=== PATIENT | female | born 1960 | race Asian ===

== ENCOUNTER 2021-06-27 11:31 | Outpatient (REF) | payer OTHER, SELFPAY ==
[2021-06-27 12:35] LABS: Influenza A PCR NEGATIVE (Negative); Influenza B PCR NEGATIVE (Negative); Resp Syncy Virus RNA Qual PCR NEGATIVE (Negative); SARS COV2 PCR INHOUSE NEGATIVE (Negative)
== END 2021-06-27 11:32 | disposition home or self-care (01) ==
LOC: HO.LAB 11:31
PROVIDERS: Visit Provider Internal Medicine
DX: Z20.822 Contact with and (suspected) exposure to COVID-19 (principal)
CPT/HCPCS: 0241U; 36415; C9803

== ENCOUNTER 2024-05-25 10:09 | Outpatient (AMB) | payer OTHER, SELFPAY ==
[2024-05-25 10:21] VITALS: BP 110/76; PULSE 80; RESP 15; O2SAT 96; BMI 34.0
--- NOTE | 2024-05-25 10:21 | A.OFFVIS_ITS ---
Vital Signs 05/25/24 10:21 Height 5 ft 3 in Weight 192 lb BMI 34.0 BP 110/76 Blood Pressure Location Rt brachial Position Sitting Respiration 15 Pulse 80 Pulse Oximetry (%) 96 Oxygen Delivery Method Room Air Intake Visit Reasons: back pain Allergies latex Allergy (Verified 05/26/24 14:32) hives, swelling Medication List - Last Reconciled 05/25/24 by Cara Mcgovern LPN acetaminophen 650 mg PO QID PRN amlodipine 10 mg PO DAILY aspirin 81 mg PO DAILY atorvastatin 80 mg PO DAILY clopidogrel 75 mg PO DAILY losartan 25 mg PO DAILY metoprolol succinate ER (Toprol XL) 25 mg PO DAILY HPI HPI back pain: Details: 63-year-old female who presents today to the office for an evaluation of back pain.? She reports pain in her back that radiates to the right thigh and the calf. The pain is worse with standing and walking. She reports muscle stiffness in her back and leg. She has gait imbalance issues but suspects it might be related to her knee pain. She has recently received intraarticular knee injection in her left knee. She has not received a back injection recently. She did receive a facet injection at [facility] which provided short-term relief. She had multiple injections with Dr. Martínez in the past. She is status post right TKR. She was supposed to undergo left TKR but her surgeon recommended treating back pain first. Her left TKR plan was complicated by a cardiac attack, and she had a stent placed. [facility] Medical History (Updated 06/09/24 @ 14:16 by Darius Eisenberg MD) Asthma Surgical History (Updated 05/26/24 @ 14:31 by Nova Becerra Archie) History of total right knee replacement History of heart artery stent Family History (Updated 05/27/24 @ 11:32 by Lashaun Wetzel) Brother Heart attack Sister Stented coronary artery Social History (Updated 05/27/24 @ 11:33 by Lashaun Wetzel) Alcohol intake: never Patient Tobacco Use Status: Never used Tobacco Current occupational status: unemployed Review of Systems Const All systems reviewed & are unremarkable except as noted in HPI and below Physical Exam Vital Signs: Last Vital Signs Pulse 80 05/25/24 10:21 Resp 15 05/25/24 10:21 BP 110/76 05/25/24 10:21 Pulse Ox 96 05/25/24 10:21 Oxygen Delivery Method Room Air 05/25/24 10:21 BMI result Body Mass Index 34.0 General: Appears afebrile. Alert and oriented. Mood and affect appropriate. Follows and participates in conversation appropriately. Respiratory effort is unlabored. Able to transition from sit to stand unassisted. Ambulates with bilaterally normal heel strike and toe off. Results Reviewed Results Reviewed: No imaging is available for review. Assessment & Plan Assessment & Plan (1) Lumbar radiculopathy: Code(s): M54.16 - Radiculopathy, lumbar region Category: Medical (2) Lumbar spondylosis: Code(s): M47.816 - Spondylosis without myelopathy or radiculopathy, lumbar region Category: Medical Plan I recommended continuing conservative management at this time, given her upcoming travel. Once she is back from her travels, we will consider transforaminal epidural steroid injection vs. facet blocks vs. temporary PNS b ased on her symptoms at the time. Scribed for Dr. Eisenberg by Rohan Ward, medical record librarian, on 05/25/2024. I, Dr. Eisenberg, have personally reviewed and agree with the information entered by the scribe. Coding Level of Care Code New Pt Level 4 (26806) Diagnoses Lumbar radiculopathy M54.16 Lumbar spondylosis M47.816
== END 2024-05-25 10:59 | disposition home or self-care (01) ==
LOC: HO.PMC 10:09
PROVIDERS: PCP Family Medicine; Visit Provider Internal Medicine
DX: M54.16 Radiculopathy, lumbar region (principal); M47.816 Spondylosis without myelopathy or radiculopathy, lumbar region
CPT/HCPCS: 99204

== ENCOUNTER → 2024-05-25 10:09 | Outpatient (BNVA) | payer OTHER, SELFPAY | PROVIDERS: PCP Family Medicine; Visit Provider Internal Medicine ==

== ENCOUNTER 2024-05-26 09:47 | Outpatient (REF) | payer OTHER, SELFPAY | END 2024-05-26 09:48 | disposition home or self-care (01) | LOC: HO.HOSX 09:47 | PROVIDERS: Visit Provider Orthopaedic Surgery | DX: M25.562 Pain in left knee (principal) | CPT/HCPCS: 73562 ==

== ENCOUNTER 2024-05-26 13:57 | Outpatient (AMB) | payer OTHER, SELFPAY ==
--- NOTE | 2024-05-26 14:08 | MHC.OFFVIS ---
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 The patient did undergo right total knee replacement surgery on 05/14/2023 performed by another surgeon. She reports minimal discomfort in her right knee. Her left knee pain has gotten worse over the last year in spite of continued non operative treatments. The patient states that she was due to undergo left total knee replacement surgery this past summer but suffered a myocardial infarction on 11/26/2023. She underwent cardiac stent placement at [facility] the following day. She is due to see her undercutter over the next few weeks. The patient did have a cortisone injection given into her left knee on 05/11/2024. She got only temporary relief from that injection. The patient has difficulty walking even short distances because of her knee pain. She has tried Tylenol and aspirin which gave her minimal relief. She has had viscosupplementation injections in the past which gave her fairly good relief. Allergies latex Allergy (Verified 05/26/24 14:32) hives, swelling Medication List - Last Reconciled 05/26/24 by Miguel Dickson MD acetaminophen 650 mg PO QID PRN amlodipine 10 mg PO DAILY aspirin 81 mg PO DAILY atorvastatin 80 mg PO DAILY clopidogrel 75 mg PO DAILY losartan 25 mg PO DAILY metoprolol succinate ER (Toprol XL) 25 mg PO DAILY [facility] Surgical History (Updated 05/26/24 @ 14:31 by FRANCISCO Hernandez) History of total right knee replacement History of heart artery stent Social History (Updated 05/26/24 @ 14:31 by FRANCISCO Hernandez) Patient Tobacco Use Status: Never used Tobacco Current occupational status: unemployed Physical Exam Vital Signs: BMI result Body Mass Index 34.0 Const Other: Well-nourished well-developed very friendly female awake alert and oriented x3 in no acute distress Extrem Other: Bilateral lower extremity examination shows good capillary refill, no skin lesions noted, normal sensation light touch Left knee examination shows a minimal effusion, palpable crepitus with range of motion, pain with range of motion, no instability Results Reviewed Results Reviewed: X-rays of the patient's left knee show end-stage degenerative joint disease with grade 4 [id number] arthritis in the medial compartment, subchondral sclerosis, no acute bony abnormalities Assessment & Plan Assessment & Plan (1) Osteoarthritis of left knee: Code(s): M17.12 - Unilateral primary osteoarthritis, left knee Category: Medical Plan Mrs. Mello presents with progressively worsening left knee pain due to osteoarthritis. I had a lengthy discussion with the patient regarding the treatment options. She wishes to hold off on left total knee replacement surgery for now. I agree with this plan. I will see whether or not the patient's insurance company will cover another viscosupplementation injection for her left knee. I will see her back once the injection is available. If she fails continued non operative treatments we will further discuss the risks and benefits of left total knee replacement surgery. The patient will follow-up as instructed. I spent 20 minutes in reviewing the patient's records and imaging studies, seeing the patient and documenting in the medical record. Orders: Orders XR knee LT 3V Today M25.562 - Pain in left knee Coding Level of Care Code New Pt Level 3 (80695) Complex EM visit Add On G2211 Diagnoses Osteoarthritis of left knee M17.12
[2024-05-26 14:33] VITALS: BMI 34.0
== END 2024-05-26 14:51 | disposition home or self-care (01) ==
LOC: HO.HOS 13:57
PROVIDERS: Visit Provider Orthopaedic Surgery
DX: M17.12 Unilateral primary osteoarthritis, left knee (principal)
CPT/HCPCS: 99203; G2211

== ENCOUNTER 2024-05-27 10:45 | Outpatient (AMB) | payer OTHER, SELFPAY ==
--- NOTE | 2024-05-27 11:18 | MHC.OFFVIS ---
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 She has history of coronary disease and had presentation for acute coronary syndrome and circumflex PCI done by Dr. Ramirez recently. She is on dual antiplatelet therapy at this point. She also had diffuse LAD stenosis at that time which was decided to be medically managed. She has done well since then. She is on Toprol-XL amlodipine and losartan. Blood pressure is well controlled. Taking medications regularly. Denying any significant symptoms. She had right knee surgery and subsequently developed some back issues which she is still struggling with. 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 She is asking whether she can have left knee surgery done. [facility] Medical History (Updated 05/27/24 @ 15:23 by Peterson Crocker MD) Asthma Surgical History (Updated 05/26/24 @ 14:31 by Nova Becerra Archie) History of total right knee replacement History of heart artery stent Family History (Updated 05/27/24 @ 11:32 by Lashaun Wetzel) Brother Heart attack Sister Stented coronary artery Social History (Updated 05/27/24 @ 11:33 by Lashaun Wetzel) Alcohol intake: never Patient Tobacco Use Status: Never used Tobacco Current occupational status: unemployed Review of Systems Const Denies weakness ENT Denies dizziness Card Denies chest pain, Denies chest pain with activity, Denies syncope, Denies rapid heart rate, Denies pedal edema, Denies edema, Denies leg edema, Denies lightheadedness, Denies palpitations, Denies dyspnea, Denies dyspnea on exertion and Denies orthopnea Resp Denies cough, Denies dyspnea and Denies dyspnea on exertion GI Denies hematochezia and Denies change in stool character Musc Denies abnormal gait, Denies muscle cramps, Denies muscle weakness, Denies numbness, Denies radiating pain into limb and Denies tingling Neuro Denies abnormal gait, Denies dizziness, Denies syncope, Denies numbness, Denies tingling and Denies weakness Endo Denies palpitations Physical Exam Vital Signs: Last Vital Signs Pulse 67 05/27/24 11:19 BP 118/70 05/27/24 11:19 BMI result Body Mass Index 33.2 GENERAL APPEARANCE: in no acute distress, pleasant. NECK: no carotid bruit, no jugular venous distention. SKIN: no suspicious lesions, warm and dry. HEART: no murmurs, regular rate and rhythm. LUNGS: clear to auscultation bilaterally. ABDOMEN: soft, nontender. EXTREMITIES: no edema. PERIPHERAL PULSES: equal. NEUROLOGIC: No gross deficits, AAO X 3 Office Procedures EKG Details: Sinus rhythm 67 beats per minute, normal axis, normal ECG with QT interval 418 milliseconds [id number], Complete Assessment & Plan Assessment & Plan (1) Coronary artery disease: Code(s): I25.10 - Atherosclerotic heart disease of [place] coronary artery without angina pectoris Category: Medical (2) Stable angina: Code(s): I20.89 - Other forms of angina pectoris Category: Medical Plan Pleasant 63 year female who is here for 1st office visit. She has background of coronary disease with acute coronary syndrome presentation and left circumflex PCI done by Dr. Ramirez. Lad had diffuse disease which was medically treated. Her blood pressure is well controlled. She wants to undergo left knee surgery but already has been getting some back issues. I have advised her that she should let the back problem settled before she goes for left knee surgery because it may limit her further and affect her rehabilitation and recovery. She has not high-risk for surgery though and is intermediate risk in case she wants to pursue that down the line. I have advised her to complete 1 year of dual antiplatelet therapy but if situation changes and she needs urgent surgery then Plavix can be held and she can go for surgery on aspirin. Toprol-XL should not be discontinued in the perioperative period. Coding Level of Care Code New Pt Level 4 (56334) Diagnoses Coronary artery disease I25.10 Stable angina I20.89 CPT Codes EKG - CPT: 22337-[id number], Complete ([id number])
[2024-05-27 11:19] VITALS: BP 118/70; PULSE 67; BMI 33.2
== END 2024-05-27 11:50 | disposition home or self-care (01) ==
LOC: HO.HCS 10:46
PROVIDERS: Visit Provider Internal Medicine Cardiovascular Disease
DX: I25.10 Atherosclerotic heart disease of native coronary artery without angina pectoris (principal); I20.89 Other forms of angina pectoris
CPT/HCPCS: 93010; 99204

== ENCOUNTER → 2024-05-27 10:45 | Outpatient (BNVA) | payer OTHER, SELFPAY | PROVIDERS: Visit Provider Internal Medicine Cardiovascular Disease | DX: I25.118 Atherosclerotic heart disease of native coronary artery with other forms of angina pectoris (principal) | CPT/HCPCS: 93005 ==

== ENCOUNTER 2024-08-18 14:47 | Outpatient (AMB) | payer OTHER, SELFPAY ==
--- NOTE | 2024-08-18 14:53 | A.OFFVIS_ITS ---
Vital Signs 08/18/24 14:56 Height 5 ft 3 in Weight 187 lb 6 oz BMI 33.2 Intake Visit Reasons: Inj-Left Knee Durolane Intake Note: Brittani is a 63 year old female who presents with complaints of progressively worsening left knee pain. She describes her pain as sharp and severe in nature. She has had cortisone injections in the past which gave her minimal relief. She has also had viscosupplementation injections which gave her temporary relief. If her pain continues in spite of non operative treatment she is considering undergoing left total knee replacement surgery later this year. Allergies latex Allergy (Verified 08/18/24 14:56) hives, swelling Medication List - Last Reconciled 08/18/24 by Miguel Dickson MD acetaminophen 650 mg (2 x 325 mg) PO QID PRN amlodipine 10 mg PO DAILY aspirin 81 mg PO DAILY atorvastatin 80 mg PO DAILY clopidogrel 75 mg PO DAILY losartan 25 mg PO DAILY metoprolol succinate ER (Toprol XL) 25 mg PO DAILY ON LICENSE OF [facility] Medical History (Updated 06/09/24 @ 14:16 by Darius Eisenberg MD) Asthma Surgical History (Updated 05/26/24 @ 14:31 by Nova Becerra [facility]) History of total right knee replacement History of heart artery stent Family History (Updated 05/27/24 @ 11:32 by Lashaun Wetzel) Brother Heart attack Sister Stented coronary artery Social History (Updated 05/27/24 @ 11:33 by Lashaun Wetzel) Alcohol intake: never Patient Tobacco Use Status: Never used Tobacco Current occupational status: unemployed Physical Exam Vital Signs: BMI result Body Mass Index 33.2 Const Other: Well-nourished well-developed very friendly female awake alert and oriented x3 in no acute distress Extrem Other: Left knee examination shows a minimal effusion, palpable crepitus with range motion, pain with range of motion, range of motion from -3 degrees to 115 degrees, no instability Office Procedures AMB Joint Injection/Aspiration Joint Injection/Aspiration Primary Site: left knee Prep: site was prepped using aseptic technique Injected: 60 mg of (Durolane viscosupplementation) and 1% plain lidocaine Procedure: The patient tolerated the procedure well Coding 31683 - Large joint Procedure code (CPT) selection complete Results Reviewed Results Reviewed: X-rays of the patient's left knee taken previously show severe joint space narrowing, subchondral sclerosis, no acute bony abnormalities Assessment & Plan Assessment & Plan (1) Osteoarthritis of left knee: Code(s): M17.12 - Unilateral primary osteoarthritis, left knee Category: Medical Plan Ms. Mello presents with left knee pain due to osteoarthritis. The risks and be nefits of a left knee Durolane viscosupplementation injection were discussed at length with the patient. The patient wished to proceed. She tolerated the injection well. If she does not get lasting relief from the injection she is considering undergoing left total knee replacement surgery later this year. She will contact my office to pick a surgery date should she choose to do so. I discussed with the patient the fact that she should have no lasting disability from knee arthritis after undergoing total knee replacement surgery. Feel free to call me at any time should questions regarding her orthopedic management arise. I spent 21 minutes in reviewing the patient's records and imaging studies, seeing the patient and documenting in the medical record. Orders: Orders AMB Joint Injection/Aspiration Today M17.12 - Unilateral primary osteoarthritis, left knee Coding Level of Care Code Est Pt Level 3 (21500) Complex EM visit Add On G2211 Diagnoses Osteoarthritis of left knee M17.12 CPT Codes Coding - 75067 Large joint: 12225 - Large joint ([id number])
[2024-08-18 14:56] VITALS: BMI 33.2
--- OUTSIDE RECORDS SUMMARY | 2024-08-18 15:47 | XMS_ITS | Patient Health Record ---
[facility] [place] Address [address] [place] [address] Care Team Providers Care Director Of Counterintelligence Name Role Phone Germania Ruffin Primary Care Provider Kelvin Sullivan Unavailable [phone] Allergies Allergen (clinical drug ingredient) Drug/Non Drug Allergy documented on EMR Reaction Allergy Type Onset Date Status Latex Latex Unknown Allergy Active Reason For Referral No Information Medications Medication SIG (Take, Route, Fr equency, Duration) Notes Start Date End Date Status Acetaminophen 500 MG 1 capsule as needed Orally every 6 hrs Active Celecoxib 100 MG 1 capsule with food Orally Once a day for 30 day(s) Active Social History Tobacco Use: Social History Observation Description Date Details (start date - stop date) Never Smoker NA - NA Tobacco Use/Smoking Question Answer Notes Are you a: nonsmoker Additional Findings: Tobacco Non-User Current no n-smoker Alcohol Screen Question Answer Notes Did you have a drink containing alcohol in the p ast year? No Points 0 Interpretation Negative Tobacco use other than smoking: Question Answer Notes Are you an other tobacco user? No Plan Of Treatment No Information Insurance Providers Payer Name Payer Address Payer Phone Subscriber Number Group Number Insured Name Patient Relationship to Insured Coverage Start Date Coverage End Date [facility] [address] [place] [address] [phone] [id number] Brittani Mello Self - patient is the insured Medical (General) History Medical History History ICD Code asthma Back,Hip,and Knee pain Measles Mumps Chicken pox osteoarthritis Varicose veins Bunion Plantar fasciitis Surgical History Surgery Date(Month/Year) section 1993, 1996 appendectomy 2007
== END 2024-08-18 15:16 | disposition home or self-care (01) ==
PROVIDERS: PCP Family Medicine; Visit Provider Orthopaedic Surgery
DX: M17.12 Unilateral primary osteoarthritis, left knee (principal)
CPT/HCPCS: 20610; 99213

== ENCOUNTER → 2024-08-18 14:47 | Outpatient (BNVA) | payer OTHER, SELFPAY | PROVIDERS: PCP Family Medicine; Visit Provider Orthopaedic Surgery | DX: M17.12 Unilateral primary osteoarthritis, left knee (principal) | CPT/HCPCS: 20610; J2003; J7318 ==

== ENCOUNTER 2024-09-30 14:05 | Outpatient (AMB) | payer OTHER, SELFPAY ==
--- NOTE | 2024-09-30 14:12 | A.OFFVIS_ITS ---
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 She has history of coronary disease and had presentation for acute coronary syndrome and circumflex PCI done by Dr. Ramirez recently. She is on dual antiplatelet therapy at this point. She also had diffuse LAD stenosis at that time which was decided to be medically managed. She has done well since then. She is on Toprol-XL amlodipine and losartan. Blood pressure is well controlled. Taking medications regularly. Denying any significant symptoms. She had right knee surgery and subsequently developed some back issues which she is still struggling with. 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 She is asking whether she can have left knee surgery done. 09/30/2024: She is here for follow-up. Denying chest discomfort or shortness of breath. Main issue is arthritis in left knee as well as low back pain. She got a knee injection. She is following with pain management and was advised that lower back injection may help her but she is on Plavix. She is at this stage 10 months out of her primary event and can interrupt Plavix if required. [facility] Medical History Asthma Surgical History History of total right knee replacement History of heart artery stent Family History Brother Heart attack Sister Stented coronary artery Social History Alcohol intake: never Patient Tobacco Use Status: Never used Tobacco Current occupational status: unemployed Review of Systems Const Denies chills, Denies fatigue, Denies fever(s), Denies frequent falls, Denies weakness, Denies weight gain and Denies weight loss ENT Denies dizziness Card Denies chest pain, Denies leg edema, Denies lightheadedness, Denies palpitations, Denies dyspnea and Denies dyspnea on exertion Resp Denies cough, Denies dyspnea and Denies dyspnea on exertion GI Denies hematochezia Musc Denies abnormal gait, Denies muscle weakness, Denies numbness, Denies radiating pain into limb and Denies tingling Neuro Denies abnormal gait, Denies dizziness, Denies frequent falls, Denies numbness, Denies tingling and Denies weakness Endo Denies fatigue and Denies palpitations Physical Exam Vital Signs: Last Vital Signs Pulse 79 09/30/24 14:17 BP 130/66 09/30/24 14:17 BMI result Body Mass Index 34.5 GENERAL APPEARANCE: in no acute distress, pleasant. NECK: no carotid bruit, no jugular venous distention. SKIN: no suspicious lesions, warm and dry. HEART: no murmurs, regular rate and rhythm. LUNGS: clear to auscultation bilaterally. ABDOMEN: soft, nontender. EXTREMITIES: no edema. PERIPHERAL PULSES: equal. NEUROLOGIC: No gross deficits, AAO X 3 Assessment & Plan Assessment & Plan (1) Coronary artery disease: Code(s): I25.10 - Atherosclerotic heart disease of [place] coronary artery without angina pectoris Category: Medical (2) Stable angina: Code(s): I20.89 - Other forms of angina pectoris Category: Medical Plan Pleasant 63 year female who is here for follow-up. She has background of coronary disease with acute coronary syndrome presentation and left circumflex PCI done by Dr. Ramirez. LAD had diffuse disease which was medically treated. Her blood pressure is well controlled. She has knee arthritis. She is intermediate risk for surgery whenever she plans to do that. Ideally should be operated on aspirin and Toprol should not be stopped in the perioperative period. In terms of back injection, she can hold Plavix for 5 days and get the injection. After november I think Plavix will be discontinued and she will be on aspirin monotherapy which I have explained to her. Thank you for allowing me to participate in the care of your patient. Please feel free to contact me if you have any questions. Orders: Orders TSH reflex Free T4 Today R63.5 - Abnormal weight gain Coding Level of Care Code Est Pt Level 4 (10015) Diagnoses Coronary artery disease I25.10 Stable angina I20.89
[2024-09-30 14:17] VITALS: BP 130/66; PULSE 79; BMI 34.5
--- OUTSIDE RECORDS SUMMARY | 2024-09-30 16:40 | XMS_ITS | Patient Health Record ---
Author [facility] [place] Address [address] [place] [address] Care Team Providers Care Educational Coordinator Name Role Phone Germania Ruffin Primary Care Provider Kelvin Sullivan Unavailable [phone] Allergies Allergen (clinical drug ingredient) Drug/Non Drug [...] Insured Coverage Start Date Coverage End Date [facility] [address] [place] [address] [id number] Brittani Mello Self - patient is the insured Medical (General) History Medical History History ICD Code asthma Back,Hip,and Knee pain Measles Mumps Chicken pox osteoarthritis Varicose veins Bunion Plantar fasciitis Surgical History Surgery Date(Month/Year) section 1993, 1996 appendectomy 2007
== END 2024-09-30 14:59 | disposition home or self-care (01) ==
LOC: HO.HCS 14:06
PROVIDERS: PCP Family Medicine; Visit Provider Internal Medicine Cardiovascular Disease
DX: I25.118 Atherosclerotic heart disease of native coronary artery with other forms of angina pectoris (principal)
CPT/HCPCS: 99214

== ENCOUNTER → 2024-09-30 14:05 | Outpatient (BNVA) | payer OTHER, SELFPAY | PROVIDERS: PCP Family Medicine; Visit Provider Internal Medicine Cardiovascular Disease ==

== ENCOUNTER 2024-10-14 13:41 | Outpatient (AMB) | payer OTHER, SELFPAY ==
--- NOTE | 2024-10-14 13:44 | MHC.PC.OV ---
Vital Signs 10/14/24 13:46 Height 5 ft 2.6 in Weight 197 lb 6 oz BMI 35.4 BP 130/70 Blood Pressure Location Lt brachial Position Sitting Pulse 74 Pulse Source Pulse Oximeter Temp 97.1 F Temp Source Temporal Artery Scan Pulse Oximetry (%) 95 Oxygen Delivery Method Room Air Intake Visit Reasons: establish care Intake Note: Patient is a new patient here to establish care for HTN, Heart Attack, Arthritis, lower back pain, Right leg pain. Transferring care from Aliya Cedeño. Medical records have been requested and have received. Jack Setter Required: No Landscape Horticulture Instructor: Present Accompanied by: Spouse Allergies latex Allergy (Verified 10/14/24 13:46) hives, swelling Medication List - Last Reconciled 10/14/24 by Tia Thomas PA-C acetaminophen 975 mg PO TID PRN amlodipine 10 mg PO DAILY aspirin 81 mg PO DAILY atorvastatin 80 mg PO DAILY clopidogrel 75 mg PO DAILY losartan 25 mg PO DAILY metoprolol succinate ER (Toprol XL) 25 mg PO DAILY therapeutic multivitamin 1 tab PO DAILY Tobacco use date assessed: 10/14/24 Dental Screening Dental Screen Date: 10/14/24 Did you have a dental visit in the last 12 months?: Yes Did you have a dental problem in the last 6 months where you did not have access to dental care?: No Was dental information given to patient?: Patient has dentist HPI establish care HPI Details 63 year old female with past medical history of stable angina with watery artery disease and lumbar radiculopathy coming to the office for the 1st time.? In review of the notes patient follows with [facility] Cardiology last seen 09/30/2024. colonoscopy: 4-5 years ago mammogram: 2023 Presenting with weight gain and back pain. Reported a myocardial infarction last year, leading to stent placement and regular cardiology follow-up. Consideration for discontinuation of Plavix by November. Reports absence of chest pain or dyspnea. Post heart attack, she notes a 20-pound weight increase. Despite dietary vigilance, including restricted caloric intake, weight gain persists. Engages in limited physical activity due to pain. Reports persistent back pain, exacerbated following knee surgery and myocardial infarction, with radiation down the legs upon standing. Intermittent use of Tylenol due to drowsiness from prescribed medication. Weight gain coincides with medication changes post-heart attack, impacting patient's anxiety levels, although screening today is negative for depression/anxiety. [facility] Medical History Asthma Surgical History History of appendectomy History of 2 sections History of total right knee replacement History of heart artery stent Family History Brother Heart attack Sister Stented coronary artery [facility] Alcohol intake: never Patient Tobacco Use Status: Never used Tobacco e-Cigarette/Vaping Use: Never Used Second Hand Smoke Exposure: No service: No Current occupational status: unemployed Cognitive needs: No Hearing needs: No Vision needs: No Female Reproductive History Menstrual control method: none Questionnaire PHQ-9 Over the last 2 weeks, how often have you been bothered by any of the following problems? 1. Little interest or pleasure in doing things: not at all 2. Feeling down, depressed, or hopeless: not at all 3. Trouble falling or staying asleep, or sleeping too much: not at all 4. Feeling tired or having little energy: several days 5. Poor appetite or overeating: not at all 6. Feeling bad about yourself - or that you are a failure or have let yourself or your family down: not at all 7. Trouble concentrating on things, such as reading the newspaper or watching television: not at all 8. Moving or speaking so slowly that other people could have noticed. Or the opposite - being so fidgety or restless that you have been moving around a lot more than usual: not at all 9. Thoughts that you would be better off or of hurting yourself in some way: not at all Total score: 1 Depression Screening Interpretation: Negative Depression Screening Done: Yes Source: Developed by Drs. Pantera Zuniga, Keysha Brown, Aurelio Hernández and colleagues, with an educational moshe from [employer]. Thrive Questionnaire Date Thrive assessed: 10/14/24 I am a: Patient What is your living situation today?: I have a steady place to live Within the past 12 months, did the food you bought not last and you didn't have the money to get more?: Often true Within the past 12 months, did you worry whether your food would run out before you got money to buy more?: Sometimes True Do you have trouble paying for medicines?: Yes Do you have trouble getting transportation to medical appointments?: Yes Do you have trouble paying your heating and electricity bill?: No Do you have trouble taking care of your child, family member or friend?: I choose not to answer this question Do you have trouble with day-to-day activities such as bathing, preparing meals, shopping, managing finances, etc.?: I choose not to answer this question Are you currently unemployed and looking for a job?: No Are you interested in more education?: No Please select the resources that you would like help with: None Currently or been in a relationship where the following occur: No concerns reported THRIVE Score: 3 AUDIT C Alcohol Use Questionnaire (AUDIT-C) 1. How often do you have a drink containing alcohol?: Never Total Score: 0 BARBARA-7 AMB Questionnaire BARBARA-7 Date BARBARA - 7 assessed: 10/14/24 Feeling nervous, anxious, or on edge: 0 = Not at all Not being able to stop or control worryin = Not at all Worrying too much about different things: 0 = Not at all Trouble relaxin = Not at all Being so restless that it is hard to sit still: 1 = Several days Becoming easily annoyed or irritable: 0 = Not at all Feeling afraid as if something awful might happen: 0 = Not at all Total BARBARA-7 score (0-4 normal; 5-9 mild; 10-14 moderate; 15-21 severe): 1 Source: Developed by Drs. Pantera Zuniga, Keysha Brown, Aurelio Hernández and colleagues, with an educational moshe from [employer]. BARBARA-7 Assessment Billing BARBARA-7 Assessment Tool: BARBARA-7 Assessment 22595 Review of Systems Const Denies body aches, Denies chills, Denies fever(s), Denies headache(s) and Denies poor appetite Eyes Reports no additional complaints ENT Denies dysphagia, Denies dizziness, Denies headache(s) and Denies odynophagia Card Denies chest pain, Denies syncope, Denies edema, Denies irregular heart rhythm, Denies lightheadedness and Denies dyspnea Resp Denies cough and Denies dyspnea GI Denies abdominal pain, Denies constipation, Denies dysphagia, Denies diarrhea, Denies nausea, Denies odynophagia and Denies vomiting Reports no additional complaints Musc Reports no additional complaints and Denies abnormal gait Skin/Breast Reports system reviewed and no additional complaints, except as documented Neuro Denies abnormal gait, Denies dizziness, Denies syncope and Denies headache(s) Psych Reports no additional complaints Physical exam (Primary Care) Vital Signs: Last Vital Signs Temp 97.1 F 10/14/24 13:46 Pulse 74 10/14/24 13:46 BP 130/70 10/14/24 13:46 Pulse Ox 95 10/14/24 13:46 Oxygen Delivery Method Room Air 10/14/24 13:46 BMI result Body Mass Index 35.4 Tobacco/Smoking Status: Tobacco use Status Tobacco use date assessed 10/14/24 10/14/24 13:47 Patient Tobacco Use Status Never used Tobacco 10/14/24 13:46 e-Cigarette/Vaping Use Never Used 10/14/24 13:47 PHQ-9: PHQ-9 Score PHQ-9: Total score 1 10/14/24 14:02 Depression Screening Interpretation: Negative Thrive Assessment: Date of Thrive Assessment Date Thrive assessed 10/14/24 10/14/24 13:46 Currently or been in a relationship where the following occur: No concerns reported Const General: cooperative, healthy appearing, comfortable and no acute distress Orientation/consciousness: patient oriented x3 [facility] Head: Yes normocephalic Ears: hearing grossly normal bilaterally General nose exam: Normal external nose present Eyes General: appearance normal, both eyes and all related structures Conjunctivae: conjunctivae normal Neck Neck: Yes full ROM and Yes no lymphadenopathy Resp Effort & Inspection: normal respiratory effort Auscultation: clear to auscultation bilaterally, no crackles, no rales, no rhonchi and no wheezes Cardio Rate: regular rate Rhythm: regular rhythm Skin General skin exam: no rashes or lesions noted Neuro General: patient oriented x3 Gait exam (Neuro): Normal gait present Extrem General: Yes normal to inspection, Yes full ROM and No edema Psych Affect: normal affect Attitude: cooperative Insight: Good insight present (Psych) Judgement: Good judgement present (Psych) Coding Level of Care Code New Pt Level 4 (99647) Diagnoses Lumbar spondylosis M47.816 Lumbar radiculopathy M54.16 Coronary artery disease I25.10 Osteoarthritis of left knee M17.12 Stable angina I20.89 Screening for diabetes mellitus Z13.1 Severe obesity (BMI 35.0-35.9 with comorbidity) E66.01; Z68.35 Additional Codes BARBARA-7 Assessment Billing - BARBARA-7 Assessment Tool: BARBARA-7 Assessment 39586 ([id number]) Assessment & Plan Assessment & Plan (1) Lumbar spondylosis: Code(s): M47.816 - Spondylosis without myelopathy or radiculopathy, lumbar region Category: Medical Plan: Following with pain management for back pain planned to have injection. Continue to follow with pain management (2) Lumbar radiculopathy: Code(s): M54.16 - Radiculopathy, lumbar region Category: Medical Plan: See above plan for lumbar spondylosis (3) Coronary artery disease: Code(s): I25.10 - Atherosclerotic heart disease of [place] coronary artery without angina pectoris Category: Medical Plan: Advised good control of cholesterol, blood pressure and blood sugars. Currently on aspirin and clopidogrel and following with Cardiology. (4) Osteoarthritis of left knee: Code(s): M17.12 - Unilateral primary osteoarthritis, left knee Category: Medical Plan: Patient is being evaluated by Orthopedics has been receiving left knee injections considering left knee replacement. (5) Stable angina: Code(s): I20.89 - Other forms of angina pectoris Category: Medical Plan: Continue to follow up with Cardiology (6) Screening for diabetes mellitus: Code(s): Z13.1 - Encounter for screening for diabetes mellitus Category: Medical Plan: Ordered for updated blood work (7) Severe obesity (BMI 35.0-35.9 with comorbidity): Code(s): E66.01 - Morbid (severe) obesity due to excess calories; Z68.35 - Body mass index [BMI] 35.0-35.9, adult Category: Medical Plan: Healthy diet and regular exercise is encouraged. Patient was counseled today on the risks and benefits of GLP-1 injections as well as the dosing schedule. She has no family history or personal history of thyroid disease and no gallbladder disease. Discussed with the patient the potential GI side effects of this medication. Plan to have repeat blood work after one month of therapy to monitor kidney and liver function before increasing the dose of this medication. Follow up in 2 months for a weight check. Valentine ordered at the request of her spout liner helper. Plan Ordered for updated blood work including cholesterol panel for further evaluation. This note was constructed using voice recognition software. While every effort has been made to ensure accuracy and hands and dial inspector, still areas may have been included sometimes these areas may affect the content or meeting of the given symptoms. Total time spent caring for the patient today was 30 minutes. This includes time spent before the visit reviewing the chart, time spent during the visit, and time spent after the visit and documentation. Patient was informed and verbally consented to the use of an ambient scribe for clinic note documentation during this visit. Orders: Orders Complete Blood Count Auto Diff Today Tia Thomas PA-C Z00.00 - Encounter for general adult medical examination without abnormal findings Comprehensive Met. Panel Today Tia Thomas PA-C Z00.00 - Encounter for general adult medical examination without abnormal findings Vitamin B12 and Folate Today Tia Thomas PA-C Z00.00 - Encounter for general adult medical examination without abnormal findings Vitamin D 25-OH Total Today Tia Thomas PA-C Z00.00 - Encounter for general adult medical examination without abnormal findings Free T4 (Free Thyroxine) Today Tia Tohmas PA-C Z00.00 - Encounter for general adult medical examination without abnormal findings Hemoglobin A1c Today Tia Thomas PA-C Z13.1 - Encounter for screening for diabetes mellitus TSH reflex Free T4 Today Tia Thomas PA-C Z00.00 - Encounter for general adult medical examination without abnormal findings Lipid Panel Today Tia Thomas PA-C E78.00 - Pure hypercholesterolemia, unspecified Medications: New semaglutide (weight loss) (Suzanvy) administer weeks 1 through 4 of therapy 0.25 mg (0.5 mL) subcut QWEEK 2 mL 0RF Tia Thomas PA-C Changed From acetaminophen 650 mg (2 x 325 mg) PO QID PRN 90 tabs 3RF pain To acetaminophen 975 mg PO TID PRN pain Peterson Crocker MD
[2024-10-14 13:46] VITALS: BP 130/70; PULSE 74; TEMP 36.2; O2SAT 95; BMI 35.4
== END 2024-10-14 14:21 | disposition home or self-care (01) ==
LOC: HO.HMCH 13:41
DX: M47.816 Spondylosis without myelopathy or radiculopathy, lumbar region (principal); I20.89 Other forms of angina pectoris; E66.01 Morbid (severe) obesity due to excess calories; Z68.35 Body mass index [BMI] 35.0-35.9, adult; M54.16 Radiculopathy, lumbar region; I25.10 Atherosclerotic heart disease of native coronary artery without angina pectoris; M17.12 Unilateral primary osteoarthritis, left knee; Z13.1 Encounter for screening for diabetes mellitus

== ENCOUNTER 2024-10-14 13:41 | Outpatient (REF) | payer OTHER, SELFPAY ==
[2024-10-14 14:54] LABS: MANUAL DIFF FLAG NO
[2024-10-14 15:26] LABS: Basophils Absolute Auto 0.1 X10*3/uL (0.0-0.2); Basophils Percent Auto 0.7 % (0-2); Eosinophils Absolute Auto 0.6 X10*3/uL (0.0-0.4); Eosinophils Percent Auto 8.5 % (0-4); Hematocrit 39.6 % (37.0-47.0); Hemoglobin 12.8 g/dl (12.0-16.0); Imm Gran Abs Auto 0.03 X10*3/uL (0.00-0.03); Imm Gran Pct Auto 0.4 % (0.0-0.4); Lymphocytes Percent Auto 26.2 % (20-40); Mean Corpuscular HGB Conc 32.3 g/dl (31.0-35.0); Mean Corpuscular Hemoglobin 29.6 pg (27.0-33.0); Mean Corpuscular Volume 91.5 fL (80.0-98.0); Mean Platelet Volume 10.3 fL (9.4-12.3); Monocytes Absolute Auto 0.8 X10*3/uL (0.1-1.2); Monocytes Percent Auto 10.8 % (2-11); NRBC Pct Auto 0.5 /100WBC (0.0-0.2); Neutrophils Percent Auto 53.4 % (45-73); Platelet Count 313 X10*3/uL (160-400); Red Blood Count 4.33 X10*6/uL (4.20-5.50); White Blood Count 7.5 X10*3/uL (4.8-10.8)
[2024-10-14 15:44] LABS: Estimated Average Glucose 120 mg/dL; Hemoglobin A1C 134.0094 umol/L; Hemoglobin A1c % 5.8 % (<6.0)
[2024-10-14 16:24] LABS: Folate 15.2 ng/mL (> or = 4.0); Vitamin B12 483 pg/mL (200-900)
[2024-10-14 16:26] LABS: Alanine Aminotransferase 27 U/L (0-31); Albumin Level 4.1 g/dL (3.5-5.0); Alkaline Phosphatase 95 U/L (39-117); Anion Gap 13 (12-20); Aspartate Amino Transferase 25 U/L (5-31); Bilirubin Total 0.9 mg/dL (0.0-1.0); Blood Urea Nitrogen 14 mg/dL (9-16); Calcium 9.2 mg/dL (8.4-10.2); Carbon Dioxide 24 mmol/L (22-29); Chloride 109 mmol/L (96-108); Cholesterol 165 mg/dL (<200); Estimated Glomerular Filt Rate > 60; Glucose Random 123 mg/dL (60-115); HDL Cholesterol 56 mg/dL (>40); LDL Cholesterol Calculated 94 mg/dL (<100); Potassium 4.2 mmol/L (3.3-5.1); Sodium 142 mmol/L (135-145); Total Protein 6.8 g/dL (6.5-8.0); Triglycerides 78 mg/dL (<150)
[2024-10-14 16:44] LABS: Free T4 (Free Thyroxine) 0.98 ng/dL (0.71-1.85); TSH reflex Free T4 1.36 uIU/mL (0.32-4.0); Vitamin D 25-OH Total 31.8 ng/mL (>30)
== END 2024-10-14 13:42 | disposition home or self-care (01) ==
LOC: HO.LAB 13:41
PROVIDERS: PCP Family Medicine
DX: Z76.89 Persons encountering health services in other specified circumstances (principal); M47.26 Other spondylosis with radiculopathy, lumbar region; M17.12 Unilateral primary osteoarthritis, left knee; I25.118 Atherosclerotic heart disease of native coronary artery with other forms of angina pectoris; E66.01 Morbid (severe) obesity due to excess calories; Z68.35 Body mass index [BMI] 35.0-35.9, adult; Z79.82 Long term (current) use of aspirin; Z00.00 Encounter for general adult medical examination without abnormal findings; E78.00 Pure hypercholesterolemia, unspecified; Z13.1 Encounter for screening for diabetes mellitus
CPT/HCPCS: 36415; 80053; 80061; 82306; 82607; 82746; 83036; 84439; 84443; 85025; 96127

== ENCOUNTER 2024-11-04 10:57 | Outpatient (AMB) | payer OTHER, SELFPAY ==
--- NOTE | 2024-11-04 10:58 | A.OFFVIS_ITS ---
Vital Signs 11/04/24 11:00 Height 5 ft 0.5 in Weight 196 lb BMI 37.6 BP 110/57 L Blood Pressure Location Lt brachial Position Sitting Respiration 16 Pulse 84 Pulse Source Pulse Oximeter Pulse Oximetry (%) 98 Oxygen Delivery Method Room Air Intake Visit Reasons: Back Pain Senior Administrative Associate Required: No Allergies latex Allergy (Verified 11/16/24 05:37) hives, swelling Medication List - Last Reconciled 11/04/24 by Cara Mgcovern LPN acetaminophen 975 mg PO TID PRN amlodipine 10 mg PO DAILY aspirin 81 mg PO DAILY atorvastatin 80 mg PO DAILY clopidogrel 75 mg PO DAILY losartan 25 mg PO DAILY metoprolol succinate ER (Toprol XL) 25 mg PO DAILY therapeutic multivitamin 1 tab PO DAILY HPI HPI Back Pain: Details: History of Present Illness The patient is a 63-year-old female presenting with leg pain. She reports the pain as descending down the leg and mentions that it is part of a multifaceted problem, indicating that one injection might not resolve all issues. Past measures have not completely alleviated the pain. Alongside this, she manages a diagnosis of diabetes mellitus. The patient is on anticoagulant therapy, currently using Clopidogrel, with plans to discontinue its use and wean down to a low-dose Aspirin (81 mg) alone in November. The discussion further touched on the economic implications of her medication regimens. Pain Description - Onset: Noted, but specific duration details absent. - Quality: Radiating pain descending down the leg. - Location: Primary symptom is leg pain, indicating significant radiating discomfort. - Exacerbating Factors: No specific factors mentioned. - Alleviating Factors: Indicates prior methods have been insufficient, injections are being considered for pain relief. - Functional Interference: Pain has multifaceted components suggesting interference with activities. Physical Exam - Appears afebrile. - Alert and oriented. - Mood and affect appropriate. - Follows and participates in conversation appropriately. - Respiratory effort is unlabored. - Able to transition from sit to stand unassisted. - Ambulates with bilaterally normal heel strike and toe off. - Able to stand and walk on toes and heels. - SLR positive on the right Results - Labs: Blood tests are mentioned to have been done, though specific results are not provided. - Tests: Plans to conduct appropriate diagnostics for pain evaluation mentioned without specific results. Pain Management - Affect: Discussion suggests leg pain has a significant impact, though details on mood impact are not specified. - Analgesia: Mention of using Clopidogrel with planned transition to Aspirin 81 mg; discussion suggests additional pain control measures are needed. - Adverse Effects: No specific adverse effects noted from current pain medications. - Activities of Daily Living: Pain is persistent and likely affecting daily life; injection noted as a planned intervention. - Aberrant Drug-Related Behaviors: None mentioned. [facility] Medical History Asthma Surgical History History of appendectomy History of 2 sections History of total right knee replacement History of heart artery stent Family History Brother Heart attack Sister Stented coronary artery Social History [facility]: [facility] Alcohol intake: never Patient Tobacco Use Status: Never used Tobacco e-Cigarette/Vaping Use: Never Used Second Hand Smoke Exposure: No service: No Current occupational status: unemployed Cognitive needs: No Hearing needs: No Vision needs: No Physical Exam Vital Signs: Last Vital Signs Pulse 84 11/04/24 11:00 Resp 16 11/04/24 11:00 BP 110/57 L 11/04/24 11:00 Pulse Ox 98 11/04/24 11:00 Oxygen Delivery Method Room Air 11/04/24 11:00 BMI result Body Mass Index 37.6 Assessment & Plan Assessment & Plan (1) Lumbar spondylosis: Code(s): M47.816 - Spondylosis without myelopathy or radiculopathy, lumbar region Category: Medical (2) Lumbar radiculopathy: Code(s): M54.16 - Radiculopathy, lumbar region Category: Medical Plan Plan The strategy to address the patient's leg pain includes potential pain-relieving injections due to its multifaceted nature, which indicates that a single treatment modality may not be enough. Discontinuation of Clopidogrel in November and transition to low-dose Aspirin 81 mg is planned, considering her anticoagulation therapy is reviewed in the context of leg pain management, diabetes, and economic considerations. Will plan for interlaminer lumbar ROBERT after plavix stops in November. Patient was informed and verbally consented to the use of an ambient scribe for clinic note documentation during this visit. Discussion Notes We discussed the leg pain in detail, identifying it as a complex issue requiring more than one type of intervention. I explained the rationale behind considering an injection, emphasizing its potential benefits despite not promising a complete resolution. The patient is informed about discontinuing Clopidogrel and transitioning to Aspirin, highlighting the need to ensure continued anticoagulation management. We discussed the costs associated with her medications and how these influence treatment decisions. Consent for possible interventions will be based on a continued dialogue regarding symptom improvement and integration with her broader health needs. Patient Instructions - Continue current medication regimen until advised otherwise. - Monitor for any changes in your leg pain and report worsening symptoms. - Prepare for potential adjustments to anticoagulation as discussed. - Stay attentive to overall blood glucose management given the context of diabetes. - Consider cost implications of treatments in plan adherence. - Follow up as scheduled for further treatment planning. Coding Level of Care Code Est Pt Level 4 (53586) Diagnoses Lumbar spondylosis M47.816 Lumbar radiculopathy M54.16
[2024-11-04 11:00] VITALS: BP 110/57; PULSE 84; RESP 16; O2SAT 98; BMI 37.6
--- OUTSIDE RECORDS SUMMARY | 2024-11-04 13:04 | XMS_ITS | Patient Health Record ---
[facility] [address] Address [address] [place] [address] Care Team Providers Care Automatic Beading Lathe Operator Name Role Phone Germania Ruffin Primary Care Provider Kelvin Sullivan Unavailable [phone] Allergies Allergen (clinical drug ingredient) Drug/Non Drug [...] Insured Coverage Start Date Coverage End Date [facility] [address] [place] [id number] Brittani Mello Self - patient is the insured Medical (General) History Medical History History ICD Code asthma Back,Hip,and Knee pain Measles Mumps Chicken pox osteoarthritis Varicose veins Bunion Plantar fasciitis Surgical History Surgery Date(Month/Year) section 1993, 1996 appendectomy 2007
== END 2024-11-04 11:27 | disposition home or self-care (01) ==
PROVIDERS: Visit Provider Internal Medicine
DX: M47.816 Spondylosis without myelopathy or radiculopathy, lumbar region (principal); M54.16 Radiculopathy, lumbar region
CPT/HCPCS: 99214

== ENCOUNTER 2024-11-12 06:24 | Outpatient (REF) | payer OTHER, SELFPAY | END 2024-11-12 06:25 | disposition home or self-care (01) | LOC: CF 06:24 | PROVIDERS: Visit Provider Internal Medicine | DX: Z13.89 Encounter for screening for other disorder (principal) ==

== ENCOUNTER 2024-11-16 05:30 | Emergency (ER) | payer OTHER, SELFPAY ==
[2024-11-16] VITALS (13 sets, daily range): BP systolic 105–148; BP diastolic 50–89; PULSE 76–115; RESP 14–18; TEMP 36.5–36.7; O2SAT 98–99; BMI 34.5
--- NOTE | 2024-11-16 | ECG_ITS ---
Test Reason : CP Blood Pressure : */* mmHG Vent. Rate : 78 BPM Atrial Rate : 78 BPM P-R Int : 160 ms QRS Dur : 74 ms QT Int : 382 ms P-R-T Axes : 54 -25 45 degrees QTcB Int : 435 ms Normal sinus rhythm Normal ECG No previous ECGs available Referred By: Generic ED Physician Electronically Signed By: Peterson Crocker
--- NOTE | ~2024-11-16 | XR_ITS ---
CLINICAL HISTORY: chest pain Chest one view Comparison: None Findings: No consolidation, venous distention, pulmonary edema, pleural effusion or pneumothorax. Normal heart size and mediastinal contour. Coronary artery stent and/or calcification. Calcific peritendinitis left shoulder. Otherwise bones intact. Soft tissues and upper abdomen are unremarkable. IMPRESSION: No acute cardiopulmonary process. This document has been electronically signed by: Celso Gonsales MD on 11/16/2024 06:33:30
--- NOTE | 2024-11-16 05:50 | ED_ITS ---
HPI - Chest Pain General Chief Complaint: Chest Pain Stated Complaint: Chest pain Time Seen by Provider: 11/16/24 05:50 Source: patient Mode of arrival: ambulatory Limitations: no limitations History of Present Illness ED Provider: HPI narrative: Patient's history of coronary artery disease status post stent placement 12/12 on aspirin and Plavix with history of hypertension and high cholesterol comes here when she woke up at 04:00 noticed midsternal chest pain heaviness no radiation no diaphoresis no nausea no vomiting felt slightly dizzy with chest pain no neck pain no arm pain no shortness of breath Related Data Home Medications ?Medication ?Instructions ?Recorded ?Confirmed acetaminophen 325 mg tablet 975 mg PO TID PRN pain 10/14/24 11/04/24 therapeutic multivitamin 1 tab PO DAILY 10/14/24 11/04/24 Previous Rx's ?Medication ?Instructions ?Recorded amlodipine 10 mg tablet 10 mg PO DAILY #90 tabs 07/10/24 aspirin 81 mg tablet,delayed 81 mg PO DAILY #90 tabs 07/10/24 release atorvastatin 80 mg tablet 80 mg PO DAILY #90 tabs 07/10/24 clopidogrel 75 mg tablet 75 mg PO DAILY #90 tabs 07/10/24 losartan 25 mg tablet 25 mg PO DAILY #90 tabs 07/10/24 metoprolol succinate 25 mg 25 mg PO DAILY #90 tabs 07/10/24 tablet,extended release 24 hr (Toprol XL) Allergies Allergy/AdvReac Type Severity Reaction Status Date / Time latex Allergy hives, Verified 11/16/24 05:37 swelling Review of Systems 2 Review of Systems: Yes all other systems are reviewed and are negative COUNTS INCLUDE 234 BEDS AT THE [facility] Past Medical History Medical History Asthma Surgical History History of appendectomy History of 2 sections History of total right knee replacement History of heart artery stent Family History Family History Brother Heart attack Sister Stented coronary artery Social History [facility] Alcohol intake: never Patient Tobacco Use Status: Never used Tobacco Smoked in Last 30 Days: No e-Cigarette/Vaping Use: Never Used Second Hand Smoke Exposure: No Use of substances other than those prescribed or required for medical reasons: No Advance Directives: No Advance Directives Information Provided: Yes Patient : No service: No Current occupational status: unemployed Cognitive needs: No Hearing needs: No Vision needs: No Physical Exam 2 Vital Signs: Vital Signs: Last Vital Signs Temp 98.0 F 11/16/24 06:24 Pulse 79 11/16/24 06:24 Resp 15 11/16/24 06:24 BP 144/85 H 11/16/24 06:24 Pulse Ox 99 11/16/24 06:24 O2 Del Method Room Air 11/16/24 06:24 BMI result Body Mass Index 34.5 Appearance: Alert. Oriented X3. No acute distress. Eyes: PERRLA, No Nystagmus ENT: Pharynx normal. Oral Mucosa moist Neck: Normal inspection. Neck supple. CVS: Normal heart rate and rhythm. Pulses normal. Respiratory: No respiratory distress. Equal air entry bilateral, no wheezing/rales/rhonchi Abdomen: Soft and nontender. Bowel sounds are present, no mass palpable, no CVA tenderness Skin: Skin warm and dry. Normal skin color. Normal skin turgor. Extremities: No lower extremity edema. No calf tenderness Neuro: Oriented X 3. No motor deficit. No sensory deficit.No cerebellar signs , cranial nerves II-XII intact Medications Administered Discontinued Medications Generic Name Dose Route Start Last Admin Trade Name Freq PRN Reason Stop Dose Admin Aspirin 162 mg 11/16/24 05:59 11/16/24 06:18 Aspirin Enteric Coated 81 Mg Tablet.Dr HINDS 11/16/24 06:00 162 mg ONCE ONE Administration Nitroglycerin 0.5 inch 11/16/24 05:59 11/16/24 06:17 Nitroglycerin 2 % Oint 1 Gm Packet TRANSDERMA 11/16/24 06:00 0.5 inch ONCE ONE Administration Medical Decision Making Medical Decision Making MDM Narrative: Patient has significant history of coronary artery disease status post stent placement comes here for sudden onset of chest pain mid chest less severe than last time and she had a [place] EKG without any ischemic changes 1st set of troponin negative patient's aspirin and Plavix nitro paste was placed will repeat troponin in [address] Avila to follow for disposition likely admission Differential Diagnosis Differential Diagnoses: The differential diagnosis associated with the presentation includes ACS/unstable angina/non STEMI Admission/Observation Consideration of admission/observation: Escalation of care including admission/observation considered Lab Data MDM Lab Attestation statement: I reviewed the patient's lab results. 11/16/24 06:13 11/16/24 06:13 Labs: Lab Results 11/16/24 Range/Units 06:13 WBC 8.7 (4.8-10.8) X10*3/uL RBC 4.21 (4.20-5.50) X10*6/uL Hgb 12.7 (12.0-16.0) g/dl Hct 38.8 (37.0-47.0) % MCV 92.2 (80.0-98.0) fL MCH 30.2 (27.0-33.0) pg MCHC 32.7 (31.0-35.0) g/dl RDW 12.0 (11.0-16.0) % Plt Count 287 (160-400) X10*3/uL MPV 10.6 (9.4-12.3) fL Immature Gran % (Auto) 0.3 (0.0-0.4) % Neut % (Auto) 54.2 (45-73) % Lymph % (Auto) 24.4 (20-40) % Rhea % (Auto) 11.0 (2-11) % Eos % (Auto) 9.5 H (0-4) % Baso % (Auto) 0.6 (0-2) % Lymph # (Auto) 2.1 (1.2-4.9) X10*3/uL Rhea # (Auto) 1.0 (0.1-1.2) X10*3/uL Eos # (Auto) 0.8 H (0.0-0.4) X10*3/uL Baso # (Auto) 0.1 (0.0-0.2) X10*3/uL Abs Immat Gran (auto) 0.03 (0.00-0.03) X10*3/uL Absolute Neuts (auto) 4.7 (2.0-8.3) x10*3/uL Absolute Nucleated RBC 0.000 (0.0-0.012) X10*3/uL Nucleated RBC % (auto) 0.0 (0.0-0.2) /100WBC PT 11.3 (10.9-12.4) SEC INR 1.0 (0.9-1.1) APTT 27.8 (26.0-36.8) SEC Sodium 142 (135-145) mmol/L Potassium 4.5 (3.3-5.1) mmol/L Chloride 105 (96-108) mmol/L Carbon Dioxide 25 (22-29) mmol/L Anion Gap 17 (12-20) BUN 12 (9-16) mg/dL Creatinine 0.70 (0.5-1.4) mg/dL Estim Creat Clear Calc 89.0 Estimated GFR > 60 Random Glucose 105 (60-115) mg/dL Calcium 8.9 (8.4-10.2) mg/dL Total Bilirubin 0.5 (0.0-1.0) mg/dL AST 36 H (5-31) U/L ALT 22 (0-31) U/L Alkaline Phosphatase 90 (39-117) U/L Troponin I High Sens < 2.7 (<3.5-17.0) ng/L Total Protein 7.1 (6.5-8.0) g/dL Albumin 4.1 (3.5-5.0) g/dL Lipase 31 (8-78) U/L Independent Interpretation I performed an independent interpretation of an: EKG Interpretation: Normal sinus rhythm heart rate 78 beats per minute normal interval normal axis no acute STT wave changes no acute ischemia Radiology Impression Discussion of test interpretation with radiology: I have reviewed the radiologist's reading. Radiologist Impression: NAD Discharge Plan Discharge Clinical Impression: ACS (acute coronary syndrome) Patient Disposition: Still a Patient Prescriptions: No Action amlodipine 10 mg tablet 10 mg PO DAILY Qty: 90 3RF aspirin 81 mg tablet,delayed release (DR/EC) 81 mg PO DAILY Qty: 90 3RF atorvastatin 80 mg tablet 80 mg PO DAILY Qty: 90 3RF clopidogrel 75 mg tablet 75 mg PO DAILY Qty: 90 3RF metoprolol succinate [Toprol XL] 25 mg tablet extended release 24 hr 25 mg PO DAILY Qty: 90 3RF losartan 25 mg tablet 25 mg PO DAILY Qty: 90 3RF acetaminophen 325 mg tablet 975 mg PO TID PRN (Reason: pain) therapeutic multivitamin Tablet 1 tab PO DAILY Print Language: Ariel
[2024-11-16] MEDS: Nitroglycerin 2 % Oint 1 GM Packet 0.5 INCH TRANSDERMA (06:17)
[2024-11-16 06:18] LABS: MANUAL DIFF FLAG NO
[2024-11-16] MEDS: Aspirin Enteric Coated 81 MG TABLET.DR 162 MG PO (06:18)
[2024-11-16 06:19] LABS: Basophils Absolute Auto 0.1 X10*3/uL (0.0-0.2); Basophils Percent Auto 0.6 % (0-2); Eosinophils Absolute Auto 0.8 X10*3/uL (0.0-0.4); Eosinophils Percent Auto 9.5 % (0-4); Hematocrit 38.8 % (37.0-47.0); Hemoglobin 12.7 g/dl (12.0-16.0); Imm Gran Abs Auto 0.03 X10*3/uL (0.00-0.03); Imm Gran Pct Auto 0.3 % (0.0-0.4); Lymphocytes Absolute Auto 2.1 X10*3/uL (1.2-4.9); Lymphocytes Percent Auto 24.4 % (20-40); Mean Corpuscular HGB Conc 32.7 g/dl (31.0-35.0); Mean Corpuscular Hemoglobin 30.2 pg (27.0-33.0); Mean Corpuscular Volume 92.2 fL (80.0-98.0); Mean Platelet Volume 10.6 fL (9.4-12.3); Neutrophils Absolute Auto 4.7 x10*3/uL (2.0-8.3); Neutrophils Percent Auto 54.2 % (45-73); Platelet Count 287 X10*3/uL (160-400); Red Blood Count 4.21 X10*6/uL (4.20-5.50); White Blood Count 8.7 X10*3/uL (4.8-10.8)
[2024-11-16 06:24] LABS: Prothrombin Time 11.3 SEC (10.9-12.4)
[2024-11-16 06:27] LABS: Partial Thromboplastin Time 27.8 SEC (26.0-36.8)
--- OUTSIDE RECORDS SUMMARY | 2024-11-16 06:31 | XMS_ITS | Patient Health Record ---
[facility] [place] Address [address] [place] [address] Care Team Providers Care Film Critic Name Role Phone Germania Ruffin Primary Care Provider Kelvin Sullivan Unavailable [phone] Allergies Allergen (clinical drug ingredient) Drug/Non Drug [...] Insured Coverage Start Date Coverage End Date [facility] [address] [place] [address] [id number] Brittani Mello Self - patient is the insured Medical (General) History Medical History History ICD Code asthma Back,Hip,and Knee pain Measles Mumps Chicken pox osteoarthritis Varicose veins Bunion Plantar fasciitis Surgical History Surgery Date(Month/Year) section 1993, 1996 appendectomy 2007
[2024-11-16 06:40] LABS: Alanine Aminotransferase 22 U/L (0-31); Albumin Level 4.1 g/dL (3.5-5.0); Alkaline Phosphatase 90 U/L (39-117); Anion Gap 17 (12-20); Aspartate Amino Transferase 36 U/L (5-31); Bilirubin Total 0.5 mg/dL (0.0-1.0); Blood Urea Nitrogen 12 mg/dL (9-16); Calcium 8.9 mg/dL (8.4-10.2); Carbon Dioxide 25 mmol/L (22-29); Chloride 105 mmol/L (96-108); Estimated Glomerular Filt Rate > 60; Glucose Random 105 mg/dL (60-115); Lipase 31 U/L (8-78); Potassium 4.5 mmol/L (3.3-5.1); Sodium 142 mmol/L (135-145); Total Protein 7.1 g/dL (6.5-8.0); Troponin-I High Sensitivity < 2.7 ng/L (<3.5-17.0)
[2024-11-16 08:41] LABS: Troponin-I High Sensitivity < 2.7 ng/L (<3.5-17.0)
--- NOTE | 2024-11-16 10:24 | P.CONCA_ITS ---
History of Present Illness History of Present Illness Date of Service: 11/16/24 Chief complaint: Dizziness Narrative: [age] year female presenting for dizziness and lightheadedness. She recently started using Ozempic for weight loss. She is saying that she was doing morning prayer when she stood up and started feeling very dizzy and lightheaded. She felt she has been a blackout and sat down. She said subsequently she laid down and felt better but when she stood up again she was feeling lightheaded and came to the emergency department. She did not complain of any chest discomfort or pain in the chest to me. She has known history of coronary disease with previous circumflex PCI. She had diffuse LAD stenosis at that time which was medically managed. Denying any fevers chills or any other symptoms. [facility] Past Medical History Medical History Asthma Family History Family History Brother Heart attack Sister Stented coronary artery Surgical History Surgical History History of appendectomy History of 2 sections History of total right knee replacement History of heart artery stent Social History Social History Housing: Condominium Alcohol intake: never Patient Tobacco Use Status: Never used Tobacco Smoked in Last 30 Days: No e-Cigarette/Vaping Use: Never Used Second Hand Smoke Exposure: No Use of substances other than those prescribed or required for medical reasons: No Advance Directives: No Advance Directives Information Provided: Yes Patient : No service: No Current occupational status: unemployed Cognitive needs: No Hearing needs: No Vision needs: No Meds Allergies Allergy/AdvReac Type Severity Reaction Status Date / Time latex Allergy hives, Verified 11/16/24 05:37 swelling Home Medications ?Medication ?Instructions ?Recorded ?Confirmed ?Last Taken ?Type acetaminophen 325 mg tablet 975 mg PO TID PRN pain 10/14/24 11/04/24 Unknown History therapeutic multivitamin 1 tab PO DAILY 10/14/24 11/04/24 Unknown History Physical Exam 2 Vital Signs: Vital Signs: Last Vital Signs Temp 98.0 F 11/16/24 08:00 Pulse 115 H 11/16/24 09:01 Resp 14 11/16/24 08:00 BP 105/73 11/16/24 09:01 Pulse Ox 98 11/16/24 08:00 O2 Del Method Room Air 11/16/24 08:00 BMI result Body Mass Index 34.5 GENERAL APPEARANCE: in no acute distress, pleasant. NECK: no carotid bruit, no jugular venous distention. SKIN: no suspicious lesions, warm and dry. HEART: no murmurs, regular rate and rhythm. Tachycardic. LUNGS: clear to auscultation bilaterally. ABDOMEN: soft, nontender. EXTREMITIES: no edema. PERIPHERAL PULSES: equal. NEUROLOGIC: No gross deficits, AAO X 3 Objective Labs and Meds 11/16/24 06:13 11/16/24 06:13 Lab results: Laboratory Results - last 24 hr 11/16/24 11/16/24 06:13 08:14 WBC 8.7 RBC 4.21 Hgb 12.7 Hct 38.8 MCV 92.2 MCH 30.2 MCHC 32.7 RDW 12.0 Plt Count 287 MPV 10.6 Immature Gran % (Auto) 0.3 Neut % (Auto) 54.2 Lymph % (Auto) 24.4 [place] % (Auto) 11.0 Eos % (Auto) 9.5 H Baso % (Auto) 0.6 Lymph # (Auto) 2.1 [place] # (Auto) 1.0 Eos # (Auto) 0.8 H Baso # (Auto) 0.1 Abs Immat Gran (auto) 0.03 Absolute Neuts (auto) 4.7 Absolute Nucleated RBC 0.000 Nucleated RBC % (auto) 0.0 PT 11.3 INR 1.0 APTT 27.8 Sodium 142 Potassium 4.5 Chloride 105 Carbon Dioxide 25 Anion Gap 17 BUN 12 Creatinine 0.70 Estim Creat Clear Calc 89.0 Estimated GFR > 60 Random Glucose 105 Calcium 8.9 Total Bilirubin 0.5 AST 36 H ALT 22 Alkaline Phosphatase 90 Troponin I High Sens < 2.7 < 2.7 Total Protein 7.1 Albumin 4.1 Lipase 31 Assessment and Plan (1) Dizziness: Status: Acute Plan Pleasant 63 year female presenting for dizziness and lightheadedness after starting Ozempic recently. She is denying any chest discomfort. Her main complaint is lightheadedness when she stands up. Check orthostatic vital signs. If orthostatics and she will need IV fluids. We may have to adjust hypertensive medications in that case and I will start by stopping amlodipine. EKG has no dynamic changes. Biomarkers are negative. She has no chest discomfort. Highly unlikely to be ACS currently. Thank you for allowing me to participate in the care of your patient. Please feel free to contact me if you have any questions. Procedures Date of Service Date of Service: 11/16/24
[2024-11-16] MEDS: 0.9 % Sodium Chloride 1,000 ML 999 ML IV (12:18)
== END 2024-11-16 15:37 | disposition home or self-care (01) ==
PROVIDERS: Internal Medicine; Emergency Provider Emergency Medicine Emergency Medical Services
DX: I24.9 Acute ischemic heart disease, unspecified (principal); R42 Dizziness and giddiness; R07.89 Other chest pain; R11.0 Nausea; Z79.899 Other long term (current) drug therapy
CPT/HCPCS: 36415; 71045; 80053; 83690; 84484; 85025; 85610; 85730; 93005; 96360; 99284; 99285

== ENCOUNTER → 2024-11-16 05:50 | Outpatient (BNV) | payer OTHER, SELFPAY | PROVIDERS: Emergency Provider Internal Medicine; Visit Provider Radiology Diagnostic Radiology | DX: R07.9 Chest pain, unspecified (principal) | CPT/HCPCS: 71045 ==

== ENCOUNTER → 2024-11-16 06:20 | Outpatient (BNV) | payer OTHER, SELFPAY | PROVIDERS: Emergency Provider Internal Medicine; Visit Provider Internal Medicine Cardiovascular Disease | DX: R42 Dizziness and giddiness (principal) | CPT/HCPCS: 93010; 99283 ==

== ENCOUNTER 2024-11-18 14:47 | Outpatient (AMB) | payer OTHER, SELFPAY ==
--- NOTE | 2024-11-18 14:58 | A.OFFVIS_ITS ---
Intake Visit Reasons: left knee pain Intake Note: Brittani is a 63 year old female who presents with complaints of progressively worsening left knee pain. The patient did undergo right total knee replacement surgery in 2022 at [facility]. She reports minimal discomfort in her right knee. She describes her left knee pain as sharp and severe in nature. Her left knee pain has gotten worse over the last few years in spite of continued non operative treatments. She has tried physical therapy which aggravated her pain. She has also tried Tylenol and anti-inflammatory medicines which gave her minimal relief. She has difficulty walking even short distances because of her pain. At this point her left knee pain is interfering with her activities of daily living and her ability to sleep well through the night. Allergies latex Allergy (Verified 11/18/24 15:00) hives, swelling Medication List - Last Reconciled 11/18/24 by Miguel Dickson MD acetaminophen 975 mg PO TID PRN amlodipine 10 mg PO DAILY aspirin 81 mg PO DAILY atorvastatin 80 mg PO DAILY clopidogrel 75 mg PO DAILY losartan 25 mg PO DAILY metoprolol succinate ER (Toprol XL) 25 mg PO DAILY therapeutic multivitamin 1 tab PO DAILY [facility] Medical History Asthma Surgical History History of appendectomy History of 2 sections History of total right knee replacement History of heart artery stent Family History Brother Heart attack Sister Stented coronary artery Social History Housing: Condominium Alcohol intake: never Patient Tobacco Use Status: Never used Tobacco e-Cigarette/Vaping Use: Never Used Second Hand Smoke Exposure: No service: No Current occupational status: unemployed Cognitive needs: No Hearing needs: No Vision needs: No Physical Exam Const Other: Well-nourished well-developed very friendly female awake alert and oriented x3 in no acute distress Extrem Other: Bilateral lower extremity examination shows good capillary refill, no skin lesions noted, normal sensation light touch Left knee examination shows a minimal effusion, palpable crepitus with range of motion, pain with range of motion, range motion from -3 degrees to 115 degrees, no instability Results Reviewed Results Reviewed: X-rays of the patient's left knee show severe joint space narrowing with grade 4 end-stage degenerative joint disease, osteophyte formation, subchondral sclerosis, no acute bony abnormalities Assessment & Plan Assessment & Plan (1) Osteoarthritis of left knee: Code(s): M17.12 - Unilateral primary osteoarthritis, left knee Category: Medical Plan Mrs. Mello presents with progressively worsening left knee pain due to end-stage degenerative joint disease. I had a lengthy discussion with the patient regarding the treatment options. At this point she has failed continued non operative treatments. The risks and benefits of left total knee replacement surgery were discussed at length with the patient. The patient wishes to proceed with surgery. She will be scheduled for next available date. I will s ee her back 1 week prior to her surgery to answer any final questions that she might have. Feel free to call me at any time should questions regarding her orthopedic management arise. I spent 21 minutes in reviewing the patient's records and imaging studies, seeing the patient and documenting in the medical record. Coding Level of Care Code Est Pt Level 3 (64380) Complex EM visit Add On G2211 Diagnoses Osteoarthritis of left knee M17.12
--- OUTSIDE RECORDS SUMMARY | 2024-11-18 15:57 | XMS_ITS | Patient Health Record ---
Author Organization [facility] [place] Address [address] [place] [address] Care Team Providers Care Hospice Volunteer Coordinator Name Role Phone Germania Ruffin Primary Care Provider Kelvin Sullivan Unavailable [phone] Allergies Allergen (clinical drug ingredient) Drug/Non Drug [...] Insured Coverage Start Date Coverage End Date [facility] [address] [place] [address] [id number] Brittani Mello Self - patient is the insured Medical (General) History Medical History History ICD Code asthma Back,Hip,and Knee pain Measles Mumps Chicken pox osteoarthritis Varicose veins Bunion Plantar fasciitis Surgical History Surgery Date(Month/Year) section 1993, 1996 appendectomy 2007
== END 2024-11-18 15:09 | disposition home or self-care (01) ==
LOC: HO.HOS 14:48
PROVIDERS: PCP Family Medicine; Visit Provider Orthopaedic Surgery
DX: M17.12 Unilateral primary osteoarthritis, left knee (principal)
CPT/HCPCS: 99213

== ENCOUNTER → 2024-11-18 14:47 | Outpatient (BNVA) | payer OTHER, SELFPAY | PROVIDERS: PCP Family Medicine; Visit Provider Orthopaedic Surgery ==

== ENCOUNTER 2024-12-03 06:30 | Outpatient (REF) | payer OTHER, SELFPAY ==
--- NOTE | ~2024-12-03 | FL_ITS ---
EXAMINATION: FL GUIDANCE ONLY HISTORY: M54.16 - Radiculopathy, lumbar region COMPARISON: None available. TECHNIQUE: Fluoroscopy time: 0.2 minutes. Cumulative Dose: 6.07 mGy. DAP: 0.0331 mGym2 Images: 3. FINDINGS: Fluoroscopic spot films of the lumbar spine demonstrate a needle in place. FL/FL guidance in treatment room IMPRESSION: Fluoroscopy during procedure. Please see procedure report for additional information. Electronically signed by: Pantera Rodriguez MD 12/03/2024 02:12 PM EDT
[2024-12-03 15:18] LABS: MANUAL DIFF FLAG NO
[2024-12-03 15:30] LABS: Basophils Absolute Auto 0.1 X10*3/uL (0.0-0.2); Basophils Percent Auto 0.7 % (0-2); Eosinophils Absolute Auto 0.9 X10*3/uL (0.0-0.4); Eosinophils Percent Auto 10.4 % (0-4); Hematocrit 39.1 % (37.0-47.0); Hemoglobin 12.7 g/dl (12.0-16.0); Imm Gran Abs Auto 0.03 X10*3/uL (0.00-0.03); Imm Gran Pct Auto 0.4 % (0.0-0.4); Mean Corpuscular HGB Conc 32.5 g/dl (31.0-35.0); Mean Corpuscular Hemoglobin 29.4 pg (27.0-33.0); Mean Corpuscular Volume 90.5 fL (80.0-98.0); Mean Platelet Volume 10.5 fL (9.4-12.3); Monocytes Absolute Auto 0.8 X10*3/uL (0.1-1.2); Monocytes Percent Auto 9.7 % (2-11); Neutrophils Absolute Auto 4.8 x10*3/uL (2.0-8.3); Neutrophils Percent Auto 55.8 % (45-73); Platelet Count 311 X10*3/uL (160-400); Red Blood Count 4.32 X10*6/uL (4.20-5.50); White Blood Count 8.6 X10*3/uL (4.8-10.8)
[2024-12-03 15:34] LABS: Estimated Average Glucose 114 mg/dL; Hemoglobin A1C 125.1956 umol/L; Hemoglobin A1c % 5.6 % (<6.0); Total Hemoglobin (HGBA1C) 3351.6455 umol/L
[2024-12-03 16:09] LABS: Anion Gap 13 (12-20)
[2024-12-03 16:13] LABS: Alanine Aminotransferase 19 U/L (0-31); Albumin Level 4.1 g/dL (3.5-5.0); Aspartate Amino Transferase 24 U/L (5-31); Bilirubin Total 0.6 mg/dL (0.0-1.0); Blood Urea Nitrogen 17 mg/dL (9-16); Calcium 9.2 mg/dL (8.4-10.2); Carbon Dioxide 26 mmol/L (22-29); Chloride 106 mmol/L (96-108); Estimated Glomerular Filt Rate > 60; Glucose Random 95 mg/dL (60-115); Potassium 4.4 mmol/L (3.3-5.1); Sodium 141 mmol/L (135-145); Total Protein 6.9 g/dL (6.5-8.0)
[2024-12-03 16:14] LABS: Alkaline Phosphatase 81 U/L (39-117)
[2024-12-03 16:21] LABS: TSH reflex Free T4 0.93 uIU/mL (0.32-4.0)
== END 2024-12-03 06:31 | disposition home or self-care (01) ==
LOC: CF 06:30
PROVIDERS: Internal Medicine Cardiovascular Disease; Visit Provider Internal Medicine
DX: M54.16 Radiculopathy, lumbar region (principal); Z01.818 Encounter for other preprocedural examination; R63.5 Abnormal weight gain; Z13.1 Encounter for screening for diabetes mellitus
CPT/HCPCS: 36415; 62323; 80053; 83036; 84443; 85025; J2003; J3301; Q9967

== ENCOUNTER 2024-12-03 13:35 | Outpatient (AMB) | payer OTHER, SELFPAY ==
--- NOTE | 2024-12-03 13:37 | MHC.OFFVIS ---
Vital Signs 12/03/24 13:40 12/03/24 14:03 BP 120/78 132/86 Blood Pressure Location Lt brachial Lt brachial Position Sitting Sitting Respiration 16 16 Pulse 73 86 Pulse Source Pulse Oximeter Pulse Oximeter Pulse Oximetry (%) 98 97 Oxygen Delivery Method Room Air Room Air Intake Visit Reasons: Right L4-L5 interlaminar ROBERT Maintenance Mill[place] Required: No Maintenance Millwright Name: Dr. Eisenberg speaks Macedonian Allergies latex Allergy (Verified 12/03/24 13:40) hives, swelling Medication List - Last Reconciled 12/03/24 by Cara Mcgovern LPN acetaminophen 975 mg PO TID PRN amlodipine 10 mg PO DAILY aspirin 81 mg PO DAILY atorvastatin 80 mg PO DAILY clopidogrel 75 mg PO DAILY losartan 25 mg PO DAILY metoprolol succinate ER (Toprol XL) 25 mg PO DAILY therapeutic multivitamin 1 tab PO DAILY HPI HPI Right L4-L5 interlaminar ROBERT: Details: Patient presents for scheduled procedure. Denies any recent cough, cold, infection, fever or other significant changes in medical history since last office visit. [facility] Medical History Asthma Surgical History History of appendectomy History of 2 sections History of total right knee replacement History of heart artery stent Family History Brother Heart attack Sister Stented coronary artery Social History Housing: Condominium Alcohol intake: never Patient Tobacco Use Status: Never used Tobacco e-Cigarette/Vaping Use: Never Used Second Hand Smoke Exposure: No service: No Current occupational status: unemployed Cognitive needs: No Hearing needs: No Vision needs: No Physical Exam Vital Signs: Last Vital Signs Pulse 86 12/03/24 14:03 Resp 16 12/03/24 14:03 BP 132/86 12/03/24 14:03 Pulse Ox 97 12/03/24 14:03 Oxygen Delivery Method Room Air 12/03/24 14:03 Office Procedures AMB Joint Injection/Aspiration Joint Injection/Aspiration Details: Interlaminar epidural steroid injection, L4-5 right parasaggital After obtaining written consent, pre-procedure blood pressure and heart rate were stable and recorded in the nursing record. The patient was placed in the prone position. The lumbar area was widely prepped with chloraprep and draped in sterile fashion. Fluoroscopic guidance was used to identify the desired interlaminar space and for needle placement. Subcutaneous 0.5% lidocaine was used to anesthetize the skin overlying the target. A 20-gauge Cisneros needle was advanced to the epidural space using loss of resistance to contrast technique under fluoroscopic AP and contralateral oblique views. There was no evidence of heme or CSF and no paresthesias were elicited with needle placement. Confirmation of epidural needle placement was performed with 1cc of omnipaque 180. Next 3 ml 0.5% lidocaine mixed with 80 mg triamcinilone was administered epidurally with no pain elicited on injection. The needle tract tubing was then cleared with 1 ml of 0.5% lidocaine. The needle was removed, skin cleansed and a sterile bandage was applied. The patient tolerated the procedure well and no complications were encountered. Following the procedure the patient's vital signs were stable. The patient was discharged home in good condition with post-procedural instructions. Time Out: Immediately prior to the procedure, the following was verbally confirmed that there is a signed consent form and that the correct patient, planned procedure, site and side are consistent with documentation and that necessary equipment and/or blood products are available prior to the start of the case. Complications: none EBL: <2 cc Coding 39802 - Caudal/Lumbar Epidural/Interlaminar with fluoroscopy Procedure code (CPT) selection complete Assessment & Plan Assessment & Plan (1) Lumbar radiculopathy: Code(s): M54.16 - Radiculopathy, lumbar region Category: Medical Plan Patient is status post right parasagittal L4-5 interlaminar ROBERT. Patient tolerated procedure well and was discharged home in stable condition with discharge instructions. All questions were answered. We will follow-up via telephone or in clinic to assess response to therapy. A follow-up appointment was made during today's visit. Orders: Orders FL guidance in treatment room 12/03/24 Aleena Kilpatrick APRN, JEMAL M54.16 - Radiculopathy, lumbar region AMB Joint Injection/Aspiration 12/03/24 Darius Eisenberg MD M54.16 - Radiculopathy, lumbar region Coding Level of Care Code Procedure Only Diagnoses Lumbar radiculopathy M54.16 CPT Codes Coding - Joint 11: 16069 - Caudal/Lumbar Epidural/Interlaminar with fluoroscopy ([id number])
[2024-12-03 13:40] VITALS: BP 120/78; PULSE 73; RESP 16; O2SAT 98
[2024-12-03 14:03] VITALS: BP 132/86; PULSE 86; RESP 16; O2SAT 97
--- OUTSIDE RECORDS SUMMARY | 2024-12-03 14:13 | XMS_ITS | Patient Health Record ---
[facility] [place] Address [address] [place] [address] Care Team Providers Care Tong Carrier Name Role Phone Germania Ruffin Primary Care Provider Kelvin Sullivan Unavailable [phone] Allergies Allergen (clinical drug ingredient) Drug/Non Drug [...] Insured Coverage Start Date Coverage End Date [facility] [address] [place] [address] [id number] Brittani Mello Self - patient is the insured Medical (General) History Medical History History ICD Code asthma Back,Hip,and Knee pain Measles Mumps Chicken pox osteoarthritis Varicose veins Bunion Plantar fasciitis Surgical History Surgery Date(Month/Year) section 1993, 1996 appendectomy 2007
== END 2024-12-03 14:04 | disposition home or self-care (01) ==
LOC: HO.PMCPRC 13:35
PROVIDERS: Visit Provider Internal Medicine
DX: M54.16 Radiculopathy, lumbar region (principal)
CPT/HCPCS: 62323

== ENCOUNTER 2024-12-16 14:26 | Outpatient (AMB) | payer OTHER, SELFPAY ==
--- NOTE | 2024-12-16 14:44 | A.OFFPC_ITS ---
Vital Signs 12/16/24 14:45 Height 5 ft 3 in Weight 188 lb 2 oz BMI 33.3 BP 130/60 Blood Pressure Location Lt brachial Position Sitting Pulse 70 Pulse Source Pulse Oximeter Temp 97.1 F Temp Source Temporal Artery Scan Pulse Oximetry (%) 96 Oxygen Delivery Method Room Air Intake Visit Reasons: annual exam/ f/u weight loss Intake Note: Patient is here today for a physical. Traffic Personnel Supervisor Required: No Guard Immigration: Not Required per policy Accompanied by: Self / Same As Patient Allergies latex Allergy (Verified 12/16/24 14:54) hives, swelling Medication List - Last Reconciled 12/16/24 by Tia Thomas PA-C acetaminophen 975 mg PO TID PRN amlodipine 10 mg PO DAILY aspirin 81 mg PO DAILY atorvastatin 80 mg PO DAILY clopidogrel 75 mg PO DAILY losartan 25 mg PO DAILY metoprolol succinate ER (Toprol XL) 25 mg PO DAILY polyethylene glycol 3350 (Miralax) 17 grams PO DAILY semaglutide (weight loss) (Wegovy) 0.5 mg subcut QWEEK therapeutic multivitamin 1 tab PO DAILY Tobacco use date assessed: 12/16/24 Dental Screening Dental Screen Date: 10/14/24 HPI annual exam/ f/u weight loss HPI Details 64-year-old female with past medical his tory of coronary artery disease, obesity, lumbar spondylosis with radiculopathy and osteoarthritis of left knee last seen 09/2024 coming in for annual exam. In review of the notes, patient has been following with pain management last seen 11/2024 patient tolerated back injection well and discharged home to follow up as needed. Following with orthopedics for left knee osteoarthritis advised to undergo knee replacement. Patient was seen in [facility] [place]24 workup was negative amlodipine was discontinued and advised to increase fluid intake patient was discharged home. Presenting for her annual wellness examination, with a history of dizziness leading to an emergency room visit where acid-base imbalance was suspected. She reports controlled type 2 diabetes, hyperlipidemia treated with atorvastatin, and coronary artery disease. The patient has experienced back pain with slight improvement following injection, and persistent knee pain post-total knee replacement surgery, with exacerbation during prolonged standing or walking. She has initiated Ozempic injections for weight management with resulting nausea.The patient reports a 7-pound weight loss over the past six weeks and has scheduled preoperative evaluations in anticipation of knee surgery in March. mammogram: is due - referral placed colonoscopy: not due at this time 2019 repeat in 10 years vaccines: UTD [facility] Medical History Asthma Surgical History History of appendectomy History of 2 sections History of total right knee replacement History of heart artery stent Family History Brother Heart attack Sister Stented coronary artery Social History Housing: Condominium Alcohol intake: never Patient Tobacco Use Status: Never used Tobacco e-Cigarette/Vaping Use: Never Used Second Hand Smoke Exposure: No service: No Current occupational status: unemployed Cognitive needs: No Hearing needs: No Vision needs: No Questionnaire Thrive Questionnaire Date Thrive assessed: 10/14/24 I am a: Patient What is your living situation today?: I have a steady place to live Within the past 12 months, did the food you bought not last and you didn't have the money to get more?: Often true Within the past 12 months, did you worry whether your food would run out before you got money to buy more?: Sometimes True Do you have trouble paying for medicines?: Yes Do you have trouble getting transportation to medical appointments?: Yes Do you have trouble paying your heating and electricity bill?: No Do you have trouble taking care of your child, family member or friend?: I choose not to answer this question Do you have trouble with day-to-day activities such as bathing, preparing meals, shopping, managing finances, etc.?: I choose not to answer this question Are you currently unemployed and looking for a job?: No Are you interested in more education?: No Please select the resources that you would like help with: None Currently or been in a relationship where the following occur: No concerns reported THRIVE Score: 3 BARBARA-7 AMB Questionnaire BARBARA-7 Date BARBARA - 7 assessed: 10/14/24 Source: Developed by Drs. Pantera Zuniga, Keysha Brown, Aurelio Hernández and colleagues, with an educational moshe from [employer]. Review of Systems Const Denies body aches, Denies fatigue, Denies fever(s) and Denies weakness Eyes Reports no additional complaints and Denies change in vision ENT Denies dysphagia, Denies dizziness, Denies facial pain, Denies nasal congestion and Denies odynophagia Card Denies chest pain, Denies syncope, Denies leg edema, Denies lightheadedness and Denies dyspnea Resp Denies cough and Denies dyspnea GI Denies abdominal pain, Denies constipation, Denies dysphagia, Denies dyspepsia, Denies diarrhea, Denies nausea, Denies odynophagia and Denies vomiting Denies urinary frequency, Denies dysuria, Denies urinary hesitancy and Denies urinary urgency Musc Denies back pain and Denies myalgias Skin/Breast Reports system reviewed and no additional complaints, except as documented Neuro Denies dizziness, Denies syncope and Denies weakness Psych Reports no additional complaints Endo Denies fatigue Physical exam (Primary Care) Vital Signs: Last Vital Signs Temp 97.1 F 12/16/24 14:45 Pulse 70 12/16/24 14:45 BP 130/60 12/16/24 14:45 Pulse Ox 96 12/16/24 14:45 Oxygen Delivery Method Room Air 12/16/24 14:45 BMI result Body Mass Index 33.3 Tobacco/Smoking Status: Tobacco use Status Tobacco use date assessed 12/16/24 12/16/24 14:49 Patient Tobacco Use Status Never used Tobacco 12/16/24 14:49 e-Cigarette/Vaping Use Never Used 12/16/24 14:49 Thrive Assessment: Date of Thrive Assessment Date Thrive assessed 10/14/24 12/16/24 14:49 Currently or been in a relationship where the following occur: No concerns reported Const General: cooperative, healthy appearing, comfortable and no acute distress Orientation/consciousness: patient oriented x3 HENMT Head: Yes normocephalic Ears: hearing grossly normal bilaterally, external ears normal, TM's normal bilaterally and EAC's normal General nose exam: Normal external nose present Face and sinus: Yes normal facial exam and Yes sinuses nontender Mouth: Normal oral and palatal mucosa present and tongue normal Throat: Yes posterior oropharynx normal Eyes General: appearance normal, both eyes and all related structures Conjunctivae: conjunctivae normal Pupils: Equal, round and reactive pupils present EOM: EOMs intact bilaterally and No Nystagmus present Neck Neck: Yes normal visual inspection, Yes full ROM and Yes no lymphadenopathy Chest Chest palpation & inspection: normal inspection of the chest Resp Effort & Inspection: normal respiratory effort Auscultation: clear to auscultation bilaterally, no crackles, no rales, no rhonchi, no wheezes and breath sounds present Cardio Rate: regular rate Rhythm: regular rhythm Peripheral pulses: radial pulses present and dorsalis pedis present GI Inspection: Yes normal to inspection and No Abdominal wall edema Palpation (GI): Soft to palpation, not firm and nontender Auscultation: normal bowel sounds Rectal Exam - Female: deferred General: Yes no CVA tenderness Back/Spine/Pelvis Back: no CVA tenderness Skin General skin exam: no rashes or lesions noted Neuro General: patient oriented x3 Cranial nerves: Yes Equal, round and reactive pupils present, Yes Midline tongue present, Yes Ability to bilaterally elevate shoulders present and No Nystagmus present Gait exam (Neuro): Normal gait present Extrem General: Yes normal to inspection, Yes full ROM, No no pedal edema and No edema Psych Speech and movement: Normal speech and movement present Affect: normal affect Insight: Good insight present (Psych) Judgement: Good judgement present (Psych) Coding Level of Care Code Est Pt Prev Care 40-64y(09572) Diagnoses Annual physical exam Z00.00 Severe obesity (BMI 35.0-35.9 with comorbidity) E66.01; Z68.35 Coronary artery disease I25.10 Osteoarthritis of left knee M17.12 Lumbar spondylosis M47.816 Right knee pain M25.561 Assessment & Plan Assessment & Plan (1) Annual physical exam: Code(s): Z00.00 - Encounter for general adult medical examination without abnormal findings Category: Medical Plan: Patient is up-to-date on all recommended routine screenings and vaccinations for her age. She will be due for mammogram and referral was placed today. Blood work is up-to-date and has been reviewed with the patient today (2) Severe obesity (BMI 35.0-35.9 with comorbidity): Code(s): E66.01 - Morbid (severe) obesity due to excess calories; Z68.35 - Body mass index [BMI] 35.0-35.9, adult Category: Medical Plan: Healthy diet and regular exercise is encouraged. Continue on Ozempic (3) Coronary artery disease: Code(s): I25.10 - Atherosclerotic heart disease of elem coronary artery without angina pectoris Category: Medical Plan: Advised good control of blood sugars, cholesterol and blood pressure. All of which are well managed at this time. Continue on atorvastatin 80 mg and aspirin 81. Continue to follow with Cardiology (4) Osteoarthritis of left knee: Code(s): M17.12 - Unilateral primary osteoarthritis, left knee Category: Medical Plan: Patient has been seeing Dr. Garcia through [facility] [place] his scheduled to have a total left knee replacement scheduled for March. She does have a preoperative visit scheduled with our office already (5) Lumbar spondylosis: Code(s): M47.816 - Spondylosis without myelopathy or radiculopathy, lumbar region Category: Medical Plan: Patient is currently following with pain management for GI patient is in the back does find she has mild relief after her most recent injection. (6) Right knee pain: Code(s): M25.561 - Pain in right knee Category: Medical Plan: Patient having right knee pain does have a history total knee replacement and states his pain is chronic. Advised to continue with Tylenol as needed for pain. Plan The patient will maintain hydration to manage dizziness and continue atorvastatin for hyperlipidemia, with cardiology consultation planned. Back and knee pain will be managed with potential imaging and injections, and the patient will remain on Ozempic, with dosage adjustments as tolerated. Preoperative evaluations for knee surgery are scheduled, and a mammogram is due this year. Diabetes management remains stable. This note was constructed using voice recognition software. While every effort has been made to ensure accuracy and education department registrar, still areas may have been included sometimes these areas may affect the content or meeting of the given symptoms. Total time spent caring for the patient today was 30 minutes. This includes time spent before the visit reviewing the chart, time spent during the visit, and time spent after the visit and documentation. Patient was informed and verbally consented to the use of an ambient scribe for clinic note documentation during this visit. Orders: Orders MM tomosynthesis screening BI 12/16/24 Z12.31 - Encounter for screening mammogram for malignant neoplasm of breast Complete Blood Count Auto Diff 12/16/24 I25.10 - Atherosclerotic heart disease of elem coronary artery without angina pectoris, Z00.00 - Encounter for general adult medical examination without abnormal findings Comprehensive Met. Panel 12/16/24 I25.10 - Atherosclerotic heart disease of elem coronary artery without angina pectoris, Z00.00 - Encounter for general adult medical examination without abnormal findings
[2024-12-16 14:45] VITALS: BP 130/60; PULSE 70; TEMP 36.2; O2SAT 96; BMI 33.3
--- OUTSIDE RECORDS SUMMARY | 2024-12-16 15:19 | XMS_ITS | Patient Health Record ---
[facility] [place] Address [address] [place] [address] Care Team Providers Care Maintenance Representative Name Role Phone Germania Ruffin Primary Care Provider Kelvin Sullivan Unavailable [phone] Allergies Allergen (clinical drug ingredient) Drug/Non Drug [...] Insured Coverage Start Date Coverage End Date [facility] [address] [place] [address] [phone] [id number] Brittani Mello Self - patient is the insured Medical (General) History Medical History History ICD Code asthma Back,Hip,and Knee pain Measles Mumps Chicken pox osteoarthritis Varicose veins Bunion Plantar fasciitis Surgical History Surgery Date(Month/Year) section 1993, 1996 appendectomy 2007
== END 2024-12-16 15:44 | disposition home or self-care (01) ==
LOC: HO.HMCH 14:27
PROVIDERS: PCP Family Medicine
DX: Z00.00 Encounter for general adult medical examination without abnormal findings (principal); E66.01 Morbid (severe) obesity due to excess calories; Z68.35 Body mass index [BMI] 35.0-35.9, adult; I25.10 Atherosclerotic heart disease of native coronary artery without angina pectoris; M17.12 Unilateral primary osteoarthritis, left knee; M47.816 Spondylosis without myelopathy or radiculopathy, lumbar region; M25.561 Pain in right knee

== ENCOUNTER → 2024-12-16 14:26 | Outpatient (BNVA) | payer OTHER, SELFPAY | PROVIDERS: PCP Family Medicine ==

== ENCOUNTER 2024-12-30 10:44 | Outpatient (AMB) | payer OTHER, SELFPAY ==
--- NOTE | 2024-12-30 10:51 | MHC.OFFVIS ---
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 Required: No Allergies latex Allergy (Verified 12/30/24 10:54) hives, swelling Medication List - Last Reconciled 12/30/24 by Cara Mcgovern LPN acetaminophen 975 mg PO TID PRN amlodipine 10 mg PO DAILY aspirin 81 mg PO DAILY atorvastatin 80 mg PO DAILY clopidogrel 75 mg PO DAILY losartan 25 mg PO DAILY metoprolol succinate ER (Toprol XL) 25 mg PO DAILY polyethylene glycol 3350 (Miralax) 17 grams PO DAILY semaglutide (weight loss) (Wegovy) 0.5 mg subcut QWEEK therapeutic multivitamin 1 tab PO DAILY HPI HPI s/p Right L4-L5 interlaminar ROBERT: Details: History of Present Illness The patient is a 64-year-old female presenting for a follow-up on chronic pain, particularly focusing on her right leg pain. The patient has been enduring severe pain for some time, described initially as excruciating. However, following an interlaminal arterial skirt injection, the patient experienced moderate relief ranging from 20% to 30%. She mentions an improvement in her pain symptoms following the intervention. Additional notes during the visit include the current management of itchiness, which has been less intense in recent times, and plans to address missing MRI images that are needed for further evaluation. Pain Description - Onset: Reported as initially excruciating - Quality and Character: Excruciating but improved post-treatment - Primary Location: Right leg - Exacerbating Factors: Not specified - Relieving Factors: Interlaminal arterial skirt injection produced 20-30% relief - Interference with Functions: No specific activities or functions mentioned Physical Exam Results - MRI images unavailable for examination; plans made to retrieve and review Pain Management - Affect: Not specifically discussed - Analgesia: Interlaminar ROBERT injection provided 20-30% relief - Adverse Effects: Not specifically discussed - Activities of Daily Living: Not specifically discussed - Aberrant Drug Related Behaviors: Not specifically discussed [facility] Medical History Asthma Surgical History History of appendectomy History of 2 sections History of total right knee replacement History of heart artery stent Family History Brother Heart attack Sister Stented coronary artery Social History Housing: Condominium Alcohol intake: never Patient Tobacco Use Status: Never used Tobacco e-Cigarette/Vaping Use: Never Used Second Hand Smoke Exposure: No service: No Current occupational status: unemployed Cognitive needs: No Hearing needs: No Vision needs: No Physical Exam Vital Signs: Last Vital Signs Pulse 85 12/30/24 10:53 Resp 16 12/30/24 10:53 BP 124/76 12/30/24 10:53 Pulse Ox 97 12/30/24 10:53 Oxygen Delivery Method Room Air 12/30/24 10:53 BMI result Body Mass Index 32.6 Assessment & Plan Assessment & Plan (1) Lumbar radiculopathy: Code(s): M54.16 - Radiculopathy, lumbar region Category: Medical (2) Lumbar spondylosis: Code(s): M47.816 - Spondylosis without myelopathy or radiculopathy, lumbar region Category: Medical Plan Plan - Retrieve and review MRI images for further evaluation. - Monitor itchiness symptoms and assess further management if needed. - Evaluate the efficacy of the current pain management and consider adjustment if necessary. Patient was informed and verbally consented to the use of an ambient scribe for clinic note documentation during this visit. Discussion Notes I discussed with the patient the current status of her pain management, particularly emphasizing the improvement noted following the interlaminar ROBERT injection. We reviewed the limitations in the present medical files as MRI images were believed to be misplaced and agreed on the need to retrieve these for a more comprehensive evaluation. The patient acknowledged the improvement in her pain level, as well as the decrease in itchiness, and understood the necessity for close monitoring. We examined the role of continuing the current management plan and the prospects of further interventions should the current relief not be sustained. Patient Instructions - Contact the office if the MRI images become available or for any significant changes in symptoms. - Monitor and report on any changes in itchiness. - Continue to follow the pain management plan as discussed. - Follow up as scheduled to reassess and plan further management. Coding Level of Care Code Est Pt Level 3 (78755) Diagnoses Lumbar radiculopathy M54.16 Lumbar spondylosis M47.816
[2024-12-30 10:53] VITALS: BP 124/76; PULSE 85; RESP 16; O2SAT 97; BMI 32.6
--- OUTSIDE RECORDS SUMMARY | 2024-12-30 12:13 | XMS_ITS | Patient Health Record ---
Author [facility] [place] Address [address] [place] [address] Care Team Providers Care Soil Engineer Name Role Phone Germania Ruffin Primary Care Provider Kelvin Sullivan Unavailable [phone] Allergies Allergen (clinical drug ingredient) Drug/Non Drug [...] Insured Coverage Start Date Coverage End Date [facility] [address] [place] [address] [id number] Brittani Mello Self - patient is the insured Medical (General) History Medical History History ICD Code asthma Back,Hip,and Knee pain Measles Mumps Chicken pox osteoarthritis Varicose veins Bunion Plantar fasciitis Surgical History Surgery Date(Month/Year) section 1993, 1996 appendectomy 2007
== END 2024-12-30 11:11 | disposition home or self-care (01) ==
LOC: HO.PMC 10:45
PROVIDERS: Visit Provider Internal Medicine
DX: M54.16 Radiculopathy, lumbar region (principal); M47.816 Spondylosis without myelopathy or radiculopathy, lumbar region
CPT/HCPCS: 99213

== ENCOUNTER 2025-02-17 11:41 | Outpatient (REF) | payer OTHER, SELFPAY | END 2025-02-17 11:42 | disposition home or self-care (01) | LOC: HO.LAB 11:41 | PROVIDERS: Absent Provider Physician Assistant; Visit Provider Internal Medicine Cardiovascular Disease | DX: Z01.810 Encounter for preprocedural cardiovascular examination (principal); I25.10 Atherosclerotic heart disease of native coronary artery without angina pectoris; M17.12 Unilateral primary osteoarthritis, left knee; Z95.5 Presence of coronary angioplasty implant and graft; Z96.651 Presence of right artificial knee joint; Z79.82 Long term (current) use of aspirin; Z79.899 Other long term (current) drug therapy | CPT/HCPCS: 93005 ==

== ENCOUNTER 2025-02-17 11:41 | Outpatient (AMB) | payer OTHER, SELFPAY ==
[2025-02-17 11:46] VITALS: BP 122/82; PULSE 77; BMI 32.8
--- NOTE | 2025-02-17 11:46 | MHC.OFFVIS ---
Vital Signs 02/17/25 11:46 Height 5 ft 3 in Weight 185 lb 3.013 oz BMI 32.8 BP 122/82 Blood Pressure Location Lt brachial Position Sitting Pulse 77 Intake Visit Reasons: 4mth f/up/ L TKA w/Dr. Dickson. pre-op Intake Note: pre-op clearance LTKA 04/19 with ekg feeling good Venetian Blind Installer Required: No Hand Embroiderer: Hand Embroiderer Present Accompanied by: Spouse Allergies latex Allergy (Verified 12/30/24 10:54) hives, swelling Medication List - Last Reconciled 02/17/25 by Peterson Crocker MD acetaminophen 975 mg PO TID PRN amlodipine 10 mg PO DAILY aspirin 81 mg PO DAILY atorvastatin 80 mg PO DAILY clopidogrel 75 mg PO DAILY losartan 25 mg PO DAILY metoprolol succinate ER (Toprol XL) 25 mg PO DAILY polyethylene glycol 3350 (Miralax) 17 grams PO DAILY semaglutide (Ozempic) 1 mg subcut QWEEK therapeutic multivitamin 1 tab PO DAILY walker Folding front wheeled walker HPI Comments Details: Pleasant 64-year-old lady from [place] who is here for follow-up. She has history of coronary disease and had presentation for acute coronary syndrome and circumflex PCI done by Dr. Ramirez recently. She is on dual antiplatelet therapy at this point. She also had diffuse LAD stenosis at that time which was decided to be medically managed. She has done well since then. She is on Toprol-XL amlodipine and losartan. Blood pressure is well controlled. Taking medications regularly. Denying any significant symptoms. She had right knee surgery and subsequently developed some back issues which she is still struggling with. 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 but since the knee surgery she was unable to stand for long hours and she has stopped working. She is asking whether she can have left knee surgery done. 09/30/2024: She is here for follow-up. Denying chest discomfort or shortness of breath. Main issue is arthritis in left knee as well as low back pain. She got a knee injection. She is following with pain management and was advised that lower back injection may help her but she is on Plavix. She is at this stage 10 months out of her primary event and can interrupt Plavix if required. 02/17/2025: Here for follow-up. She is planning to undergo left knee replacement in March 2025. She has been using semaglutide with some weight loss. Blood pressure well controlled. She has no exertional complaints currently. She is taking aspirin and Plavix. [facility] Medical History Asthma Surgical History History of appendectomy History of 2 sections History of total right knee replacement History of heart artery stent Family History Brother Heart attack Sister Stented coronary artery Social History Housing: Condominium Alcohol intake: never Patient Tobacco Use Status: Never used Tobacco e-Cigarette/Vaping Use: Never Used Second Hand Smoke Exposure: No service: No Current occupational status: unemployed Cognitive needs: No Hearing needs: No Vision needs: No Review of Systems Const Denies chills, Denies fatigue, Denies fever(s), Denies frequent falls, Denies weakness, Denies weight gain and Denies weight loss ENT Denies dizziness Card Denies chest pain, Denies leg edema, Denies lightheadedness, Denies palpitations, Denies dyspnea, Denies dyspnea on exertion, Denies orthopnea and Denies other (loss of consciousness) Resp Denies cough, Denies dyspnea and Denies dyspnea on exertion GI Denies hematochezia and Denies change in stool character Musc Denies abnormal gait, Denies muscle weakness, Denies numbness, Denies radiating pain into limb and Denies tingling Neuro Denies abnormal gait, Denies dizziness, Denies frequent falls, Denies numbness, Denies tingling and Denies weakness Endo Denies fatigue and Denies palpitations Physical Exam Vital Signs: Last Vital Signs Pulse 77 02/17/25 11:46 BP 122/82 02/17/25 11:46 BMI result Body Mass Index 32.8 GENERAL APPEARANCE: in no acute distress, pleasant. NECK: no carotid bruit, no jugular venous distention. SKIN: no suspicious lesions, warm and dry. HEART: no murmurs, regular rate and rhythm. LUNGS: clear to auscultation bilaterally. ABDOMEN: soft, nontender. EXTREMITIES: no edema. PERIPHERAL PULSES: equal. NEUROLOGIC: No gross deficits, AAO X 3 Office Procedures EKG Details: Sinus rhythm 77 beats per minute, leftward axis, inferior Q-waves, poor R-wave progression and can not rule out anterior infarct, low voltage QRS, QTC 430 milliseconds. 46010-Tgzmuiyyzjzukjlan, Complete Assessment & Plan Assessment & Plan (1) Coronary artery disease: Code(s): I25.10 - Atherosclerotic heart disease of [place] coronary artery without angina pectoris Category: Medical (2) Osteoarthritis of left knee: Code(s): M17.12 - Unilateral primary osteoarthritis, left knee Category: Medical (3) Preop cardiovascular exam: Code(s): Z01.810 - Encounter for preprocedural cardiovascular examination Category: Medical Plan Very pleasant 64-year-old lady from [place] who has known history of coronary disease with previous circumflex PCI. She has completed 1 year of dual antiplatelet therapy in November 2024. She needs knee surgery in March. She is intermediate risk for perioperative complications. I have advised her to stop the Plavix and take aspirin monotherapy. Aspirin should not be interrupted in the perioperative period. Blood pressure well controlled. Her beta-alex should not be held on the day of surgery. Losartan should be held on the day of surgery. Thank you for allowing me to participate in the care of your patient. Please feel free to contact me if you have any questions. Coding Level of Care Code Est Pt Level 3 (28227) Diagnoses Coronary artery disease I25.10 Osteoarthritis of left knee M17.12 Preop cardiovascular exam Z01.810 CPT Codes EKG - CPT: 07801-[id number], Complete ([id number])
--- OUTSIDE RECORDS SUMMARY | 2025-02-17 12:40 | XMS_ITS | Encounter Summary ---
Author Organization [facility] Address [address] [place] [address] [place] [address] Phone Care Team Providers Care Operational Assistant Name Role Phone Marianela Farris MD, MPH Primary Care Provid er Encounter Details Date Type Department Care Team (Late st Contact Info) Description 05/14/2023 Procedure Pass [facility] PERIOPERATIVE DEPT [address] [place] [address] Social History Tobacco Use Types Packs/Day Years Used Date Smoking Tobacco: Never Smokeless Tobacco: Never Alcohol Use Standard Drinks/Week Comments No 0 (1 standard drink = 0.6 oz pur e alcohol) Education Answer Date Recorded Are you interested in more education? Not on roberto e 11/16/2022 Are you concerned about learning? Not on file 11/16/2022 No 11/16/2022 No 11/16/2022 Digital Access Answer Date Recorded No 12/11/2022 No 12/11/2022 Reliable internet access at home? Not on file 12/11/2022 Device with a working camera? Not on file Comments No Sex and Gender Information Value Date Recorded Sex Assigned at Female 03/13/2024 12:29 PM EDT Legal Sex Female 4:27 PM EST Gender Identity Female 04/18/2022 2:21 PM EDT Sexual Orientation Straight 11/04/2019 9: 13 AM EDT documented as of this encounter Functional Status * Calculated C-SSRS Risk Score (Lifetime/Recent) Answer Date of Assessment Author No Risk Indicated 05/14/2023 9:23 PM EDT Ramonita Aj RN * [place] Suicide Severity Rating Scale (Screener/Recent Self-Report) Question Answer Date of Assessment Author 1. Wish to be (Past 1 Month) No 023 9:23 PM EDT Ramonita Asif RN 2. Non-Specific Active Suici amisha Thoughts (Past 1 Month) No 05/14/2023 9:23 PM EDT Toribio Asif RN 6. Suicidal Behavior (Lifetime) No 9:23 PM EDT Ramonita Asif RN documented as of this encounter Plan of Treatment Not on file documented as of this encounter Visit Diagnoses Not on filedocumented in this encounter Additional Health Concerns Assessment Noted Time PHQ-2 Depression Total Score: 0 06/02/20 19 3:27 PM EST documented as of this encounter Care Teams Operational Assistant Relationship Specialty Start Date End Date Marianela Farris MD, MPH [address] [place] [address] [email or web address] PCP - General Family Medicine 12/05/20 documented as of this encounter Additional Source Comments The information contained in this document represents components of the legal health record. It is not the complete legal health record.[facility]
--- OUTSIDE RECORDS SUMMARY | 2025-02-17 12:41 | XMS_ITS | Patient Health Record ---
[facility] [place] Address [address] [place] [address] Care Team Providers Care Head Bellhop Captain Name Role Phone Germania Ruffin Primary Care Provider Kelvin Sullivan Unavailable [phone] Allergies Allergen (clinical drug ingredient) Drug/Non Drug [...] Insured Coverage Start Date Coverage End Date [facility] [address] [place] [address] [id number] Brittani Mello Self - patient is the insured Medical (General) History Medical History History ICD Code asthma Back,Hip,and Knee pain Measles Mumps Chicken pox osteoarthritis Varicose veins Bunion Plantar fasciitis Surgical History Surgery Date(Month/Year) section 1993, 1996 appendectomy 2006
== END 2025-02-17 12:21 | disposition home or self-care (01) ==
LOC: HO.HCS 11:41
PROVIDERS: PCP Family Medicine; Visit Provider Internal Medicine Cardiovascular Disease
DX: I25.10 Atherosclerotic heart disease of native coronary artery without angina pectoris (principal); M17.12 Unilateral primary osteoarthritis, left knee; Z01.810 Encounter for preprocedural cardiovascular examination
CPT/HCPCS: 93010; 99213

== ENCOUNTER 2025-02-24 13:56 | Outpatient (REF) | payer OTHER, SELFPAY ==
--- OUTSIDE RECORDS SUMMARY | 2025-02-24 14:28 | XMS_ITS | Patient Health Record ---
[facility] [place] Address [address] [place] [address] Care Team Providers Care Teen Counselor Name Role Phone Germania Ruffin Primary Care Provider Kelvin Sullivan Unavailable [phone] Allergies Allergen (clinical drug ingredient) Drug/Non Drug [...] Insured Coverage Start Date Coverage End Date [facility] [address] [place] [id number] Brittani Mello Self - patient is the insured Medical (General) History Medical History History ICD Code asthma Back,Hip,and Knee pain Measles Mumps Chicken pox osteoarthritis Varicose veins Bunion Plantar fasciitis Surgical History Surgery Date(Month/Year) section 1993, 1996 appendectomy 2006
--- OUTSIDE RECORDS SUMMARY | 2025-02-24 14:28 | XMS_ITS | Encounter Summary ---
Author Organization [facility] Address [address] [place] [address] [place] [address] Phone Care Team Providers Care Interior Decorator Name Role Phone Marianela Farris MD, MPH Primary Care Provid er Encounter Details Date Type Department Care Team (Late st Contact Info) Description 05/14/2023 Procedure Pass [facility] PERIOPERATIVE DEPT [address] [place] [address] Social History Tobacco Use Types [...] Risk Indicated 05/14/2023 9:23 PM EDT Ramonita jA RN * [place] Suicide Severity Rating Scale (Screener/Recent Self-Report) Question [...] documented as of this encounter Care Teams Interior Decorator Relationship Specialty Start Date End Date Marianela Farris MD, MPH [address] [place] [address] [email or web address] PCP - General Family Medicine 12/05/20 documented as of this encounter Additional Source Comments The information contained in this document represents components of the legal health record. It is not the complete legal health record.[facility]
== END 2025-02-24 13:57 | disposition home or self-care (01) ==
LOC: HO.MAMMO 13:56
DX: Z12.31 Encounter for screening mammogram for malignant neoplasm of breast (principal)
CPT/HCPCS: 77063; 77067

== ENCOUNTER → 2025-02-24 14:00 | Outpatient (BNV) | payer OTHER, SELFPAY | PROVIDERS: Visit Provider Radiology Body Imaging | DX: Z12.31 Encounter for screening mammogram for malignant neoplasm of breast (principal) | CPT/HCPCS: 77063; 77067 ==

== ENCOUNTER 2025-02-24 14:24 | Outpatient (AMB) | payer OTHER, SELFPAY ==
--- NOTE | 2025-02-24 14:31 | A.OFFPC_ITS ---
Vital Signs 02/24/25 14:33 Height 5 ft 3 in Weight 183 lb 4 oz BMI 32.5 BP 112/74 Position Right Lateral Pulse 84 Pulse Source Pulse Oximeter Pulse Oximetry (%) 96 Oxygen Delivery Method Room Air Intake Visit Reasons: Kris frank/Dr Dickson 04/19/25 Tinter Photograph Required: No Accompanied by: Self / Same As Patient Allergies latex Allergy (Verified 02/24/25 14:41) hives, swelling Medication List - Last Reconciled 02/24/25 by Tia Thomas PA-C acetaminophen 975 mg PO TID PRN amlodipine 10 mg PO DAILY aspirin 81 mg PO DAILY atorvastatin 80 mg PO DAILY losartan 25 mg PO DAILY metoprolol succinate ER (Toprol XL) 25 mg PO DAILY polyethylene glycol 3350 (Miralax) 17 grams PO DAILY semaglutide (Ozempic) 1 mg subcut QWEEK therapeutic multivitamin 1 tab PO DAILY walker Folding front wheeled walker Tobacco use date assessed: 02/24/25 Dental Screening Dental Screen Date: 02/24/25 Did you have a dental visit in the last 12 months?: Yes Did you have a dental problem in the last 6 months where you did not have access to dental care?: No Was dental information given to patient?: Patient has dentist HPI Kris frank/Dr Dickson 04/19/25 HPI Details 64-year-old female with past medical his tory of coronary artery disease, obesity, lumbar spondylosis with radiculopathy and osteoarthritis of left knee last seen 11/2024 coming in for pre operative visit. She is scheduled to have LTKA with Dr. Dickson 04/19/2025. Patient recently seen by cardiology 01/2025 for pre op determined to be intermediate cardiac risk. She was advised to continue on ASA and continue with BB up through the day of the procedure and hold Losartan on the day of but it otherwise cleared for surgery. CAD: Recently seen by cardiology determined to be intermediate risk HTN: Blood pressure is well managed at this time. Continue on Losartan, amlodipine, and Metoprolol Weight loss: Patient is currently using Ozempic for weight loss and has a noted 12 lb weight loss since last visit. No history of CHF, DM or CVA. She has had surgery and anesthesia in the past without complication. She does have a history of a myocardial infarction in his currently following with [facility]. [facility] Medical History Asthma Surgical History History of appendectomy History of 2 sections History of total right knee replacement History of heart artery stent Family History Brother Heart attack Sister Stented coronary artery Social History Housing: Condominium Alcohol intake: never Patient Tobacco Use Status: Never used Tobacco e-Cigarette/Vaping Use: Never Used Second Hand Smoke Exposure: No service: No Current occupational status: unemployed Cognitive needs: No Hearing needs: No Vision needs: No Questionnaire Thrive Questionnaire Date Thrive assessed: 02/24/25 I am a: Patient What is your living situation today?: I have a steady place to live Within the past 12 months, did the food you bought not last and you didn't have the money to get more?: Often true Within the past 12 months, did you worry whether your food would run out before you got money to buy more?: Sometimes True Do you have trouble paying for medicines?: Yes Do you have trouble getting transportation to medical appointments?: Yes Do you have trouble paying your heating and electricity bill?: No Do you have trouble taking care of your child, family member or friend?: I choose not to answer this question Do you have trouble with day-to-day activities such as bathing, preparing meals, shopping, managing finances, etc.?: I choose not to answer this question Are you currently unemployed and looking for a job?: No Are you interested in more education?: No Please select the resources that you would like help with: None Currently or been in a relationship where the following occur: No concerns reported THRIVE Score: 3 BARBARA-7 AMB Questionnaire BARBRAA-7 Date BARBARA - 7 assessed: 02/24/25 Source: Developed by Drs. Pantera Zuniga, Keysha Brown, Aurelio Hernández and colleagues, with an educational moshe from [employer]. Review of Systems Const Denies body aches, Denies fatigue, Denies fever(s), Denies frequent falls, Denies headache(s) and Denies weakness Eyes Reports no additional complaints and Denies change in vision ENT Denies dysphagia, Denies dizziness, Denies facial pain, Denies headache(s), Denies nasal congestion and Denies odynophagia Card Denies chest pain, Denies syncope, Denies irregular heart rhythm, Denies leg edema, Denies lightheadedness and Denies dyspnea Resp Denies cough and Denies dyspnea GI Denies abdominal pain, Denies constipation, Denies dysphagia, Denies dyspepsia, Denies diarrhea, Denies nausea, Denies odynophagia and Denies vomiting Denies urinary frequency, Denies dysuria, Denies urinary hesitancy and Denies urinary urgency Musc Denies back pain and Denies myalgias Skin/Breast Reports system reviewed and no additional complaints, except as documented Neuro Denies dizziness, Denies syncope, Denies frequent falls, Denies headache(s) and Denies weakness Psych Reports no additional complaints Endo Denies fatigue Physical exam (Primary Care) Vital Signs: Last Vital Signs Pulse 84 02/24/25 14:33 BP 112/74 02/24/25 14:33 Pulse Ox 96 02/24/25 14:33 Oxygen Delivery Method Room Air 02/24/25 14:33 BMI result Body Mass Index 32.5 Tobacco/Smoking Status: Tobacco use Status Tobacco use date assessed 02/24/25 02/24/25 14:39 Patient Tobacco Use Status Never used Tobacco 02/24/25 14:39 e-Cigarette/Vaping Use Never Used 02/24/25 14:39 Thrive Assessment: Date of Thrive Assessment Date Thrive assessed 02/24/25 02/24/25 14:39 Currently or been in a relationship where the following occur: No concerns reported Const General: cooperative, healthy appearing, comfortable and no acute distress Orientation/consciousness: patient oriented x3 HENMT Head: Yes normocephalic Ears: hearing grossly normal bilaterally, TM's normal bilaterally and EAC's normal General nose exam: Normal external nose present Eyes General: appearance normal, both eyes and all related structures Conjunctivae: conjunctivae normal Neck Neck: Yes full ROM and Yes no lymphadenopathy Resp Effort & Inspection: normal respiratory effort Auscultation: clear to auscultation bilaterally, no crackles, no rales, no rhonchi and no wheezes Cardio Rate: regular rate Rhythm: regular rhythm GI Palpation (GI): Soft to palpation, not firm, nontender, no guarding, not rigid and No Rebound tenderness present Skin General skin exam: no rashes or lesions noted Neuro General: patient oriented x3 Gait exam (Neuro): Normal gait present Extrem General: Yes normal to inspection, Yes full ROM and No edema Psych Affect: normal affect Attitude: cooperative Insight: Good insight present (Psych) Judgement: Good judgement present (Psych) Coding Level of Care Code Est Pt Level 3 (51614) Diagnoses Pre-op evaluation Z01.818 Assessment & Plan Assessment & Plan (1) Pre-op evaluation: Code(s): Z01.818 - Encounter for other preprocedural examination Category: Medical Plan: Regarding preop clearance, the patient is at moderate risk for proposed surgery due to age, comorbidities and past medical history of [place]. she was cleared for surgery as intermediate risk by her process consultant. Reviewed with the patient that no surgery is completely free of risk and that this examination is to assist the surgeon in reviewing informed consent. She was to continue on her medications with the exception of Ozempic which must be stopped 1 week prior to surgery and losartan held in the morning of the procedure. EKG and blood work (11/2024) evaluated. No further workup needed at this time and may proceed with the contemplated procedure. Thank you very much for letting me participate in the care of this patient. Plan This note was constructed using voice recognition software. While every effort has been made to ensure accuracy and hydraulic bull riveter operator, still areas may have been included sometimes these areas may affect the content or meeting of the given symptoms. Total time spent caring for the patient today was 20 minutes. This includes time spent before the visit reviewing the chart, time spent during the visit, and time spent after the visit and documentation. Patient was informed a nd verbally consented to the use of an ambient scribe for clinic note documentation during this visit.
[2025-02-24 14:33] VITALS: BP 112/74; PULSE 84; O2SAT 96; BMI 32.5
== END 2025-02-24 15:10 | disposition home or self-care (01) ==
LOC: HO.HMCH 14:25
DX: Z01.818 Encounter for other preprocedural examination (principal)

== ENCOUNTER → 2025-03-26 10:23 | Outpatient (BNVA) | payer OTHER, SELFPAY | PROVIDERS: PCP Family Medicine | DX: Z01.818 Encounter for other preprocedural examination (principal) ==

== ENCOUNTER 2025-04-14 14:10 | Outpatient (AMB) | payer OTHER, SELFPAY ==
--- NOTE | 2025-04-14 14:13 | MHC.OFFVIS ---
Vital Signs 04/14/25 14:18 Height 5 ft 3 in Weight 183 lb BMI 32.4 Intake Visit Reasons: Pre-Op: L TKA w/ 04/19/25 Intake Note: Brittani is a 63 year old female who presents with complaints of progressively worsening left knee pain. The patient did undergo right total knee replacement surgery in 2022 at [facility]. Following her right total knee replacement surgery she did go to inpatient rehabilitation at [facility]. She reports minimal discomfort in her right knee. She describes her left knee pain as sharp and severe in nature. Her left knee pain has gotten worse over the last few years in spite of continued non operative treatments. She has tried physical therapy which aggravated her pain. She has also tried Tylenol and anti-inflammatory medicines which gave her minimal relief. She has difficulty walking even short distances because of her pain. At this point her left knee pain is interfering with her activities of daily living and her ability to sleep well through the night. At today's visit patient was read the pain management agreement form, reviewed and signed. Allergies latex Allergy (Verified 03/26/25 10:53) hives, swelling Medication List - Last Reconciled 04/14/25 by Miguel Dickson MD acetaminophen 975 mg PO TID PRN amlodipine 10 mg PO DAILY aspirin 81 mg PO DAILY atorvastatin 80 mg PO DAILY losartan 25 mg PO DAILY metoprolol succinate ER (Toprol XL) 25 mg PO DAILY polyethylene glycol 3350 (Miralax) 17 grams PO DAILY PRN semaglutide (Ozempic) 1 mg subcut QWEEK therapeutic multivitamin 1 tab PO DAILY walker Folding front wheeled walker [facility] Medical History Back pain Numbness On beta alex at home Myocardial infarction HTN (hypertension) Asthma Surgical History H/O colonoscopy History of appendectomy History of 2 sections History of total right knee replacement (~05/14/23) History of heart artery stent Family History Brother Heart attack Sister Stented coronary artery Social History Housing: Condominium Are you a primary college and career counselor to a significant other at home: No Do you presently have visiting nurse or other home services: No Alcohol intake: never Patient Tobacco Use Status: Never used Tobacco e-Cigarette/Vaping Use: Never Used Second Hand Smoke Exposure: No service: No Current occupational status: unemployed Cognitive needs: No Hearing needs: No Vision needs: No Physical Exam Const Other: Well-nourished well-developed very friendly female awake alert and oriented x3 in no acute distress Extrem Other: Bilateral lower extremity examination shows good capillary refill, no skin lesions noted, normal sensation light touch Left knee examination shows a minimal effusion, palpable crepitus with range of motion, pain with range of motion, range of motion from -3 degrees to 115 degrees, no instability Assessment & Plan Assessment & Plan (1) Osteoarthritis of left knee: Code(s): M17.12 - Unilateral primary osteoarthritis, left knee Category: Medical Plan Ms. Mello presents with progressively worsening left knee pain due to end-stage degenerative joint disease. I had a lengthy discussion with the patient regarding the treatment options. At this point she has failed continued non operative treatments. The risks and benefits of left total knee replacement surgery were discussed at length with the patient. The patient wishes to proceed. The patient went to [facility] following her right total knee replacement surgery. guest services will be consulted following her left total knee replacement surgery for inpatient rehabilitation once again at [facility]. The patient will follow-up as instructed. Feel free to call me at any time should questions regarding her orthopedic management arise. I spent 22 minutes in reviewing the patient's records and imaging studies, seeing the patient and documenting in the medical record. Coding Level of Care Code Est Pt Level 3 (82004) Complex EM visit Add On G2211 Diagnoses Osteoarthritis of left knee M17.12
[2025-04-14 14:18] VITALS: BMI 32.4
--- OUTSIDE RECORDS SUMMARY | 2025-04-14 16:57 | XMS_ITS | Encounter Summary ---
Author Organization [facility] Address [address] [place] [phone] Phone Care Team Providers Care Hauling Contractor Name Role Phone Marianela Farrsi MD, MPH Primary Care Provid er Encounter Details Date Type Department Care Team (Late st Contact Info) Description 11/15/2023 Procedure Pass [facility], [address] [address] Social History Tobacco Use Types Packs/Day Years [...] AM EDT documented as of this encounter Plan of Treatment Not on file documented as of this encounter Visit Diagnoses Not on filedocumented in this encounter Additional Health Concerns Assessment Noted Time PHQ-9 Depression Total Score: 2 12/25/19 24 2:34 PM EDT PHQ-2 Depression Total Score: 0 06/02/20 19 3:27 PM EST documented as of this encounter Care Teams Hauling Contractor Relationship Specialty Start Date End Date Marianela Farris MD, MPH [address] [place] [id number] [email or web address] PCP - General Family Medicine 12/05/20 documented as of this encounter Additional Source Comments The information contained in this document represents components of the legal health record. It is not the complete legal health record.[facility]
--- OUTSIDE RECORDS SUMMARY | 2025-04-14 16:57 | XMS_ITS | Encounter Summary ---
Author Organization [facility] Address [address] [place] [phone] Phone Care Team Providers Care High School Art Teacher Name Role Phone Marianela Farris MD, MPH Primary Care Provid er Encounter Details Date Type Department Care Team (Late st Contact Info) Description 04/18/2022 Ancillary Orders [facility] Medicine [address] [place] [phone] Allen Greenberg MD [address] [place] [phone] [email or web address] Social History Tobacco Use Types Packs/Day Years Used Date Smoking Tobacco: Never Smokeless Tobacco: Never Alcohol Use Standard Drinks/Week Comments No 0 (1 standard drink = 0.6 oz pur e alcohol) Comments No Sex and Gender Information Value [...] filedocumented in this encounter Additional Health Concerns Infection Onset Date Last Indicated Resolved Time COVID-19 10/08/2022 10/08/2022 10/29/2022 1:21 AM EDT Assessment Noted Time PHQ-2 Depression Total Score: 0 06/02/20 3:27 PM EST documented as of this encounter Care Teams High School Art Teacher Relationship Specialty Start Date End Date Marianela Farris MD, MPH [address] [place] [address] [email or web address] PCP - General Family Medicine 12/05/20 documented as of this encounter Additional Source Comments The information contained in this document represents components of the legal health record. It is not the complete legal health record.[facility]
--- OUTSIDE RECORDS SUMMARY | 2025-04-14 16:57 | XMS_ITS | Encounter Summary ---
Author Organization [facility] Address [address] [place] [phone] Phone Care Team Providers Care Senior Supplier Quality Engineer Name Role Phone Marianela Farris MD, MPH Primary Care Provid er Encounter Details Date Type Department Care Team (Late st Contact Info) Description 03/21/2023 Telephone [facility] [address] [facility], [facility] [address] [place] [address] Sonam Prater, CARDIOTHORACIC PHYSIOTHERAPIST [address] [address] [email or web address] Social History Tobacco Use Types Packs/Day Years [...] with a working camera? Not on file 05 / Comments No Sex and Gender Information Value [...] documented as of this encounter Care Teams Senior Supplier Quality Engineer Relationship Specialty Start Date End Date Marianela Farris MD, MPH [address] [place] [address] [email or web address] PCP - General Family Medicine 12/05/20 documented as of this encounter Additional Source Comments The information contained in this document represents components of the legal health record. It is not the complete legal health record.[facility]
--- OUTSIDE RECORDS SUMMARY | 2025-04-14 16:57 | XMS_ITS | Encounter Summary ---
Author Organization [facility] Address [address] [place] [address] [place] [phone] Phone Care Team Providers Care Tenoner Operator Name Role Phone Marianela Farris MD, MPH Primary Care Provid er Encounter Details Date Type Department Care Team (Late st Contact Info) Description 05/14/2023 Procedure Pass [facility] PERIOPERATIVE DEPT [address] [place] [address] Social History Tobacco Use Types [...] 9:23 PM EDT Ramonita Aj RN * Crisp Suicide Severity Rating Scale (Screener/Recent Self-Report) Question [...] documented as of this encounter Care Teams Tenoner Operator Relationship Specialty Start Date End Date Marianela Farris MD, MPH [address] [place] [address] [email or web address] PCP - General Family Medicine 12/05/20 documented as of this encounter Additional Source Comments The information contained in this document represents components of the legal health record. It is not the complete legal health record.[facility]
--- OUTSIDE RECORDS SUMMARY | 2025-04-14 16:57 | XMS_ITS | Encounter Summary ---
Author Organization [facility] Address [address] [place] [phone] Phone Care Team Providers Care Chief Cloth Finishing Range Operator Name Role Phone Marianela Farris MD, MPH Primary Care Provid er Encounter Details Date Type Department Care Team (Late st Contact Info) Description 11/13/2023 Procedure Pass [facility], [address] [address] Social History Tobacco Use Types Packs/Day Years [...] documented as of this encounter Care Teams Chief Cloth Finishing Range Operator Relationship Specialty Start Date End Date Marianela Farris MD, MPH [address] [place] [phone] [email or web address] PCP - General Family Medicine 12/05/20 documented as of this encounter Additional Source Comments The information contained in this document represents components of the legal health record. It is not the complete legal health record.[facility]
--- OUTSIDE RECORDS SUMMARY | 2025-04-14 16:57 | XMS_ITS | Encounter Summary ---
Author Organization [facility] Address [address] [place] [phone] Phone Care Team Providers Care University Professor Name Role Phone Marianela Farris MD, MPH Primary Care Provid er Encounter Details Date Type Department Care Team (Late st Contact Info) Description 05/17/2022 Transcribe Orders Virtual Department [address] [place] [address] Marianela Farris MD, MPH [address] [facility] [address] [place] [address] [email or web address] Breast screening (Primary Dx) Social History Tobacco Use Types Packs/Day Years [...] on file documented as of this encounter Results * BI MAMMOGRAM SCREENING WITH TOMOSYNTHESIS WITH CAD (BILATERAL) (08/14/2022 2:20 PM EST) Anatomical Region Laterality Modality Breast Left, Breast Right, Breast Bilateral Bila teral Mammography 08/16/2022 11:0 6 AM EST Impressions 08/16/2022 11:20 AM EST No findings suspicious for malignancy are identified. In the absence of a worrisome palpable abnormality, annual screening mammography is recommended. BI-RADS CATEGORY: 1 - Negative. DENSITY: There are scattered fibroglandular densities. Narrative 08/16/2022 11:20 AM EST AVAILABLE COMPARISON: 08/08/2021 through 01/09/2008 Bilateral 3-D tomosynthesis with 2-D reconstructions in the CC and MLO projection. Computer-aided detection system was utilized. No new mass, asymmetry, architectural distortion or suspicious calcifications have become apparent in either breast. Procedure Note Kingston Benjamin MD - 08/16/2022 AVAILABLE COMPARISON: 08/08/2021 through 01/09/2008 Bilateral 3-D tomosynthesis with 2-D reconstructions in the CC and MLOprojection. Computer-aided detection system was utilized. No new mass, asymmetry, architectural distortion or suspiciouscalcifications have become apparent in either breast. IMPRESSION: No findings suspicious for malignancy are identified. In the absence of aworrisome palpable abnormality, annual screening mammography isrecommended. BI-RADS CATEGORY: 1 - Negative. DENSITY: There are scattered fibroglandular densities. us Marianela Farris MD, MPH IMG MG EXAMS Brielle gamble Result documented in this encounter Visit Diagnoses Diagnosis Breast screening- Primary Breast screening, unspecified Breast screening Breast screening, unspecified documented in this encounter Additional Health Concerns Infection Onset Date Last Indicated Resolved Time COVID-19 10/08/2022 10/08/2022 10/29/2022 1:21 AM EDT Assessment Noted Time PHQ-2 Depression Total Score: 0 06/02/20 3:27 PM EST documented as of this encounter Care Teams University Professor Relationship Specialty Start Date End Date Marianela Farris MD, MPH [address] [place] [address] [email or web address] PCP - General Family Medicine 12/05/20 documented as of this encounter Additional Source Comments The information contained in this document represents components of the legal health record. It is not the complete legal health record.[facility]
--- OUTSIDE RECORDS SUMMARY | 2025-04-14 16:57 | XMS_ITS | Encounter Summary ---
Author Organization [facility] Address [address] [place] [address] [place] [address] Phone Care Team Providers Care Animal Anatomist Name Role Phone Marianela Farris MD, MPH Primary Care Provid er Encounter Details Date Type Department Care Team (Late st Contact Info) Description 02/24/2021 Procedure Pass [facility] [address] [place] [address] Social History Tobacco Use Types Packs/Day Years [...] Date of Assessment Author No Risk Indicated 02/24/2021 2:22 AM EDT Lashaun Roche RN * [place] Suicide Severity Rating Scale (Screener/Recent Self-Report) Question Answer Date of Assessment Author 1. Wish to be (Past 1 Month) No 02/24/2021 2:22 AM EDT Lashaun Rock RN 2. Non-Specific Active Suici amisha Thoughts (Past 1 Month) No 02/24/2021 2:22 AM EDT Malu Rock RN 6. Suicidal Behavior (Lifetime) No 2:22 AM EDT Lashaun Rock RN documented as of this encounter Plan of Treatment Not on file documented as of this encounter Visit Diagnoses Not on filedocumented in this encounter Additional Health Concerns Infection Onset Date Last Indicated Resolved Time CoV-Exposed Comment:Recent close contact documented in the Travel/Symptom Screening Form 02/18/2021 02/24/2021 03/05/2021 1:25 AM E DT COVID-19 10/08/2022 10/08/2022 10/29/2022 1:21 AM EDT Assessment Noted Time PHQ-2 Depression Total Score: 0 06/02/20 19 3:27 PM EST documented as of this encounter Care Teams Animal Anatomist Relationship Specialty Start Date End Date Marianela Farris MD, MPH [address] [place] [address] [email or web address] PCP - General Family Medicine 12/05/20 documented as of this encounter Additional Source Comments The information contained in this document represents components of the legal health record. It is not the complete legal health record.[facility]
--- OUTSIDE RECORDS SUMMARY | 2025-04-14 16:57 | XMS_ITS | Encounter Summary ---
Author Organization [facility] Address [address] [place] [address] Phone Care Team Providers Care Drafting Detailer Name Role Phone Germania Ruffin DO Primary Care Provider +1- [phone] Uyen Vivas MD Primary Care Provider +1- [phone] Marianela Farris MD, MPH Primary Care Provid er Encounter Details Date Type Department Care Team (Late st Contact Info) Description 11/02/2020 Procedure Pass [place] Admitting Dept - Virtual Department [address] [place] [address] Social History Tobacco Use Types Packs/Day Years [...] documented as of this encounter Care Teams Drafting Detailer Relationship Specialty Start Date End Date Germania Ruffin DO [address] [place] [phone] [email or web address] PCP - General Family Medicine 08/10/20 11/24/20 Uyen Vivas MD [address] [place] [phone] [email or web address] PCP - General Family Medicine 11/25/20 12/04/20 Marianela Farris MD, MPH [address] [place] [phone] [email or web address] PCP - General Family Medicine 12/05/20 documented as of this encounter Additional Source Comments The information contained in this document represents components of the legal health record. It is not the complete legal health record.[facility]
--- OUTSIDE RECORDS SUMMARY | 2025-04-14 16:57 | XMS_ITS | Encounter Summary ---
Author Organization [facility] Address [address] [place] [address] Phone Care Team Providers Care Dry Finisher Name Role Phone Marianela Farris MD, MPH Primary Care Provid er Encounter Details Date Type Department Care Team (Latest Contact Info) Description 04/18/2022 Ancillary Orders [facility] [address] [place] [phone] Allen Greenberg MD [address] [place] [phone] [email or web address] Primary osteoarthritis of right knee Social History Tobacco Use Types Packs/Day Years [...] documented as of this encounter Results * XR KNEE 4 OR MORE VIEWS (BILATERAL) (04/18/2022 3:02 PM EDT) Anatomical Region Laterality Modality Knee Bilateral, Knee Right, Knee Left Computed Radiography 04/18/2022 3:15 PM EDT Impressions 04/18/2022 3:16 PM EDT Progressive severe bilateral osteoarthritis. Narrative 04/18/2022 3:16 PM EDT COMPARISON: 05/22/2021. BILATERAL KNEE RADIOGRAPH FINDINGS: 6 images obtained with weightbearing. No acute fracture or malalignment. Progressive severe bilateral medial knee compartment joint space narrowing, osteophytes and subchondral sclerosis. No destructive or suspicious bone lesions. Stable small bilateral knee joint effusions. No soft tissue swelling. Procedure Note Deni Mcpherson MD - 04/18/2022 COMPARISON: 05/22/2021. BILATERAL KNEE RADIOGRAPH FINDINGS: 6 images obtained with weightbearing. No acute fracture or malalignment. Progressive severe bilateral medialknee compartment joint space narrowing, osteophytes and subchondralsclerosis. No destructive or suspicious bone lesions. Stable smallbilateral knee joint effusions. No soft tissue swelling. IMPRESSION: Progressive severe bilateral osteoarthritis. Allen Greenberg MD IMG XR LOWER EXTREMIT Y Final Result documented in this encounter Visit Diagnoses Diagnosis Primary osteoarthritis of right knee Primary osteoarthritis of right knee documented in this encounter Additional Health Concerns Infection Onset Date Last Indicated Resolved Time COVID-19 10/08/2022 10/08/2022 10/29/2022 1:21 AM EDT Assessment Noted Time PHQ-2 Depression Total Score: 0 06/02/20 19 3:27 PM EST documented as of this encounter Care Teams Dry Finisher Relationship Specialty Start Date End Date Marianela Farris MD, MPH [address] [place] [phone] PCP - General Family Medicine 12/05/20 documented as of this encounter Additional Source Comments The information contained in this document represents components of the legal health record. It is not the complete legal health record.[facility]
--- OUTSIDE RECORDS SUMMARY | 2025-04-14 16:57 | XMS_ITS | Encounter Summary ---
Author Organization [facility] Address [address] [facility] [address] [place] [address] Phone Care Team Providers Care Welfare Director Name Role Phone Marianela Farris MD, MPH Primary Care Provid er Encounter Details Date Type Department Care Team (Late st Contact Info) Description 08/19/2023 Transcribe Orders [facility] [address] [place] [address] Gwen Lujan, JEMAL [address] [facility] [address] [place] [address] [email or web address] Social History Tobacco Use Types Packs/Day Years [...] documented as of this encounter Care Teams Welfare Director Relationship Specialty Start Date End Date Marianela Farris MD, MPH [address] [place] [address] [email or web address] PCP - General Family Medicine 12/05/20 documented as of this encounter Additional Source Comments The information contained in this document represents components of the legal health record. It is not the complete legal health record.[facility]
--- OUTSIDE RECORDS SUMMARY | 2025-04-14 16:57 | XMS_ITS | Encounter Summary ---
Author Organization [facility] Address [address] [place] [address] [place] [address] Phone Care Team Providers Care Production Mechanic Tin Cans Name Role Phone Marianela Farris MD, MPH Primary Care Provid er Encounter Details Date Type Department Care Team (Late st Contact Info) Description 04/11/2023 Transcribe Orders [facility] [address] [place], [place] [id number] Sonam Prater, GROUND INSTRUCTOR ADVANCED [address] [address] [email or web address] Social History Tobacco Use Types Packs/Day Years [...] documented as of this encounter Care Teams Production Mechanic Tin Cans Relationship Specialty Start Date End Date Marianela Farris MD, MPH [address] [place] [address] [email or web address] PCP - General Family Medicine 12/05/20 documented as of this encounter Additional Source Comments The information contained in this document represents components of the legal health record. It is not the complete legal health record.[facility]
--- OUTSIDE RECORDS SUMMARY | 2025-04-14 16:57 | XMS_ITS | Encounter Summary ---
Author Organization [facility] Address [address] [place] [address] Phone Care Team Providers Care Blending Machine Feeder Name Role Phone Germania Ruffin DO Primary Care Provider [phone]- [phone] Uyen Vivas MD Primary Care Provider +1- [phone] Marianela Farris MD, MPH Primary Care Provid er Encounter Details Date Type Department Care Team (Late st Contact Info) Description 10/24/2020 Procedure Pass OR Admitting Dept - Virtual Department [address] [place] [address] Social History Tobacco Use Types Packs/Day Years [...] documented as of this encounter Care Teams Blending Machine Feeder Relationship Specialty Start Date End Date Germania Ruffin DO [address] [place] [address] [email or web address] PCP - General Family Medicine 08/10/20 11/24/20 Uyen Vivas MD [address] [place] [address] [email or web address] PCP - General Family Medicine 11/25/20 12/04/20 Marianela Farris MD, MPH [address] [place] [address] [email or web address] PCP - General Family Medicine 12/05/20 documented as of this encounter Additional Source Comments The information contained in this document represents components of the legal health record. It is not the complete legal health record.[facility]
--- OUTSIDE RECORDS SUMMARY | 2025-04-14 16:57 | XMS_ITS | Encounter Summary ---
Author Organization [facility] Address [address] [facility] [address] [place] [address] Phone Care Team Providers Care Adjunct Professor Of Voice Name Role Phone Marianela Farris MD, MPH Primary Care Provid er Encounter Details Date Type Department Care Team (Late st Contact Info) Description 03/13/2024 Procedure Pass [facility] [address] [place] [address] Social History Tobacco Use Types Packs/Day Years Used Date Smoking Tobacco: Never Smokeless Tobacco: Never Alcohol Use Standard Drinks/Week Comments No 0 (1 standard drink = 0.6 oz pur e alcohol) Child or Family Care Answer Date Record ed Do you have problems with on e of the following making it difficult for you to work, study, or receive health care? No 01/03/2024 Education Answer Date Recorded Are you interested in help w ith more adult education (for example, completing high school, GED, job training, learning the [place] language, technical skills, or developing parenting skills)? I choose not to answer 01/03/2024 Are you concerned about learning? Not on file 01/03/2024 No 01/03/2024 Yes 01/03/2024 Food Answer Date Recorded Within the past 6 months we worried whether our food would run out before we got money to buy more. Often True 01/03/2024 Within the past 6 months the food we bought just didn't last and we didn't have enough money to get more. Often True Residential Stability Answer Date Recor ded What is your housing situation today? I have duy hawk 01/03/2024 How many times have you move d in the past 12 months? Zero (I did not move) 01/03/2024 Paying for Meds Answer Date Recorded Do you have trouble paying for medicines? Yes 01/03/2024 Paying Utility Bills Answer Date Record ed Do you have trouble paying y our heating or electricity bill? I choose not to answer 01/03/2024 Transportation Answer Date Recorded Has the lack of transportati on kept you from medical appointments or from getting medications? Yes 01/03/2024 Digital Access Answer Date Recorded No 01/03/2024 Yes 01/03/2024 Do you have reliable internet access at home? Ye s 01/03/2024 Do you have a device (e.g., phone, tablet, computer) with a working camera? Yes 01/03/2024 Intimate Partner Violence Answer Date R ecorded Are you denied basic needs s uch as food, clothing, or medical care? No 03/13/2024 In the past 12 months have y ou been in a relationship with a person who hurts, threatens, or tries to control you? No 03/13/2024 Are you denied basic needs s uch as food, clothing, or medical care? No 03/13/2024 In the past 12 months have y ou been in a relationship with a person who hurts, threatens, or tries to control you? No 03/13/2024 Comments No Sex and Gender Information Value Date Recorded Sex Assigned at Female 03/13/2024 12:29 PM EDT Legal Sex Female 4:27 PM EST Gender Identity Female 04/18/2022 2:21 PM EDT Sexual Orientation Straight 11/04/2019 9: 13 AM EDT documented as of this encounter Functional Status * Calculated C-SSRS Risk Score (Lifetime/Recent) Answer Date of Assessment Author No Risk Indicated 03/13/2024 12:29 PM EDT Andria Cash RN * [place] Suicide Severity Rating Scale (Screener/Recent Self-Report) Question Answer Date of Assessment Author 1. Wish to be (Past 1 Month) No 03/13/2024 12:29 PM EDT Andria Cash RN 2. Non-Specific Active Suicidal Thoughts (Past 1 Month) No 03/13/2024 12:29 PM EDT Andria Cash RN 6. Suicidal Behavior (Lifetime) No 03/13/2024 12:29 PM EDT Andria Cash RN documented as of this encounter Plan of Treatment Not on file documented as of this encounter Visit Diagnoses Not on filedocumented in this encounter Additional Health Concerns Assessment Noted Time PHQ-9 Depression Total Score: 21 024 4:28 PM EDT PHQ-2 Depression Total Score: 3 01/03/20 24 4:28 PM EDT documented as of this encounter Care Teams Adjunct Professor Of Voice Relationship Specialty Start Date End Date Marianela Farris MD, MPH [address] [place] [address] [email or web address] PCP - General Family Medicine 12/05/20 documented as of this encounter Additional Source Comments The information contained in this document represents components of the legal health record. It is not the complete legal health record.[facility]
--- OUTSIDE RECORDS SUMMARY | 2025-04-14 16:58 | XMS_ITS | Encounter Summary ---
Author Organization [facility] Address [address] [place] [address] [place] [address] Phone Care Team Providers Care Nailer Machine Name Role Phone Marianela Farris MD, MPH Primary Care Provid er Encounter Details Date Type Department Care Team (Late st Contact Info) Description 05/17/2022 Procedure Pass [address] [address] Social History Tobacco Use Types Packs/Day Years [...] Noted Time PHQ-2 Depression Total Score: 0 11/12/20 19 3:27 PM EST documented as of this encounter Care Teams Nailer Machine Relationship Specialty Start Date End Date Marianela Farris MD, MPH [address] [place] [address] [email or web address] PCP - General Family Medicine 12/05/20 documented as of this encounter Additional Source Comments The information contained in this document represents components of the legal health record. It is not the complete legal health record.[facility]
--- OUTSIDE RECORDS SUMMARY | 2025-04-14 16:58 | XMS_ITS | Encounter Summary ---
Author Organization [facility] Address [address] [place] [phone] Phone Care Team Providers Care Forest Management Professor Name Role Phone Marianela Farris MD, MPH Primary Care Provid er Encounter Details Date Type Department Care Team (Late st Contact Info) Description 09/05/2021 Procedure Pass [facility], [address] [address] Social History Tobacco Use Types Packs/Day Years [...] AM EDT documented as of this encounter Last Filed Vital Signs Vital Sign Reading Time Taken Comments Blood Pressure - - Pulse - - Temperature - - Respiratory Rate - - Oxygen Saturation - - Inhaled Oxygen Concentration - - Weight 79.4 kg (175 lb) 09/07/2021 2:16 PM EST Height 160 cm (5' 3 ) 09/07/2021 2:16 PM EST Body Mass Index 31 09/07/2021 2:16 PM EST documented in this encounter Plan of Treatment Not on file documented as of this encounter Visit Diagnoses Not on filedocumented in this encounter Additional Health Concerns Infection Onset Date Last Indicated Resolved Time COVID-19 10/08/2022 10/08/2022 10/29/2022 1:21 AM EDT Assessment Noted Time PHQ-2 Depression Total Score: 0 06/02/20 3:27 PM EST documented as of this encounter Care Teams Forest Management Professor Relationship Specialty Start Date End Date Marianela Farris MD, MPH [address] [place] [address] [email or web address] PCP - General Family Medicine 12/05/20 documented as of this encounter Additional Source Comments The information contained in this document represents components of the legal health record. It is not the complete legal health record.[facility]
--- OUTSIDE RECORDS SUMMARY | 2025-04-14 16:58 | XMS_ITS | Clinical Summary ---
Author Organization [facility] Address [address] [place] [phone] Phone Care Team Providers Care Tractor Technician Name Role Phone Marianela Farris MD, MPH Primary Care Provid er Allergies Active Allergy Reactions Criticality Noted Date Comments Latex Rash Low 05/12/2018 Medications diclofenac sodium (VOLTAREN) 1 % GelIndications:Carolina delcid osteoarthritis of right knee Apply 4 g topically 4 (four) times a day. To right foot 100 g 12/13/19 Active therapeutic multivitamin tablet Take 1 tablet by mouth daily. Active acetaminophen (TYLENOL) 325 mg tablet Take 3 tablets (975 mg total) by mouth 3 (three) times a day. May wean to an as needed basis if pain well controlled. Do not take more than 3000mg acetaminophen per day (including in other prescribed or koap-djt-gdbpseu medications). 0 05/17/20 Active Additional Information Patient taking differently: 650 mgOralEvery 6 hours PRN, May wean to an as needed basis if pain well controlled.Do not take more than 3000mg acetaminophen per day (including in other prescribed or tjik-efp-vfqrlwe medications)., Reported on 03/13/2024 amoxicillin (AMOXIL) 500 MG capsule Take 4 capsules (2,000 mg total) by mouth once as needed. Take 4 capsules one hour prior to any dental work or procedures. 12 capsule 1 06/17/20 23 Active amLODIPine (NORVASC) 10 MG tabletIndications: Primary hypertension take 1 tablet by mouth every day 90 tablet 3 09/10/19 24 Active nitroglycerin (NITRODUR) 0.1 mg/hr 1 PATCH TOPICALLY DAILY,X30 DAYS APPLY TO SKIN MAINTAIN A NITRATE-FREE INTERVAL OF 10 TO 12 HOURS 12/09/19 24 Active atorvastatin (LIPITOR) 80 MG tablet Take 1 tablet (80 mg total) by mouth daily. 90 tablet 3 02/03/20 24 Active losartan (COZAAR) 25 MG tablet Take 1 tablet (25 mg total) by mouth daily. 90 tablet 3 02/03/20 24 Active TOPROL XL 25 mg 24 hr tablet Take 1 tablet (25 mg total) by mouth daily. 90 tablet 3 02/05/20 24 Active aspirin 81 MG EC tablet Take 1 tablet (81 mg total) by mouth daily for 55 doses. 90 tablet 3 03/18/20 24 Active pantoprazole (PROTONIX) 40 MG tablet TAKE 1 TABLET BY MOUTH EVERY DAY 90 tablet 1 04/08/20 24 Active clopidogrel (PLAVIX) 75 mg tablet TAKE 1 TABLET BY MOUTH EVERY DAY 90 tablet 3 06/23/20 24 Active Active Problems Problem Noted Date Diagnosed Date Obesity (BMI 30.0-34.9) 03/18/2024 Chest pain in adult 03/13/2024 Assessment & Plan (03/13/2024 5:45 PM EDT): Patient has had episodic chest pain over the last few weeks. She describes this as epigastric, radiates beneath the left breast and ribs. Occurs both at rest and with movement. This is not similar to her pain when she had her NSTEMI, she had pain more in her back at that time. She has been taking omeprazole for this pain and has had some relief, but states her PCP sent her in today. She has history of NSTEMI back in November with cardiac cath showing disease of the LAD and left circumflex, stenting of mid circumflex and second obtuse marginal was performed at that time. She remains on dual antiplatelet therapy and has been attending cardiac rehab. Has been intolerant to Imdur Today her troponins are low with no delta, initially 16 then 8, EKG shows no change from previous, no acute ST segment elevation or depression, sinus rhythm. She is currently pain-free. Chest x-ray pending Cardiology recommended observation, echocardiogram, will trend cardiac enzymes and cardiology also recommended upping her beta-alex to 50 mg of Toprol-XL daily which we will do Assessment & Plan (03/13/2024 12:51 PM EDT): I was able to auscultate a grade 2 systolic murmur on exam that does not appear to have been noted on exams prior. She notes these symptoms are similar to her prior NSTEMI. ECG in office showed NSR with on ST abnormalities. Consulted with patient's PCP Dr. Farris, we both agreed that her symptoms should be further evaluated at the ER. Chest pain 03/13/2024 Atherosclerosis of pam[place]key co ronary artery of pamunkey heart without angina pectoris 01/05/2024 Assessment & Plan (03/13/2024 5:45 PM EDT): Cath in November showed disease of the LAD and left circumflex, stenting of mid circumflex and second obtuse marginal was performed at that time. She remains on dual antiplatelet therapy and has been attending cardiac rehab. S/P coronary artery stent placement 01/05/2024 Elevated coronary artery calcium score 4 Pure hypercholesterolemia 06/11/2023 Assessment & Plan (03/13/2024 5:45 PM EDT): Continue statin S/P total knee arthroplasty, right 05/15/2023 Family history of coronary a rtery disease occurring prior to 55 years of age 0803/04/2023 Assessment & Plan (03/04/2023 3:20 PM EDT): I do think Layla would benefit from more testing given her significant family history. I am ordering a stress test today. I am also referring to cardiology for recommendations around further risk stratification and management. Primary osteoarthritis of right knee 09/08/2021 Primary osteoarthritis of left knee 09/08/2021 Family history of brain aneurysm 09/05/2021 Overview (12/12/2022): Sister had burst aneurysm 08/2021, surgery found 2 additional aneurysms in brain Layla had normal MRA 2021 Syncope 02/24/2021 Assessment & Plan (02/24/2021 4:49 AM EDT): -We will monitor on telemetry overnight given this is now 2 episodes in 24 hour. -I will order an echocardiogram to rule out underlying structural heart disease, although I feel this is less likely -D-dimer is negative electrolytes are unremarkable EKG shows no signs of QT prolongation or Brugada which is all very reassuring -Her completely normal neurologic exam makes stroke exceedingly unlikely -Lack of any postictal presentation also makes seizure extremely unlikely By history this second episode seems most consistent with syncope secondary to hyperventilation/panic given classic perioral, hands and foot tingling sensation and patient self describing breathing very heavily prior to it as she worried significantly about waking up hemiplegic due to stroke Primary hypertension 02/24/2021 Assessment & Plan (03/13/2024 5:45 PM EDT): Will continue with usual antihypertensives and hold parameters, amlodipine, increased metoprolol and losartan. Normotensive in ED Assessment & Plan (03/04/2023 3:19 PM EDT): Improved control. Will continue to monitor in anticipation of a likely knee replacement surgery. Assessment & Plan (09/12/2021 12:14 PM EST): Improved. Cont current meds Assessment & Plan (05/24/2021 5:52 AM EDT): Not well controlled today or last recorded BP in ortho office. Increase amlodipine to 5mg Assessment & Plan (03/14/2021 10:09 AM EDT): BP improving and within goal now a few days after starting amlodipine. Continue current dose. Assessment & Plan (02/24/2021 4:50 AM EDT): Patient reports that she has been perseverating about her elevated blood pressure readings ever since going to urgent care on 02/20 She reports there she was told her blood pressure was systolic 150s and since then she has been very anxious and preoccupied about this. She reports she has a brother and hhkhne-uf-dov who have had serious strokes with resulting hemiplegia which she feels would be a terrible way to live her life, reporting she would rather of a stroke then have this result. I reassured her that a couple episodes of elevated blood pressure are very unlikely to lead to stroke but that follow-up with primary care is very important in stroke prevention and overall wellbeing. She reports she already has a PCP appointment on 02/28 and does plan to attend. Bunion of great toe of right foot 10/24/2020 Assessment & Plan (03/14/2021 10:19 AM EDT): Pt is wondering about other podiatrists at [facility] of which we don't have any. Recommend calling insurance to see what other local podiatrists are covered. Chronic pain in left foot 01/13/2020 Chronic pain in right foot 01/13/2020 Metatarsalgia of both feet 08/18/2019 Bunion 08/18/2019 Plantar fasciitis 08/18/2019 Flat foot 08/18/2019 Elevated fasting glucose 06/02/2019 Asymptomatic varicose veins of both lower extrem ities 04/14/2019 Assessment & Plan (03/14/2021 10:10 AM EDT): Cont to monitor Bilateral primary osteoarthritis of knee 019 Resolved Problems Problem Noted Date Diagnosed Date Resolved Date Infected abrasion of fourth toe of right foot 02/25/20 21 05/24/2021 Assessment & Plan (02/24/2021 5:01 AM EDT): Continue outpatient antibiotic as prescribed Toe appears feels improved and unremarkable Pain in right foot 08/18/2019 1 Pain in left foot 08/18/2019 05/24/2021 Immunizations Immunization Administration Dates Next Due COVID-19 (Pre-05/13) Moderna Vaccine, mRNA, PF 05/24/2021,09/16/2020,08/19/2020 Influenza Quadrivalent Prese rvative Free IM 04/26/2023,04/27/2022,04/20/2021,05/05,05/15/2018,04/23/2017,05/08/2016 ,05/09/2015 Influenza, Unspecified Formulation 04/02,04/02/2020,04/02/2020,05/28,05/16/2015,05/24/2014,04/21/2013 Meningococcal MCV4, unspecif ied Formulation 06/21/2014 Tdap 09/05/2021,06/21/2014 Zoster recombinant 12/12/2022,09/05/2021 Family History Medical History Relation Comments Heart attack Brother 1 Heart attack Brother 2 Asthma Father Breast cancer Maternal Aunt Breast cancer Maternal Cousin 1 Breast cancer Maternal Cousin 2 Hypertension Mother Breast cancer Paternal Cousin Aneurysm Sister 1 brain Coronary Artery Disease (female before age 65) S ister 2 Hypertension Sister 2 Hypertension Sister 3 Osteoarthritis Sister 3 Relation Status Comments Brother 1 Alive Brother 2 Alive lives in [place] Brother 3 Alive [facility]Age 65[facility] [place] Maternal Aunt Alive Maternal Cousin 1 Maternal Cousin 2 Mother Alive Paternal Cousin Sister 1 Alive actually first c ousin- father's brother and mother's cousin - she grew up with Layla Sister 2 Alive Sister 3 Alive infertility Sister 4 Alive Social History Tobacco Use Types Packs/Day Years Used Date Smoking Tobacco: Never Smokeless Tobacco: Never Tobacco Cessation:Counseling Given: Not Answered Alcohol Use Standard Drinks/Week Comments No 0 [...] high school, GED, job training, learning the Lithuanian language, technical skills, or developing parenting skills)? [...] Orientation Straight 11/04/2019 9: 13 AM EDT Last Filed Vital Signs Vital Sign Reading Time Taken Comments Blood Pressure 108/76 03/18/2024 4:54 PM EDT Pulse 75 03/18/2024 4:54 PM EDT Temperature 36.7 C (98 F) 03/18/2024 4:54 PM EDT Respiratory Rate 16 03/14/2024 1:23 PM EDT Oxygen Saturation 93% 03/18/2024 4:54 PM EDT Inhaled Oxygen Concentration - - Weight 86.2 kg (190 lb) 03/13/2024 12:28 PM EDT Height 160 cm (5' 3 ) 03/13/2024 12:28 PM EDT Body Mass Index 33.66 03/13/2024 12:28 PM EDT Plan of Treatment Health Maintenance Due Date Last Done Comments COLOGUARD 12/02/2007 FIT TEST 12/02/2007 FOBT 12/02/2007 SIGMOIDOSCOPY 12/02/2007 VIRTUAL COLONOSCOPY 12/02/2007 PNEUMOCOCCAL VACCINES (50+ years) (1 of 1 - PCV) 2012 PAP SMEAR 06/02/2022 06/02/2019, 06/02/2019 BLOOD PRESSURE 09/18/2024 03/18/2024 INFLUENZA VACCINE (#1) 2025 , 04/27/2022, 04/20/2021, Additional history exists CREATININE LEVEL 03/14/2025 03/14/2024, , 12/08/2023, Additional history exists POTASSIUM LEVEL 03/14/2025 03/14/2024, 02/20, 12/08/2023, Additional history exists DEPRESSION SCREENING 03/18/2025 03/18/2024, 03/18/20 COVID-19 VACCINE ( season) 2025 05/24/2021, 09/16/2020, 08/19/2020 MAMMOGRAM 01/01/2026 01/02/2024, 07/23, 08/08/2021, Additional history exists SCREENING FOR DIABETES 03/14/2027 03/14/2024, 2023 COLONOSCOPY 05/19/2028 05/19/2018 COLORECTAL CANCER SCREENING 05/19/2028 Adult Td,Tdap Booster 09/05/2031 09/05/2021, 014 RSV VACCINE (1 - 1-dose 75+ series) 2037 MENINGOCOCCAL VACCINES (ACWY) Aged Out 06/21/2014 No longer eligible based on patient's age to complete this topic ZOSTER VACCINES Completed 12/12/2022, 09/05/2021 HEPATITIS C SCREENING Completed 12/14/2022 HIV ONE-TIME SCREENING (18-65 YEARS) Completed 12/14/2022 SMOKING STATUS SCREENING (Once After 26 Yrs) Completed 03/18/2024 HEPATITIS A VACCINES Aged Out No long er eligible based on patient's age to complete this topic HIB VACCINES Aged Out No longer eligi ble based on patient's age to complete this topic MENINGOCOCCAL VACCINES (B) Aged Out N o longer eligible based on patient's age to complete this topic Medical Devices Implanted Type Area Fleet Assistant Device Identifier Shelf Expiration Date Model / Serial / Lot Knee Baseplate Size 1 Tibial Legion Titanium Alloy Nonporous Right - [id number] Implanted:Qty: 1 on 05/14/2023 by Faheem Cabrera MD at [facility] Right: Knee TRIPATHI [id number] 01/07/2032 [id number] / / [id number] Description:The implant type , laterality (when applicable), size, and expiration date have been visually and verbally confirmed by the Surgeon, Circulating RN and Scrub Personnel. Cement Bone 40g Simplex P Demineralized Matrix Radiopaque Void Filler Full Dose Single Vial Bx/10ea - [id number] Implanted:Qty: 1 on 05/14/2023 by Faheem Cabrera MD at [facility] Right: Knee [employer] [id number] 07/21/2025 6191-1-001 / / [id number] Description:The implant type , laterality (when applicable), size, and expiration date have been visually and verbally confirmed by the Surgeon, Circulating RN and Scrub Personnel. Cement Bone 40g Simplex P Demineralized Matrix Radiopaque Void Filler Full Dose Single Vial Bx/10ea - [id number] Implanted:Qty: 1 on 05/14/2023 by Faheem Cabrera MD at [facility] Right: Knee [employer] [id number] 07/21/2025 6191-1-001 / / [id number] Description:The implant type , laterality (when applicable), size, and expiration date have been visually and verbally confirmed by the Surgeon, Circulating RN and Scrub Personnel. Knee Implant Sz 4 Component Femoral Legion Oxinium Oxidized Zirconium Narrow Cruciate Retaining Rt N - [id number] Implanted:Qty: 1 on 05/14/2023 by Faheem Cabrera MD at [facility] Right: Knee BHUMI [id number] 12/07/2032 [id number] / / [id number] Description:The implant type , laterality (when applicable), size, and expiration date have been visually and verbally confirmed by the Surgeon, Circulating RN and Scrub Personnel. Knee Implant 26mm Patella Resurfacing Karuna Ii - [id number] Implanted:Qty: 1 on 05/14/2023 by Faheem Cabrera MD at [facility] Right: Knee BHUMI [id number] 03/29/2033 [id number] / / [id number] Description:The implant type , laterality (when applicable), size, and expiration date have been visually and verbally confirmed by the Surgeon, Circulating RN and Scrub Personnel. Knee Insert 2 10mm Sz 1 Legion Cr High Flex Xlpe - [id number] Implanted:Qty: 1 on 05/14/2023 by Faheem Cabrera MD at [facility] Right: Knee BHUMI [id number] 09/24/2032 [id number] / / [id number] Description:The implant type , laterality (when applicable), size, and expiration date have been visually and verbally confirmed by the Surgeon, Circulating RN and Scrub Personnel. Procedures Procedure Name Priority Date/Time Associated Diagnosis Comments COMPREHENSIVE METABOLIC PANEL Routine 03/14/2024 5:32 AM EDT BI MAMMOGRAM DIAGNOSTIC WITH TOMOSYNTHESIS WITH CAD (BILATERAL) Routine 01/02/2024 10:11 AM EDT Breast pain, right HEPATITIS C ANTIBODY, QUALITATIVE Routine 12/14/2022 8:26 AM EDT Need for hepatitis C screening test PAP TEST Routine 06/02/2019 12:00 AM EST ENDOSCOPY, COLON 05/19/2018 2:51 PM EDT from Last 3 Months or Most Recently Relevant to Health Maintenance Results * (ABNORMAL) Comprehensive metabolic panel (03/14/2024 5:32 AM EDT) SODIUM 142 133 - 146 mmol/L [facility] POTASSIUM 4.5 3.3 - 5.1 mmol/L [facility] Comment:Specimen slightly he molyzed, result may be falsely elevated. CHLORIDE 105 96 - 108 mmol/L [facility] CO2 23 21 - 35 mmol/L [facility] BUN 16 6 - 19 mg/dL [facility] CREATININE 0.60 0.5 - 1.5 mg/dL [facility] GLUCOSE 121(H) 70 - 99 mg/dL [facility] ALBUMIN 3.7(L) 3.9 - 4.8 g/dL [facility] TOTAL PROTEIN 6.6 6.5 - 8.0 g/dL [facility] CALCIUM 8.7 8.4 - 10.3 mg/dL [facility] ALKALINE PHOSPHATASE 79 39 - 117 U/L [facility] TOTAL BILIRUBIN 0.7 0.0 - 1.2 mg/dL [facility] AST 43(H) 0 - 37 U/L [facility] ALT 39 0 - 40 U/L [facility] GLOBULIN 2.9 1 - 4.8 g/dL [facility] EGFR 102 >59 mL/min/1.7 3m2 [facility] Comment:Estimated glomerular filtration rate calculated using the CKD-EPI refit equation. ANION GAP 19 10 - 20 mmol/L [facility] Blood 03/14/2024 5:32 AM EDT 03/14/2024 5:57 AM EDT us Allie Ponce NP LAB BLOOD ORDERABLES Fi nal Result [facility] [address] [place] [address] * BI MAMMOGRAM DIAGNOSTIC WITH TOMOSYNTHESIS WITH CAD (BILATERAL) (01/02/2024 10:11 AM EDT) Anatomical Region Laterality Modality Breast Left, Breast Right, Breast Bilateral Bila teral Mammography 01/02/2024 11:5 3 AM EDT Impressions 01/02/2024 11:54 AM EDT 1. No imaging findings to account for the clinical symptoms of right breast pain. Management of breast pain should be based on the level of clinical concern. Negative imaging findings should not preclude biopsy of any clinically suspicious finding. 2. No mammographic evidence of malignancy in the left breast. BI-RADS 1 NEGATIVE Results and recommendations were communicated to the patient at time of examination. Narrative 01/02/2024 11:54 AM EDT BI MAMMOGRAM DIAGNOSTIC WITH TOMOSYNTHESIS WITH CAD (BILATERAL), BI US BREAST LIMITED (RIGHT) Additional patient information: Right breast pain. COMPARISON: Comparison is made with relevant prior imaging. Breast composition: There are scattered areas of fibroglandular density. FINDINGS: Right Mammogram: There is no focal or suspicious mammographic correlate for the area of clinical concern. No abnormal masses, suspicious calcifications, or other significant findings are identified mammographically in the right breast. Right Ultrasound: Targeted ultrasound was performed in the area of clinical concern as indicated by the patient. No sonographic abnormality is seen. Left Mammogram: No abnormal masses, suspicious calcifications, or other significant findings are identified mammographically in the left breast. There is no change since previous examination. Procedure Note Allie Carmichael MD - 01/02/2024 BI MAMMOGRAM DIAGNOSTIC WITH TOMOSYNTHESIS WITH CAD (BILATERAL), BI USBREAST LIMITED (RIGHT) Additional patient information: Right breast pain. COMPARISON: Comparison is made with relevant prior imaging. Breast composition: There are scattered areas of fibroglandular density. FINDINGS: Right Mammogram: There is no focal or suspicious mammographic correlate for the area ofclinical concern. No abnormal masses, suspicious calcifications, or othersignificant findings are identified mammographically in the rightbreast. Right Ultrasound: Targeted ultrasound was performed in the area ofclinical concern as indicated by the patient. No sonographic abnormalityis seen. Left Mammogram: No abnormal masses, suspicious calcifications, or other significantfindings are identified mammographically in the left breast. There is nochange since previous examination. IMPRESSION: 1. No imaging findings to account for the clinical symptoms of rightbreast pain. Management of breast pain should be based on the level ofclinical concern. Negative imaging findings should not preclude biopsy ofany clinically suspicious finding. 2. No mammographic evidence of malignancy in the left breast. BI-RADS 1 NEGATIVE Results and recommendations were communicated to the patient at time ofexamination. us Marianela Farris MD, MPH IMG MG EXAMS Brielle l Result * Hepatitis C antibody, qualitative (12/14/2022 8:26 AM EDT) HCV NON-REACTIV E NON-REACTI VE [facility] Blood 12/14/2022 8:26 AM EDT 12/14/2022 8:31 AM EDT aMrianela Farris MD, MPH LAB BLOOD ORDERABLES Final Result Performing Organization Address City/State/[facility] Co de Phone Number [address] [phone] * Pap Smear (06/02/2019 12:00 AM EST) 06/02/2019 06/03/2019 3:3 6 PM EST Narrative SEE NARRATIVE - 06/17/2019 12:06 [place] [address] [facility] Cytology Report Patient Name: LAYLA RIVERA : 1960 (Age: 58) Sex: F Institution: [facility] Location: [facility] Date of Collection: 06/02/2019 Date of Reported: 06/17/2019 12:06 Results to: Germania Ruffin DO FINAL DIAGNOSIS A. VAGINAL, LIQUID BASED SPECIMEN: SPECIMEN ADEQUACY: Satisfactory for evaluation. INTERPRETATION: NEGATIVE FOR INTRAEPITHELIAL LESION OR MALIGNANCY. ADDITIONAL INFORMATION: Atrophic changes present. A manual review was performed for Tank Driver purposes. This specimen was prescreened using the Auto Secure Imaging System. Electronically Signed Out By: Carlos Bishop SCT(ASCP)RAY PITTS(ASCP)RAY Cervical cytology is a screening test primarily for squamous cancers and precursors and has associated false-negative and false-positive results. New technologies such as liquid-based preparations may decrease but will not eliminate all false-negative results. Regular sampling and follow-up of unexplained clinical signs and symptoms are recommended to minimize false negative results. PROCEDURES/ADDENDA HPV Testing (Requested) Ordered Date: 06/03/2019 A. VAGINAL, LIQUID BASED SPECIMEN: Human Papilloma Virus Test Negative for high-risk human papillomavirus types 16, 18, 45 and the Other high risk probe set (Includes 31, 33, 35, 39, 51, 52, 56, 58, 59, 66, 68) by [employer] Onclarity HR-HPV analysis. Clinical correlation is advised. This HPV test was performed at [facility], [address] [place] [address]. This test has been FDA approved for [employer]Path cervical cytology specimens. The accuracy and precision of this test for all other specimen sources has been verified in the Cytopathology Laboratory of the [facility] and has not been cleared or approved by the U.S. Food and Drug Administration. Clinical correlation is advised. CLINICAL HISTORY Date of Last Menstrual Period: Menstrual History: No LMP given Other Clinical Conditions: Screening Pap SPECIMEN SOURCE A: VAGINAL, LIQUID BASED SPECIMEN us Germania Ruffin DO CYTOLOGY ORDERABLES Final Result SEE NARRATIVE * ENDOSCOPY, COLON (05/19/2018 2:51 PM EDT) Narrative Transcriptions Pasquale Melendez MD - 05/19/2018 2:51 PM EDT Patient Name: Layla Miguel Nazario MD:: PASQUALE MELENDEZ MD, Procedure Date: 05/19/2018 2:51 PM Date of : 1960 Age: 57 Admit Type: Outpatient Gender: Female Room: [place] [address] Referring MD: Anjelica Chauhan Exam Type: Colonoscopy Indications: Screening for colorectal malignant neoplasm Medications: Monitored Anesthesia Care Procedure: Informed consent was obtained from the patient after discussion of the indications, limitations,alternatives, benefits, and risks of the procedure. Risksspecifically discussed include but are not limited to medication reactions, missed lesions, bleeding, perforation, orthe need for emergent surgery. Throughout the procedure, the patient's blood pressure, pulse, end-tidal CO2, and oxygen saturations were monitored continuously. The Olympus pediatric variable colonoscope [id number]-[id number]#1 was introduced through the anus and advanced to thececum, identified by appendiceal orifice and ileocecal valve.The colonoscopy was performed without difficulty. Thepatient tolerated the procedure well. The quality of the bowel preparation was excellent. The quality of the bowel preparation was evaluated using the BBPS ([place] Bowel Preparation Scale) with scores of: Right Colon = 3, Transverse Colon = 3 and Left Colon = 3 (entire mucosa seen well with no residual staining, small fragments of stool or opaque liquid). The total BBPS score equals9. Complications: No immediate complications. Estimated blood loss:None. Findings: The perianal and digital rectal examinations werenormal. Internal hemorrhoids were found during retroflexion.The hemorrhoids were small. No other significant abnormalities were identified in a careful examination of the remainder of the colon. Impression: - Internal hemorrhoids. - No specimens collected. Recommendation: - Discharge patient to home. - Repeat colonoscopy in 10 years for screeningpurposes. PASQUALE MELENDEZ MD, 05/19/2018 3:11:30 PM This report has been signed electronically. Number of Addenda: 0 Note Initiated On: 05/19/2018 2:51 PM Procedure Code(s): --- Professional --- 36677, Colonoscopy, flexible; diagnostic, including collection of specimen(s) by brushing or washing, when performed (separateprocedure) --- Technical --- 14142, Colonoscopy, flexible; diagnostic, including collection of specimen(s) by brushing or washing, when performed (separateprocedure) Diagnosis Code(s): --- Professional --- K64.8, Other hemorrhoids Z12.11, Encounter for screening for malignant neoplasm of colon --- Technical --- K64.8, Other hemorrhoids Z12.11, Encounter for screening for malignant neoplasm of colon CPT copyright 2016 [employer]. All rights reserved. The codes documented in this report are preliminary and upon survey manager reviewmay be revised to meet current compliance requirements. [address] [place] [address] Anjelica Chauhan MD GI PROCEDURE ORDERABLES Esdras sylwia Result - Final from Last 3 Months or Most Recently Relevant to Health Maintenance Insurance [employer] [facility] [employer]MIN[employer]ATORS [facility] [employer] Advance Directives For more information, please contact: [phone] (9AM - 5PM Constance/[facility], Saturday-Saturday) Documents on File Type Date Recorded Patient Geriatric Social Worker Expl anation Healthcare Proxy 02/27/2021 1:52 PM * Full Code (Latest Code Status on File) Date Activated Date Inactivated Comments 03/13/2024 6:53 PM Question Answer Comments Code Status Confirmed With: Other (specify below ) * Full Code Date Activated Date Inactivated Comments 02/24/2021 6:04 AM 03/13/2024 6:53 PM Question Answer Comments Code Status Confirmed With: Patient Care Teams Tractor Technician Relationship Specialty Start Date End Date Marianela Farris MD, MPH [address] [place] [address] [email or web address] PCP - General Family Medicine 12/05/20 Additional Source Comments The information contained in this document represents components of the legal health record. It is not the complete legal health record.[facility]
--- OUTSIDE RECORDS SUMMARY | 2025-04-14 16:58 | XMS_ITS | Encounter Summary ---
Author Organization [facility] Address [address] [place] [address] [place] [address] Phone Care Team Providers Care Multiple Sclerosis Nurse Name Role Phone Marianela Farris MD, MPH Primary Care Provid er Encounter Details Date Type Department Care Team (Late st Contact Info) Description 03/19/2023 Ancillary Orders [address] [id number] Celso Salazar MD [address] [place] [address] Orthopedics & Sports Medicine, [place], [place] [id number] [email or web address] Pain in both knees, unspecified chronicity Social History Tobacco Use Types Packs/Day Years [...] XR KNEE 4 OR MORE VIEWS (BILATERAL) (03/19/2023 1:42 PM EDT) Narrative SYSTEMGENERATED, DOCUMENTATION - 03/19/2023 1:42 PM EDT This image report has been auto-finalized and has not been read by a Radiologist. Interpretation has been included in the provider encounter note for this date of service. us Celso Salazar MD IMG XR LOWER EXTREMITY Final Result documented in this encounter Visit Diagnoses Diagnosis Pain in both knees, unspecified chronicity Pain in both knees, unspecified chronicity documented in this encounter Additional Health Concerns Assessment Noted Time PHQ-2 Depression Total Score: 0 06/02/20 19 3:27 PM EST documented as of this encounter Care Teams Multiple Sclerosis Nurse Relationship Specialty Start Date End Date Marianela Farris MD, MPH [address] [place], [place] [id number] [email or web address] PCP - General Family Medicine 12/05/20 documented as of this encounter Additional Source Comments The information contained in this document represents components of the legal health record. It is not the complete legal health record.[facility]
--- OUTSIDE RECORDS SUMMARY | 2025-04-14 16:58 | XMS_ITS | Encounter Summary ---
Author Organization [facility] Address [address] [place] [address] [place] [address] Phone Care Team Providers Care Lumber Stacker Driver Name Role Phone Germania Ruffin DO Primary Care Provider [phone]- [phone] Germania Ruffin DO Primary Care Provider [phone]- [phone] Uyen Vivas MD Primary Care Provider [phone] Marianela Farris MD, MPH Primary Care Provid er Encounter Details Date Type Department Care Team (Late st Contact Info) Description 01/26/2020 Ancillary Orders [facility] Podiatry [address] [place] [address] Areli Becerra DPM 10 [facility] [address] [place] [address] [email or web address] Chronic pain in left foot Social History Tobacco Use Types Packs/Day Years [...] as of this encounter Results * XR FOOT 3 OR MORE VIEWS (BILATERAL) (01/26/2020 3:44 PM EDT) Anatomical Region Laterality Modality Foot Left Computed Radiogr aphy 01/28/2020 8:27 AM EDT Impressions 01/28/2020 2:15 PM EDT Moderate to severe hallux abductovalgus deformity, bilaterally. Pes planovalgus deformity bilaterally; right foot greater than left foot. Enthesopathy at the bilateral Achilles tendon insertions. Bilateral plantar heel spur noted. Mid tarsal joint collapse with mild spurring bilaterally. Narrative 01/28/2020 2:15 PM EDT Reason for exam (per EHR order): Patient is considering surgical correction of bilateral bunion deformity. TECHNIQUE: AP, lateral, and oblique radiograph of each foot; Weight-bearing in nature COMPARISON: None. FINDINGS: Left Foot: On AP, there is a moderately large bunion deformity noted to the first metatarsophalangeal joint. Tibial sesamoid position is approximately a 5. There does not appear to be any rotational defect noted to the hallux itself. There is mild adductovarus deformity of the fourth and fifth digits. There is significant obliquity of the metatarsal cuneiform joints. On oblique, there is some evidence of dorsal metatarsal head bony hypertrophy noted to the first metatarsophalangeal joint. Tibial sesamoid appears arthrosis. There are several benign cysts in the head of the left first metatarsal. There is mild enthesopathy of the Achilles tendon insertion. On lateral, there is evidence of pes planovalgus with anterior break of the cyma line, increase in talar declination, decrease in calcaneal inclination, and midtarsal joint collapse. There is some spurring noted to the dorsum of the mid tarsal joint. There is evidence of plantar and posterior heel spurring. Right Foot: On AP, there is a moderately large bunion deformity noted to the first metatarsophalangeal joints. Tibial sesamoid position is approximately a 6. There is some evidence of likely arthrosis of the sesamoid apparatus. Tibial sesamoid is distinctly smaller in size than the fibular. There appears to be very mild rotational deformity of the hallux. There is adductovarus deformity of the fourth and fifth digits noted. On oblique, there is evidence of dorsal metatarsal head bony hypertrophy to the first metatarsal. Sesamoid apparatus appears arthrosis. There is mild enthesopathy of the insertion of the Achilles tendon. On lateral, there is evidence of pes planovalgus with anterior break of the cyma line, increased talar declination, decrease in calcaneal inclination, and midtarsal joint collapse. This is not a significant pes planus as on the contralateral foot. There is mild spurring of the metatarsal joint dorsally. There is plantar and posterior heel spurring. Procedure Note Areli Becerra DPM - 01/28/2020 Reason for exam (per EHR order): Patient is considering surgicalcorrection of bilateral bunion deformity. TECHNIQUE: AP, lateral, and oblique radiograph of each foot;Weight-bearing in nature COMPARISON: None. FINDINGS: Left Foot: On AP, there is a moderately large bunion deformity noted tothe first metatarsophalangeal joint. Tibial sesamoid position isapproximately a 5. There does not appear to be any rotational defect notedto the hallux itself. There is mild adductovarus deformity of the fourthand fifth digits. There is significant obliquity of the metatarsalcuneiform joints. On oblique, there is some evidence of dorsal metatarsalhead bony hypertrophy noted to the first metatarsophalangeal joint. Tibialsesamoid appears arthrosis. There are several benign cysts in the head ofthe left first metatarsal. There is mild enthesopathy of the Achillestendon insertion. On lateral, there is evidence of pes planovalgus withanterior break of the cyma line, increase in talar declination, decreasein calcaneal inclination, and midtarsal joint collapse. There is somespurring noted to the dorsum of the mid tarsal joint. There is evidence ofplantar and posterior heel spurring. Right Foot: On AP, there is a moderately large bunion deformity noted tothe first metatarsophalangeal joints. Tibial sesamoid position isapproximately a 6. There is some evidence of likely arthrosis of thesesamoid apparatus. Tibial sesamoid is distinctly smaller in size than thefibular. There appears to be very mild rotational deformity of the hallux.There is adductovarus deformity of the fourth and fifth digits noted. Onoblique, there is evidence of dorsal metatarsal head bony hypertrophy tothe first metatarsal. Sesamoid apparatus appears arthrosis. There is mildenthesopathy of the insertion of the Achilles tendon. On lateral, there isevidence of pes planovalgus with anterior break of the cyma line,increased talar declination, decrease in calcaneal inclination, andmidtarsal joint collapse. This is not a significant pes planus as on thecontralateral foot. There is mild spurring of the metatarsal jointdorsally. There is plantar and posterior heel spurring. 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 Pesplanovalgus deformity bilaterally; right foot greater than left foot.Enthesopathy at the bilateral Achilles tendon insertions. Bilateralplantar heel spur noted. Mid tarsal joint collapse with mild spurringbilaterally. Areli Becerra DPM IMG XR LOWER EXTRE MITY Final Result documented in this encounter Visit Diagnoses Diagnosis Chronic pain in left foot Chronic pain in left foot documented in this encounter Additional Health Concerns Infection Onset Date Last Indicated Resolved Time CoV-Exposed Comment:Recent close contact documented in the Travel/Symptom Screening Form 02/18/2021 02/24/2021 03/05/2021 1:25 AM E DT COVID-19 10/08/2022 10/08/2022 10/29/2022 1:21 AM EDT Assessment Noted Time PHQ-2 Depression Total Score: 0 06/02/20 3:27 PM EST documented as of this encounter Care Teams Lumber Stacker Driver Relationship Specialty Start Date End Date Germania Ruffin DO [address] [place] [address] [email or web address] PCP - General Family Medicine 03/30/19 08/09/20 Germania Ruffin DO [address] [place] [address] [email or web address] PCP - General Family Medicine 08/10/20 11/24/20 Uyen Vivas MD [address] [address] [email or web address] PCP - General Family Medicine 11/25/20 12/04/20 Marianela Farris MD, MPH [address] [address] [email or web address] PCP - General Family Medicine 12/05/20 documented as of this encounter Additional Source Comments The information contained in this document represents components of the legal health record. It is not the complete legal health record.[facility]
--- OUTSIDE RECORDS SUMMARY | 2025-04-14 16:58 | XMS_ITS | Encounter Summary ---
Author Organization [facility] Address [address] [place] [address] Phone Care Team Providers Care Intermodal Dispatcher Name Role Phone Germania Ruffin DO Primary Care Provider [phone]- [phone] Germania Ruffin DO Primary Care Provider [phone]- [phone] Uyen Vivas MD Primary Care Provider Marianela Farris MD, MPH Primary Care Provid er Encounter Details Date Type Department Care Team (Late st Contact Info) Description 05/16/2020 Ancillary Orders [facility] Medicine [address] [place] [address] Germania Ruffin, DO [address] [place] [address] [email or web address] Breast screening Social History Tobacco Use Types Packs/Day Years [...] MAMMOGRAM SCREENING WITH TOMOSYNTHESIS WITH CAD (BILATERAL) (07/12/2020 2:13 PM EST) Anatomical Region Laterality Modality Breast Left, Breast Right, Breast Bilateral Bila teral Mammography 07/12/2020 3:21 PM EST Impressions 07/12/2020 3:23 PM EST No mammographic change indicative of malignancy. Routine screening is recommended. BI-RADS CATEGORY: 1 - Negative. DENSITY: There are scattered fibroglandular densities. Narrative 07/12/2020 3:23 PM EST Bilateral full-field digital screening mammography is obtained and read in conjunction with computer-aided detection. Tomosynthesis as well as 2-D C view imaging of both breasts in two planes also obtained. Comparison made to multiple prior, most recent May 01, 2019, and most remote June 20, 2011. No dominant mass, architectural distortion, worrisome asymmetry, or suspicious calcification is identified. No skin or nipple finding of concern is appreciated. Procedure Note Dante Herrera MD - 07/12/2020 Bilateral full-field digital screening mammography is obtained and read inconjunction with computer-aided detection. Tomosynthesis as well as 2-D Cview imaging of both breasts in two planes also obtained. Comparison madeto multiple prior, most recent May 01, 2019, and most remote 2010. No dominant mass, architectural distortion, worrisome asymmetry, orsuspicious calcification is identified. No skin or nipple finding ofconcern is appreciated. IMPRESSION: No mammographic change indicative of malignancy. Routine screening isrecommended. BI-RADS CATEGORY: 1 - Negative. DENSITY: There are scattered fibroglandular densities. us Germania Ruffin DO IMG MG EXAMS Final Resu lt documented in this encounter Visit Diagnoses Diagnosis Breast screening Breast screening, unspecified Breast screening Breast screening, [...] documented as of this encounter Care Teams Intermodal Dispatcher Relationship Specialty Start Date End Date Germania Ruffin DO [address] [place] [address] [email or web address] PCP - General Family Medicine 03/30/19 08/09/20 Germania Ruffin DO [address] [place] [address] [email or web address] PCP - General Family Medicine 08/10/20 11/24/20 Uyen Vivas MD [address] [place] [address] PCP - General Family Medicine 11/25/20 12/04/20 Marianela Farris MD, MPH [address] [place] [address] [email or web address] PCP - General Family Medicine 12/05/20 documented as of this encounter Additional Source Comments The information contained in this document represents components of the legal health record. It is not the complete legal health record.[facility]
--- OUTSIDE RECORDS SUMMARY | 2025-04-14 16:58 | XMS_ITS | Encounter Summary ---
Author Organization [facility] Address [address] [place] [address] Phone Care Team Providers Care Pullman Car Clerk Name Role Phone Marianela Farris MD, MPH Primary Care Provid er Encounter Details Date Type Department Care Team (Late st Contact Info) Description 09/24/2023 Procedure Pass Non-Invasive Cardiology [address] [place] [address] Social History Tobacco Use Types Packs/Day Years [...] documented as of this encounter Care Teams Pullman Car Clerk Relationship Specialty Start Date End Date Marianela Farris MD, MPH [address] [place] [address] [email or web address] PCP - General Family Medicine 12/05/20 documented as of this encounter Additional Source Comments The information contained in this document represents components of the legal health record. It is not the complete legal health record.[facility]
--- OUTSIDE RECORDS SUMMARY | 2025-04-14 16:58 | XMS_ITS | Encounter Summary ---
Author Organization [facility] Address [address] [place] [address] Phone Care Team Providers Care Rn Hemodialysis Name Role Phone Marianela Farris MD, MPH Primary Care Provid er Encounter Details Date Type Department Care Team (Late st Contact Info) Description 11/12/2023 Procedure Pass [facility], [address] [place] [address] Social History Tobacco Use Types Packs/Day Years [...] - Inhaled Oxygen Concentration - - Weight 81.6 kg (180 lb) 11/12/2023 4:49 PM EDT Height 160 cm (5' 3 ) 11/12/2023 4:49 PM EDT Body Mass Index 31.89 11/12/2023 4:49 PM EDT documented in this encounter Plan of Treatment Not on file documented as of this encounter Visit Diagnoses Not on filedocumented in this encounter Additional Health Concerns Assessment Noted Time PHQ-2 Depression Total Score: 0 06/02/20 19 3:27 PM EST documented as of this encounter Care Teams Rn Hemodialysis Relationship Specialty Start Date End Date Marianela Farris MD, MPH [address] [place] [address] [email or web address] PCP - General Family Medicine 12/05/20 documented as of this encounter Additional Source Comments The information contained in this document represents components of the legal health record. It is not the complete legal health record.[facility]
--- OUTSIDE RECORDS SUMMARY | 2025-04-14 16:58 | XMS_ITS | Encounter Summary ---
Author Organization [facility] Address [address] [place] [address] Phone Care Team Providers Care Section Supervisor Name Role Phone Germania Ruffin DO Primary Care Provider [phone]- [phone] Germania Ruffin DO Primary Care Provider +1- [phone] Uyen Vivas MD Primary Care Provider +1- [phone] Marianela Farris MD, MPH Primary Care Provid er Encounter Details Date Type Department Care Team (Late st Contact Info) Description 04/15/2019 Ancillary Orders [facility],Outside Imaging [address] [place] [address] System, Provider Not In, [place] [address] Social History Tobacco Use Types Packs/Day Years Used Date Smoking Tobacco: Never Smokeless Tobacco: Never Alcohol Use Standard Drinks/Week Comments No 0 (1 standard drink = 0.6 oz pur e alcohol) Comments Unknown Sex and Gender Information Value Date Recorded Sex Assigned at Female 03/13/2024 12:29 PM EDT Legal Sex Female 4:27 PM EST Gender Identity Female 04/18/2022 2:21 PM EDT Sexual Orientation Straight 11/04/2019 9: 13 AM EDT documented as of this encounter Plan of Treatment Not on file documented as of this encounter Results * Mammogram Outside (No Interpretation) (11/12/2016 12:00 AM EDT) Narrative SYSTEMGENERATED, DOCUMENTATION - 04/15/2019 8:23 AM EDT This study is for PACS storage only and not for interpretation. us Provider Not In System PhD IMG OUTSIDE IMAGING W /OUT INTERPRETATION Final Result documented in this encounter Visit Diagnoses Not on filedocumented in this encounter Additional Health Concerns Infection Onset Date Last Indicated Resolved Time CoV-Risk 11/04/2019 11/04/2019 11/04/2019 1:48 PM EDT COVID-19 11/04/2019 12/09/2019 12/11/2019 10:0 1 AM EDT CoV-Recovered Comment:Patient has recovered from COVID-19. Contact infection control with any questions 01/05/2020 01/05/2020 01/07/2020 1:24 AM E DT CoV-Exposed Comment:Recent close contact documented in the Travel/Symptom Screening Form 02/18/2021 02/24/2021 03/05/2021 1:25 AM E DT COVID-19 10/08/2022 10/08/2022 10/29/2022 1:21 AM EDT Assessment Noted Time PHQ-2 Depression Total Score: 0 04/13/20 19 4:14 PM EDT documented as of this encounter Care Teams Section Supervisor Relationship Specialty Start Date End Date Germania Ruffin DO [address] [place] [phone] [email or web address] PCP - General Family Medicine 03/30/19 08/09/20 Germania Ruffin DO [address] [place] [phone] [email or web address] PCP - General Family Medicine 08/10/20 11/24/20 Uyen Vivas MD [address] [place], [place] [id number] [email or web address] PCP - General Family Medicine 11/25/20 12/04/20 Marianela Farris MD, MPH [address] [place] [address] [email or web address] PCP - General Family Medicine 12/05/20 documented as of this encounter Additional Source Comments The information contained in this document represents components of the legal health record. It is not the complete legal health record.[facility]
--- OUTSIDE RECORDS SUMMARY | 2025-04-14 16:58 | XMS_ITS | Encounter Summary ---
Author Organization [facility] Address [address] [place] [address] [place] [phone] Phone Care Team Providers Care Copy Operator Name Role Phone Marianela Farris MD, MPH Primary Care Provid er Encounter Details Date Type Department Care Team (Late st Contact Info) Description 09/18/2023 Procedure Pass [facility] PERIOPERATIVE DEPT [address] [place] [address] Social History Tobacco Use Types [...] documented as of this encounter Care Teams Copy Operator Relationship Specialty Start Date End Date Marianela Farris MD, MPH [address] [place] [address] [email or web address] PCP - General Family Medicine 12/05/20 documented as of this encounter Additional Source Comments The information contained in this document represents components of the legal health record. It is not the complete legal health record.[facility]
--- OUTSIDE RECORDS SUMMARY | 2025-04-14 16:58 | XMS_ITS | Encounter Summary ---
Author Organization [facility] Address [address] [place] [address] [place] [address] Phone Care Team Providers Care Purchaser Name Role Phone Marianela Farris MD, MPH Primary Care Provid er Encounter Details Date Type Department Care Team (Late st Contact Info) Description 03/19/2023 Ancillary Orders [facility] Orthopedics & Sports Medicine [address] [place] [address] [phone] Celso Salazar MD [address] [place] [address] Orthopedics & Sports Medicine, [facility] [place], [place] [id number] Social History Tobacco Use Types Packs/Day Years [...] documented as of this encounter Care Teams Purchaser Relationship Specialty Start Date End Date Marianela Farris MD, MPH [address] [place] [address] [email or web address] PCP - General Family Medicine 12/05/20 documented as of this encounter Additional Source Comments The information contained in this document represents components of the legal health record. It is not the complete legal health record.[facility]
--- OUTSIDE RECORDS SUMMARY | 2025-04-14 16:58 | XMS_ITS | Encounter Summary ---
Author Organization [facility] Address [address] [place] [address] [place] [address] Phone Care Team Providers Care Dice Spotter Name Role Phone Marianela Farris MD, MPH Primary Care Provid er Encounter Details Date Type Department Care Team (Late st Contact Info) Description 04/18/2021 Procedure Pass [address] [address] Social History Tobacco Use Types Packs/Day Years [...] documented as of this encounter Care Teams Dice Spotter Relationship Specialty Start Date End Date Marianela Farris MD, MPH [address] [place] [address] [email or web address] PCP - General Family Medicine 12/05/20 documented as of this encounter Additional Source Comments The information contained in this document represents components of the legal health record. It is not the complete legal health record.[facility]
--- OUTSIDE RECORDS SUMMARY | 2025-04-14 16:58 | XMS_ITS | Patient Health Record ---
Author Organization [facility] [place] Address [address] [place] [address] Care Team Providers Care Aircraft Log Clerk Name Role Phone Germania Ruffin Primary Care Provider Kelvin Sullivan Unavailable [phone] Allergies Allergen (clinical drug ingredient) Drug/Non Drug [...] Insured Coverage Start Date Coverage End Date [facility] [address] [place] [id number] Brittani Mello Self - patient is the insured Medical (General) History Medical History History ICD Code asthma Back,Hip,and Knee pain Measles Mumps Chicken pox osteoarthritis Varicose veins Bunion Plantar fasciitis Surgical History Surgery Date(Month/Year) section 1993, 1996 appendectomy 2006
--- OUTSIDE RECORDS SUMMARY | 2025-04-14 16:58 | XMS_ITS | Encounter Summary ---
Author Organization [facility] Address [address] [place] [address] Phone Care Team Providers Care Steam Drier Operator Name Role Phone Anjelica Chauhan MD Primary Care Provider [phone] Germania Ruffin DO Primary Care Provider [phone]- [phone] Germania Ruffin DO Primary Care Provider [phone]- [phone] Uyen Vivas MD Primary Care Provider Marianela Farris MD, MPH Primary Care Provid er Encounter Details Date Type Department Care Team (Late st Contact Info) Description 05/19/2018 Procedure Pass [facility] Endoscopy Admitting Dept Virtual Department [address] [place] [address] Social History Tobacco Use Types Packs/Day Years [...] COVID-19 10/08/2022 10/08/2022 10/29/2022 1:21 AM EDT documented as of this encounter Care Teams Steam Drier Operator Relationship Specialty Start Date End Date Anjelica Chauhan MD [address] [place] [address] [email or web address] PCP - General Family Medicine 05/15/18 9 Germania Ruffin DO [address] [place] [address] [email or web address] PCP - General Family Medicine 03/30/19 08/09/20 Gremania Ruffin DO [address] [place] [address] [email or web address] PCP - General Family Medicine 08/10/20 11/24/20 Uyen Vivas MD [address] [place] [address] [email or web address] PCP - General Family Medicine 11/25/20 12/04/20 Marianela Farris MD, MPH [address] [place] [address] [email or web address] PCP - General Family Medicine 12/05/20 documented as of this encounter Additional Source Comments The information contained in this document represents components of the legal health record. It is not the complete legal health record.[facility]
--- OUTSIDE RECORDS SUMMARY | 2025-04-14 16:58 | XMS_ITS | Encounter Summary ---
Author Organization [facility] Address [address] [place] [address] Phone Care Team Providers Care Supplier Relationship Director Name Role Phone Germania Ruffin DO Primary Care Provider [phone]- [phone] Germania Ruffin DO Primary Care Provider [phone]- [phone] Uyen Vivas MD Primary Care Provider Marianela Farris MD, MPH Primary Care Provid er Encounter Details Date Type Department Care Team (Late st Contact Info) Description 05/16/2020 Procedure Pass [facility] [address] [place] [address] Social History Tobacco Use Types Packs/Day Years [...] documented as of this encounter Care Teams Supplier Relationship Director Relationship Specialty Start Date End Date Germania Ruffin DO [address] [place] [address] [email or web address] PCP - General Family Medicine 03/30/19 08/09/20 Germania Ruffin DO [address] [place] [address] [email or web address] PCP - General Family Medicine 08/10/20 11/24/20 Uyen Vivas MD [address] [place] [address] [email or web address] PCP - General Family Medicine 11/25/20 12/04/20 Marianela Farris MD, MPH [address] [place] [address] [email or web address] PCP - General Family Medicine 12/05/20 documented as of this encounter Additional Source Comments The information contained in this document represents components of the legal health record. It is not the complete legal health record.[facility]
--- OUTSIDE RECORDS SUMMARY | 2025-04-14 16:58 | XMS_ITS | Encounter Summary ---
Author Organization [facility] Address [address] [place] [address] [place] [address] Phone Care Team Providers Care Recreation Technician Name Role Phone Marianela Farris MD, MPH Primary Care Provid er Encounter Details Date Type Department Care Team (Late st Contact Info) Description 09/11/2023 Procedure Pass [facility], [address] [address] Social History Tobacco Use Types Packs/Day Years [...] - Inhaled Oxygen Concentration - - Weight 80.3 kg (177 lb) 09/12/2023 1:25 PM EST Height 160 cm (5' 3 ) 09/12/2023 1:25 PM EST Body Mass Index 31.35 09/12/2023 1:25 PM EST documented in this encounter Plan of Treatment Not on file documented as of this encounter Visit Diagnoses Not on filedocumented in this encounter Additional Health Concerns Assessment Noted Time PHQ-2 Depression Total Score: 0 06/02/20 19 3:27 PM EST documented as of this encounter Care Teams Recreation Technician Relationship Specialty Start Date End Date Marianela Farris MD, MPH [address] [place] [address] [email or web address] PCP - General Family Medicine 12/05/20 documented as of this encounter Additional Source Comments The information contained in this document represents components of the legal health record. It is not the complete legal health record.[facility]
--- OUTSIDE RECORDS SUMMARY | 2025-04-14 16:58 | XMS_ITS | Encounter Summary ---
Author Organization [facility] Address [address] [place] [address] Phone Care Team Providers Care Employee Relations Director Name Role Phone Germania Ruffin DO Primary Care Provider [phone]- [phone] Germania Ruffin DO Primary Care Provider +1- [phone] Uyen Vivas MD Primary Care Provider [phone]- [phone] Marianela Farris MD, MPH Primary Care Provid er Encounter Details Date Type Department Care Team (Late st Contact Info) Description 04/15/2019 Ancillary Orders [facility],Outside Imaging [address] [place] [address] System, Provider Not In, [place] [address] Social History Tobacco Use Types Packs/Day Years [...] encounter Results * Mammogram Outside (No Interpretation) (11/10/2015 12:00 AM EDT) Narrative SYSTEMGENERATED, DOCUMENTATION - 04/15/2019 8:22 AM EDT This study is for PACS [...] documented as of this encounter Care Teams Employee Relations Director Relationship Specialty Start Date End Date Germania Ruffin DO [address] [place] [address] [email or web address] PCP - General Family Medicine 03/30/19 08/09/20 Germania Ruffin DO [address] [place] [address] [email or web address] PCP - General Family Medicine 08/10/20 11/24/20 Uyen Vivas MD [address] [place], [place] [phone] PCP - General Family Medicine 11/25/20 12/04/20 Marianela Farris MD, MPH [address] [place] [address] [email or web address] PCP - General Family Medicine 12/05/20 documented as of this encounter Additional Source Comments The information contained in this document represents components of the legal health record. It is not the complete legal health record.[facility]
--- OUTSIDE RECORDS SUMMARY | 2025-04-14 16:58 | XMS_ITS | Encounter Summary ---
Author Organization [facility] Address [address] [place] [address] Phone Care Team Providers Care Hay Stacker Operator Name Role Phone Germania Ruffin DO Primary Care Provider [phone]- [phone] Germania Ruffin DO Primary Care Provider +1- [phone] Uyen Vivas MD Primary Care Provider [phone] Marianela Farris MD, MPH Primary Care Provid er Encounter Details Date Type Department Care Team (Late st Contact Info) Description 04/15/2019 Ancillary Orders [facility],Outside Imaging [address] [place] [address] System, Provider Not In, [place] [address] Social History Tobacco Use Types Packs/Day Years [...] encounter Results * Mammogram Outside (No Interpretation) (02/03/2018 12:00 AM EDT) Narrative SYSTEMGENERATED, DOCUMENTATION - 04/15/2019 8:25 AM EDT This study is for PACS [...] documented as of this encounter Care Teams Hay Stacker Operator Relationship Specialty Start Date End Date Germania Ruffin DO [address] [place] [address] [email or web address] PCP - General Family Medicine 03/30/19 08/09/20 Germania Ruffin DO [address] [place] [address] [email or web address] PCP - General Family Medicine 08/10/20 11/24/20 Uyen Vivas MD [address] [place], [place] [phone] PCP - General Family Medicine 11/25/20 12/04/20 Marianela Farris MD, MPH [address] [place] [address] [email or web address] PCP - General Family Medicine 12/05/20 documented as of this encounter Additional Source Comments The information contained in this document represents components of the legal health record. It is not the complete legal health record.[facility]
--- OUTSIDE RECORDS SUMMARY | 2025-04-14 16:58 | XMS_ITS | Encounter Summary ---
Author Organization [facility] Address [address] [facility] [address] [place] [address] Phone Care Team Providers Care Copier Repair Technician Name Role Phone Marianela Farris MD, MPH Primary Care Provid er Encounter Details Date Type Department Care Team (Late st Contact Info) Description 11/07/2023 Ancillary Orders [facility] [address] [place] [address] Hollis Hannah MD [address] [place], [place] [id number] [email or web address] Other chronic pain (Primary Dx) Social History Tobacco Use Types [...] documented as of this encounter Results * [place] Pain Management (11/13/2023 11:47 AM EDT) Narrative [facility] IMG INTERFACES - 11/13/2023 11:47 AM EDT Fluoroscopy was provided during this procedure. us Hollis Hannah MD IMG [place] EXAMS Final Result [facility] IMG INTERFACES documented in this encounter Visit Diagnoses Diagnosis Other chronic pain- Primary Other chronic pain documented in this encounter Additional Health Concerns Assessment Noted Time PHQ-2 Depression Total Score: 0 06/02/20 19 3:27 PM EST documented as of this encounter Care Teams Copier Repair Technician Relationship Specialty Start Date End Date Marianela Farris MD, MPH [address] [place] [address] [email or web address] PCP - General Family Medicine 12/05/20 documented as of this encounter Additional Source Comments The information contained in this document represents components of the legal health record. It is not the complete legal health record.[facility]
== END 2025-04-14 14:36 | disposition home or self-care (01) ==
LOC: HO.HOS 14:11
PROVIDERS: PCP Family Medicine; Visit Provider Orthopaedic Surgery
DX: M17.12 Unilateral primary osteoarthritis, left knee (principal)
CPT/HCPCS: 99214

== ENCOUNTER 2025-04-19 06:13 | Day surgery (SDC) | payer OTHER, SELFPAY ==
--- OUTSIDE RECORDS SUMMARY | 2025-01-27 09:44 | XMS_ITS | Patient Health Record ---
Author [facility] [place] Address [address] [place] [address] Care Team Providers Care Affirmative Action Officer Name Role Phone Germania Ruffin Primary Care Provider Kelvin Sullivan Unavailable [phone] Allergies Allergen (clinical drug ingredient) Drug/Non Drug Allergy documented on EMR Reaction Allergy Type Onset Date Status Latex Latex Unknown Allergy Active Reason For Referral No Information Medications Medication SIG (Take, Route, Fr equency, Duration) Notes Start Date End Date Status Acetaminophen 500 MG 1 capsule as needed Orally every 6 hrs Active Celecoxib 100 MG 1 capsule with food Orally Once a day; Duration: 30 day(s) Activ e Social History Tobacco Use: Social History Observation [...] Insured Coverage Start Date Coverage End Date [facility] [address] [place] [address] [phone] [id number] Brittani Mello Self - patient is the insured Medical (General) History Medical History History ICD Code asthma Back,Hip,and Knee pain Measles Mumps Chicken pox osteoarthritis Varicose veins Bunion Plantar fasciitis Surgical History Surgery Date(Month/Year) section 1993, 1996 appendectomy 2006
--- NOTE | 2025-03-26 09:23 | HO.ANESPROP2 ---
Documented by User: Caroline Mooney NP 03/26/25 10:16 HPI - Anesthesia Eval Consult details Narrative: 64 yr old female for left total knee replacement, scheduled for 04/19/25, seen in PAT s/p right TKA at [facility] in 2022, post op day 1 she fainted when walking, developed rigors, required prolonged hospital stay. PCP saw pt, medically optimized for surgery 02/2025 visit H/O HI/cardiac stent: PCI stent done by Dr. Ramirez 11/2023; completed 1 yr of dual anti-platelet therapy, on ASA monotherapy; follows with [facility] cardiology, deemed intermediate risk for surgery at clearance visit 02/17/25; she was instructed to continue ASA through perioperative period. No CP/SOB with walking 10 min at a time then needs to rest 2/2 right leg, lower back pain. No recent illness Anesthesia Pre-Procedure Meds Is the patient on any of the following meds?: GLP1/DPP4 PMFSH Active Problems Active Problems: All Active Problems (Updated 03/26/25 @ 09:22 by Radha Carmen RN) Preop cardiovascular exam (Acute) Right knee pain (Acute) Annual physical exam (Acute) Pre-op evaluation (Acute) Dizziness (Acute) Severe obesity (BMI 35.0-35.9 with comorbidity) (Acute) Screening for diabetes mellitus (Acute) Weight gain (Acute) Lumbar spondylosis (Acute) Lumbar radiculopathy (Acute) Stable angina (Acute) Coronary artery disease (Acute) Osteoarthritis of left knee (Acute) Left knee pain (Acute) Past Medical History Medical History Back pain Numbness On beta alex at home Myocardial infarction HTN (hypertension) Asthma Family History Family History Brother Heart attack Sister Stented coronary artery Family history of problems with anesthesia: No Surgical History Surgical History H/O colonoscopy History of appendectomy History of 2 sections History of total right knee replacement (~05/14/23) History of heart artery stent History of Problems with Anesthesia: No Social History Social History Housing: Condominium Are you a primary career professional to a significant other at home: No Do you presently have visiting nurse or other home services: No Alcohol intake: never Patient Tobacco Use Status: Never used Tobacco e-Cigarette/Vaping Use: Never Used Second Hand Smoke Exposure: No Use of substances other than those prescribed or required for medical reasons: No Have you been hit, kicked, punched, or otherwise hurt by someone within the past year? If so, by whom?: No Are you DNR?: No Advance Directives: No Advance Directives Information Provided: Yes Advance Directives on File: No Patient : No : No Poor oral hygiene: Yes service: No Current occupational status: unemployed Cognitive needs: No Hearing needs: No Vision needs: No Meds Allergies Allergy/AdvReac Type Severity Reaction Status Date / Time latex Allergy hives, Verified 03/26/25 10:53 swelling Home Medications ?Medication ?Instructions ?Recorded ?Confirmed ?Last Taken ?Type acetaminophen 325 mg tablet 975 mg PO TID PRN pain 10/14/24 04/19/25 Unknown History therapeutic multivitamin 1 tab PO DAILY 10/14/24 04/19/25 Unknown History semaglutide 1 mg/dose (4 mg/3 mL) 1 mg subcut QWEEK 02/17/25 04/19/25 04/09/25 History subcutaneous pen injector (Ozempic) polyethylene glycol 3350 17 17 g PO DAILY PRN Constipation 03/26/25 04/19/25 Unknown History gram/dose oral powder (Miralax) Exam Pertinent Lab Results Pertinent Lab Results: Laboratory Tests 12/03/24 15:16 WBC 8.6 RBC 4.32 Hgb 12.7 Hct 39.1 Plt Count 311 Sodium 141 Potassium 4.4 BUN 17 H Creatinine 0.67 Narrative Narrative: ECHO 2023 [facility] Left ventricle is normal in size and wall thickness. Overall left ventricular systolic function is normal. LVEF estimated at 55%. There are no definite wall motion abnormalities. Normal diastolic function. The right ventricle is normal in size & function. EKG 01/2025 NSR, rate 71 Inferior infarct age undetermined Cannot rule out anterior infarct Airway Mallampati Class: III TM Dist: >3cm Neck ROM: Full Loose/Missing/Broken Teeth: No (crown lower middle) Heart: RRR Lungs: CTAB Assessment and Plan Final Anesthetic Review Family History of Problems with Anesthesia: No History of Problems with Anesthesia: No Documented by User: Evy Santos NP 04/15/25 08:46 PMFSH Past Medical History Medical History Back pain Numbness On beta alex at home Myocardial infarction HTN (hypertension) Asthma Family History Family History Brother Heart attack Sister Stented coronary artery Surgical History Surgical History H/O colonoscopy History of appendectomy History of 2 sections History of total right knee replacement (~05/14/23) History of heart artery stent Social History Social History Housing: Condominium Are you a primary career professional to a significant other at home: No Do you presently have visiting nurse or other home services: No Alcohol intake: never Patient Tobacco Use Status: Never used Tobacco e-Cigarette/Vaping Use: Never Used Second Hand Smoke Exposure: No Use of substances other than those prescribed or required for medical reasons: No Have you been hit, kicked, punched, or otherwise hurt by someone within the past year? If so, by whom?: No Are you DNR?: No Advance Directives: No Advance Directives Information Provided: Yes Advance Directives on File: No Patient : No : No Poor oral hygiene: Yes service: No Current occupational status: unemployed Cognitive needs: No Hearing needs: No Vision needs: No Meds Allergies Allergy/AdvReac Type Severity Reaction Status Date / Time latex Allergy hives, Verified 03/26/25 10:53 swelling Home Medications ?Medication ?Instructions ?Recorded ?Confirmed ?Last Taken ?Type acetaminophen 325 mg tablet 975 mg PO TID PRN pain 10/14/24 04/19/25 Unknown History therapeutic multivitamin 1 tab PO DAILY 10/14/24 04/19/25 Unknown History semaglutide 1 mg/dose (4 mg/3 mL) 1 mg subcut QWEEK 02/17/25 04/19/25 04/09/25 History subcutaneous pen injector (Ozempic) polyethylene glycol 3350 17 17 g PO DAILY PRN Constipation 03/26/25 04/19/25 Unknown History gram/dose oral powder (Miralax) Exam Pertinent Lab Results Pertinent Lab Results: Lab Results 03/26/25 04/14/25 Range/Units 09:40 14:55 WBC 9.1 (4.8-10.8) X10*3/uL RBC 4.13 L (4.20-5.50) X10*6/uL Hgb 12.4 (12.0-16.0) g/dl Hct 36.8 L (37.0-47.0) % MCV 89.1 (80.0-98.0) fL MCH 30.0 (27.0-33.0) pg MCHC 33.7 (31.0-35.0) g/dl RDW 12.2 (11.0-16.0) % Plt Count 301 (160-400) X10*3/uL MPV 10.9 (9.4-12.3) fL Absolute Nucleated RBC 0.000 (0.0-0.012) X10*3/uL Nucleated RBC % (auto) 0.0 (0.0-0.2) /100WBC Sodium 142 (135-145) mmol/L Potassium 4.0 (3.3-5.1) mmol/L Chloride 106 (96-108) mmol/L Carbon Dioxide 29 (22-29) mmol/L Anion Gap 11 L (12-20) BUN 12 (9-16) mg/dL Creatinine 0.65 (0.5-1.4) mg/dL Estim Creat Clear Calc 91.5 Estimated GFR > 60 Random Glucose 77 (60-115) mg/dL Calcium 9.2 (8.4-10.2) mg/dL Nasal Screen MRSA (PCR) NEGATIVE (Negative) Nasal S. aureus Screen NEGATIVE (Negative) Nasal MRSA/S.aureus Interp SEE NOTE Blood Type B Positive Antibody Screen NEGATIVE Documented by User: Abbie Thompson MD 04/19/25 08:32 PMFSH Past Medical History Medical History Back pain Numbness On beta alex at home Myocardial infarction HTN (hypertension) Asthma Family History Family History Brother Heart attack Sister Stented coronary artery Surgical History Surgical History H/O colonoscopy History of appendectomy History of 2 sections History of total right knee replacement (~05/14/23) History of heart artery stent Social History Social History Housing: Condominium Are you a primary career professional to a significant other at home: No Do you presently have visiting nurse or other home services: No Alcohol intake: never Patient Tobacco Use Status: Never used Tobacco e-Cigarette/Vaping Use: Never Used Second Hand Smoke Exposure: No Use of substances other than those prescribed or required for medical reasons: No Have you been hit, kicked, punched, or otherwise hurt by someone within the past year? If so, by whom?: No Are you DNR?: No Advance Directives: No Advance Directives Information Provided: Yes Advance Directives on File: No Patient : No : No Poor oral hygiene: Yes service: No Current occupational status: unemployed Cognitive needs: No Hearing needs: No Vision needs: No Meds Allergies Allergy/AdvReac Type Severity Reaction Status Date / Time latex Allergy hives, Verified 03/26/25 10:53 swelling Home Medications ?Medication ?Instructions ?Recorded ?Confirmed ?Last Taken ?Type acetaminophen 325 mg tablet 975 mg PO TID PRN pain 10/14/24 04/19/25 Unknown History therapeutic multivitamin 1 tab PO DAILY 10/14/24 04/19/25 Unknown History semaglutide 1 mg/dose (4 mg/3 mL) 1 mg subcut QWEEK 02/17/25 04/19/25 04/09/25 History subcutaneous pen injector (Ozempic) polyethylene glycol 3350 17 17 g PO DAILY PRN Constipation 03/26/25 04/19/25 Unknown History gram/dose oral powder (Miralax) Assessment and Plan Assessment Anesthesia Assessment: Anesthesia Plan Discussed and Chart Reviewed Final Anesthetic Review NPO: Yes ASA Class: III Final Preanesthetic Review: No Changes in Pt Med Stat, Meds/Allgs Chart Reviewed, Consent Obtained/Reviewed and Anes Risks/Benef Reviewed Patient Risk: Intermediate Procedure Risk: Intermediate Anesthetic Plan Anesthetic Plan: GA, MAC:, Spinal, Neuraxial Block:, Regional Block and Agree w/ Assess. and Plan Disposition: Standard PACU
[2025-03-26 09:30] VITALS: BP 119/71; PULSE 77; RESP 18; O2SAT 97; BMI 32.4
[2025-03-26 12:04] LABS: MRSA Nasal PCR NEGATIVE (Negative); SA Nasal PCR NEGATIVE (Negative)
[2025-04-14 15:31] LABS: Hematocrit 36.8 % (37.0-47.0); Hemoglobin 12.4 g/dl (12.0-16.0); Mean Corpuscular HGB Conc 33.7 g/dl (31.0-35.0); Mean Corpuscular Hemoglobin 30.0 pg (27.0-33.0); Mean Corpuscular Volume 89.1 fL (80.0-98.0); NRBC Abs Auto 0.000 X10*3/uL (0.0-0.012); NRBC Pct Auto 0.0 /100WBC (0.0-0.2); Platelet Count 301 X10*3/uL (160-400); Red Blood Count 4.13 X10*6/uL (4.20-5.50); White Blood Count 9.1 X10*3/uL (4.8-10.8)
[2025-04-14 15:58] LABS: Anion Gap 11 (12-20); Blood Urea Nitrogen 12 mg/dL (9-16); Calcium 9.2 mg/dL (8.4-10.2); Carbon Dioxide 29 mmol/L (22-29); Chloride 106 mmol/L (96-108); Creatinine Clr Calc Pharmacy 91.5; Estimated Glomerular Filt Rate > 60; Potassium 4.0 mmol/L (3.3-5.1); Sodium 142 mmol/L (135-145)
[2025-04-19] VITALS (17 sets, daily range): BP systolic 98–121; BP diastolic 53–71; PULSE 65–75; RESP 12–18; TEMP 36–36.4; O2SAT 93–99; BMI 34.8
--- NOTE | ~2025-04-19 | XR_ITS ---
CLINICAL HISTORY: abd cramping 1 view abdomen Comparison: None Findings: Pelvis not included on study. Normal bowel gas pattern. Moderate amount of stool noted. No free air or intramural air. No abnormal calcifications. No significant bony abnormalities. Impression: Moderate stool without bowel distention. This document has been electronically signed by: Michael Alexandre MD on 04/22/2025 21:59:22
[2025-04-19] MEDS: Lactated Ringers 1,000 ML 100 ML IVCONT ×3 (07:15→22:43)
--- NOTE | 2025-04-19 07:23 | PC.NURSE ---
pt has slight redness possible rash in appearance behind left knee. no open areas on skin noted. Dr. Yessi tamayo.
--- NOTE | 2025-04-19 09:45 | PM.DS ---
DS: Providers Provider Date of Service: 04/23/25 <Vernell Lzi PA-C - Last Filed: 04/23/25 15:34> Date of discharge: 04/23/25 <DENZEL Samuels Last Filed: 04/23/25 15:34> Primary care physician: Tia Thomas PA-C <Anisha Heard PA-C - Last Filed: 04/23/25 11:19> DS: Summary Hospital Course Hospital Course: The patient underwent a successful left total knee arthroplasty, they were transferred to PACU and then to the floor to recover. During their stay, their vitals were stable, afebrile at 97.7. Labs were unremarkable, H/H 8.9/27.1. POD 1 they were started on Aspirin 325mg po bid for DVT ppx, they also received Physical Therapy services. Prior to discharge, their dressing was clean dry and intact and the plan was to be discharged to rehab for additional physical therapy for safe discharge home. continue with stool softners /laxitives to prevent constipation narcotics can cause constipation, use caution. <Anisha Heard PA-C - Last Filed: 04/23/25 11:19> Time Attestation Discharge Coordination Time (in mins): 30 <DENZEL Vergara Last Filed: 04/23/25 11:19> Quality: Safe Use of Opioids Does Pt have an Active Cancer Diagnosis on the Problem List?: No <Anisha Heard PA-C - Last Filed: 04/23/25 11:19> Quality: Stroke Does the patient have a stroke diagnosis?: No <Anisha Heard PA-C - Last Filed: 04/23/25 11:19> Physical Exam Vital Signs: Vital Signs: Last Vital Signs Temp 97.5 F 04/19/25 06:36 Pulse 72 04/19/25 06:36 Resp 16 04/19/25 06:36 BP 121/71 04/19/25 06:36 Pulse Ox 99 04/19/25 06:36 O2 Del Method Room Air 04/19/25 06:36 BMI result Body Mass Index 32.4 <DENZEL Vergara Last Filed: 04/23/25 11:19> Const: General: cooperative, healthy appearing and no acute distress <Anisha Heard PA-C - Last Filed: 04/23/25 11:19> Resp: Effort & Inspection: normal respiratory effort and able to speak in complete sentences <Anisha Heard PA-C - Last Filed: 04/23/25 11:19> Extrem: Other: left knee dressing is c/d/i. Able to dorsi/plantar flex. Calf is supple and nontender. Sensation intact. Pedal pulse intact. <Anisha Heard PA-C - Last Filed: 04/23/25 11:19> Psych: Appearance: grossly normal <Anisha Heard PA-C - Last Filed: 04/23/25 11:19> Mental Status: mental status grossly normal <Anisha Heard PA-C - Last Filed: 04/23/25 11:19> Attitude: cooperative <Anisha Heard PA-C - Last Filed: 04/23/25 11:19> DS: Data Data Completed and Pending Pending studies at discharge: Pending at discharge 04/19/25 09:16 Surgical [PTH] Routine <Anisha Heard PA-C - Last Filed: 04/23/25 11:19> Discharge Plan Discharge Patient Disposition: Home Health Service <Anisha Heard PA-C - Last Filed: 04/23/25 11:19> Referrals: Rufus GARVEY [Outside] - 1 Week nAisha Heard PA-C [Physician Hat Lining Paster, Orthopedics] - 1 Week <Anisha Heard PA-C - Last Filed: 04/23/25 11:19> Discharge Medications: New acetaminophen 325 mg Tablet 650 mg PO Q6H PRN (Reason: Pain, Mild 1-3,Fever,Headache) 30 Days Qty: 240 0RF dicyclomine 10 mg Capsule 10 mg PO QIDACHS 30 Days Qty: 120 0RF aspirin 325 mg Tablet 325 mg PO Q12H 42 Days Qty: 84 0RF gabapentin 100 mg Capsule 100 mg PO BEDTIME 7 Days Qty: 7 0RF docusate sodium 100 mg Capsule 100 mg PO BID 30 Days Qty: 60 0RF oxycodone 5 mg Tablet 5 mg PO Q4H PRN (Reason: Pain, Moderate(Pain Scale 4-6)) 7 Days Qty: 42 0RF Rx Instructions: Partial Fill upon patient request. sennosides [Senna Lax] 8.6 mg Tablet 8.6 mg PO BEDTIME 30 Days Qty: 30 0RF Continued aspirin 81 mg tablet,delayed release (DR/EC) 81 mg PO DAILY Qty: 90 3RF atorvastatin 80 mg tablet 80 mg PO DAILY Qty: 90 3RF metoprolol succinate [Toprol XL] 25 mg tablet extended release 24 hr 25 mg PO DAILY Qty: 90 3RF losartan 25 mg tablet 25 mg PO DAILY Qty: 90 3RF (DME) walker Misc See Rx Instructions .ROUTE .MEDSUPPLY Qty: 1 0RF Rx Instructions: Folding front wheeled walker polyethylene glycol 3350 [Miralax] 17 gram/dose powder 17 g PO DAILY PRN (Reason: Constipation) therapeutic multivitamin Tablet 1 tab PO DAILY Ozempic 1 mg/dose (4 mg/3 mL) pen injector 1 mg subcut QWEEK Patient Comments: takes every Saturday Discontinued amlodipine 10 mg tablet 10 mg PO DAILY Qty: 90 3RF acetaminophen 325 mg tablet 975 mg PO TID PRN (Reason: pain) <DENZEL Vergara Last Filed: 04/23/25 11:19> Discharge Orders: Discharge Order (Routine); Ordered 04/23/25 Ordered By: Vernell Liz <DENZEL Vergara Last Filed: 04/23/25 11:19> Diet: Advance to usual diet <DENZEL Vergara Last Filed: 04/23/25 11:19> Advance to usual diet <DENZEL Samuels Last Filed: 04/23/25 15:34> Activity on Discharge: Use cane or walker <DENZEL Vergara Last Filed: 04/23/25 11:19> Use cane or walker <DENZEL Samuels Filed: 04/23/25 15:34> Activity Restrictions/Additional Instructions: Physical Therapy for ROM 0-120, quad strength, gait training. Use walker for ambulation Limit stair climbing No shower or tub bath No driving for 6 weeks Continue anticoagulant Keep Aquacel dressing clean, dry and intact. Follow up with orthopedics in 2 weeks -Bandage/Incision Site Care: -Ice 20mins at a time -Make sure you use a towel or cloth on your skin as a barrier -DO NOT remove the bandage -Keep Bandage clean, dry and intact -Do not get the bandage wet: -No tub bath, pools or hot tubs -If there are any concerns regarding the bandage please call orthopedics: [phone] -Knee Precautions: -Refrain from putting pillows under the knee -Keep leg straight while resting the knee -Avoid low chairs and deep couches -Use supportive shoes with nonslip soles -Physical Therapy: -Patient is WBAT with the use of a walker -Range of Motion: 0-120 degrees. -Strengthening: Quadriceps and hip muscles -Walking: Gait training and gradually increasing distance with walker -Ankle pumps and incentive spirometry to limit the risk of blood clot -Diet: -Resume regular diet as tolerated. -Drink plenty of fluids and eat a high-fiber foods to avoid constipation -This is a common side effect of pain medication) -Take stool softeners as prescribed -Blood Clot Prevention: -Take the prescribed blood thinner (Aspirin) as directed for 6 weeks -Perform ankle pumps and walk frequently with the walker and assistance if needed -Report calf pain, swelling, or shortness of breath immediately <Anisha Heard PA-C - Last Filed: 04/23/25 11:19> Print Language: Ariel <Anisha Heard PA-C - Last Filed: 04/23/25 11:19>
--- NOTE | 2025-04-19 10:32 | PM.OP ---
Brief Operative Note Date of Service: 04/19/25 Pre-op diagnosis: Left knee degenerative joint disease Post-op diagnosis: same Procedure: Left total knee arthroplasty Implants: Kelly Triathlon cemented posterior stabilized total knee arthroplasty with a femoral component size 2 left, tibial component size 2, polyethylene liner size 2 with 10 mm of thickness, a symmetric patellar component size 29 with 8 mm of thickness Surgeon: Miguel Dickson MD Anesthesia: GLMA, regional and spinal Was an Dumper Bulk System used for this Procedure?: No Dumper Bulk System: Anisha Heard Estimated blood loss (mL): 200 Pathology: other (Bony fragments from the left femur, tibia and patella) Condition: stable Disposition: PACU
--- NOTE | 2025-04-19 10:34 | P.OP_ITS ---
Operative Note Operative Note Date of Service: 04/19/25 Narrative: After the patient was identified as Brittani Mello and her left knee was initialed by myself the patient was brought to the holding area where a left leg nerve block was performed by the anesthesiologist in routine fashion. The patient was then brought to the operating room where conscious sedation and spinal anesthesia were performed by the anesthesiologist in routine fashion. The patient was given 2 g of IV Ancef preoperatively for infection prophylaxis. The patient's left lower extremity was prepped and draped in sterile fashion. A formal time-out was completed. The patient's left knee was placed onto a small bump to produce 30? of knee flexion during exposure. A #10 scalpel blade was used to make a midline incision extending 1 handbreadth proximal and distal to the patella. A second #10 scalpel blade was used to dissect the subcutaneous tissues down to the extensor mechanism. The subcutaneous flaps were maintained as thick as possible. A medial parapatellar arthrotomy was then performed using a #10 scalpel blade. The arthrotomy was begun just medial to the patellar tendon. The arthrotomy was continued 1 cm medial to the patella and then 5 mm into the medial aspect of the quadriceps tendon. The infrapatellar fat pad was partially excised to help with exposure. The soft tissue retinaculum was raised one-half of the way around the medial aspect of the proximal tibia. The patella was everted and the knee was flexed to 90?. At this point the decision was made by the anesthesia team to place an LMA and convert to general anesthesia because the patient had a fair amount of oral secretions. The LMA was placed without difficulty. There was no injury to the patellar tendon or its insertion onto the tibial tubercle. A drill bit was introduced into the distal aspect of the femur with a starting point 1 cm anterior to the origin of the posterior cruciate ligament. The intramedullary alignment efrain was put into place. The distal alignment guide was set for a 5 degree valgus cut. The distal cutting block was put into place and we held it with 4 pins. The intramedullary alignment efrain was removed. Soft tissues were retracted in the distal femoral cut was made using a sagittal saw. The distal aspect of the femur measured to be a size 2 left component. Two drill holes were placed into the distal aspect of the femur marking 3? of external rotation. The distal cutting block was impacted into place and we held it with 2 pins. Soft tissues were retracted and the 4 distal femoral cuts were made using a sagittal saw. Final notching and drilling of the distal aspect of the femur were performed in routine fashion. The trial femoral component was impacted into place. The knee was taken through a full range of motion. The patella tracked well. The patella was everted and the knee was flexed to 90?. The trial component was removed and our attention was directed to the proximal tibia. The medial and lateral menisci were removed using a #10 scalpel blade. A small rim of the medial meniscus was left intact to help prevent injury to the medial collateral ligament. A drill bit was then introduced into the proximal tibia with a starting point midway from medial to lateral and one-third of the way posteriorly. The intramedullary alignment efrain was put into place. The proximal tibial cutting guide was placed over the alignment efrain in line with the 2nd toe. The guide was held in place using 3 pins. The intramedullary alignment efrain was removed. Soft tissues were retracted and the proximal tibial cut was made using a sagittal saw. The proximal tibia measured to be a size 2 component. The tibial tray was put into place with a 10 mm liner. The femoral component was impacted into place. The knee was taken through a full range of motion. There was full flexion and full extension. There was no instability with varus or valgus stress testing with the knee in flexion or extension. The patella tracked well with no medially directed force. The rotation of the tibial tray was marked using electrocautery with the knee in extension. The patella was everted and the knee was flexed to 90?. All trial components were removed. The tibial tray was placed onto the proximal tibia in line with the electrocautery francesca. The tray was held in place using 3 pins. Final broaching of the proximal tibia was performed in routine fashion. The trial liner and trial femoral component were put into place. The knee was brought into extension and our attention was directed to the patella. The patella measured 25 mm in thickness. The patellar resection guide was set for a 10 mm resection. Soft tissues were retracted and the patella cut was made using a sagittal saw. The remaining patella measured 15 mm in thickness. The undersurface of the patella was measured to be a size 29 symmetric component. Three drill holes were placed into the undersurface of the patella in routine fashion. The trial component was put into place. The knee was taken through a full range of motion. The patella tracked well. The patella was everted and the knee was flexed to 90?. All trial components were removed. The knee was once again brought into extension and placed onto a small bump. The knee joint was irrigated with copious amounts of normal saline solution via pulse lavage while the cement was mixed. The patella was everted and the knee was flexed to 90?. A small amount of cement was placed along the posterior aspects of the tibial and femoral components. Cement was then pressurized into the proximal tibia. The tibial component was impacted into place. Any excess cement was removed. The polyethylene liner was then impacted into place. Cement was then pressurized into the distal aspect of the femur. A small amount of cement was placed into the intramedullary canal to help reduce bleeding. The femoral component was impacted into place. Any excess cement was removed. The knee was then brought into extension. Cement was pressurized into the undersurface of the patella. The patellar component was put into place and was held with a patella clamp. Any excess cement was removed. Once the cement had hardened the patellar clamp was removed. The knee was taken through a full range of motion. There was full flexion and extension. There was no instability with varus or valgus stress testing with the knee in flexion or extension. The patella tracked well with no medially directed force. The knee joint was irrigated with copious amounts of normal saline solution via pulse lavage. Any significant bleeding vessels were coagulated. The patient's left knee was placed onto a small bump. The arthrotomy was closed with #2 Ethibond [id number] interrupted suture as well as #1 Vicryl [id number] interrupted suture. The wound was once again irrigated. The subcutaneous tissues were closed with 0 Vicryl and 2-0 Vicryl interrupted sutures. The skin was closed with skin easton. Dry sterile dressing and Chris bandages were placed over the patient's left knee. The patient was awoken and extubated in the operating room. The patient was transferred to the recovery room in stable condition. Justification for PA Technical Systems Architect: The complexity of this total knee arthroplasty, involving significant bony deformity and soft tissue releases, necessitates the assistance of a qualified surgical elastic knitter for optimal surgical exposure, hemostasis and efficient execution of the procedure.
[2025-04-19] MEDS: 0.9 % Sodium Chloride Flush 3 ML SYRINGE IVFLUSH (13:37)
--- NOTE | 2025-04-19 13:38 | PHA.MEDREC ---
Pharmacy Consult ? Medication Reconciliation Pharmacy has completed the medication reconciliation.Med rec done by nursing, spoke with patient to confirm.
[2025-04-19] MEDS: oxyCODONE HCl ER 10 MG TAB.ER.12H PO ×2 (13:40→19:33)
--- NOTE | 2025-04-19 13:58 | HO.PM.IMCN ---
History of Present Illness Data of Consult Service Date: 04/19/25 Primary Care Provider: Tia Thomas PA-C HPI 64-year-old woman admitted by Orthopedic surgery and is status post left total knee arthroplasty surgery was unremarkable. Patient has been able to drink without any nausea or vomiting. Vital signs are stable. Recent labs within normal limits. Review of Systems Review of Systems: Denies any recent fever chills or decrease in appetite respiratory denies any shortness of breath or cough cardiovascular denied chest pain gastrointestinal denies any dysphagia abdominal pain nausea vomiting or diarrhea genitourinary denies any dysuria frequency or hematuria musculoskeletal status post left total knee arthroplasty neuropsych denies any weakness or seizures all other systems reviewed are negative [facility] Medical History (Updated 04/19/25 @ 14:00 by Donna Gayle NP) Back pain Numbness Myocardial infarction HTN (hypertension) Asthma Family History Brother Heart attack Sister Stented coronary artery Surgical History H/O colonoscopy History of appendectomy History of 2 sections History of total right knee replacement (~05/14/23) History of heart artery stent Social History Household Members: Spouse Housing: House Are you a primary customer care representative to a significant other at home: No Do you presently have visiting nurse or other home services: No Alcohol intake: never Patient Tobacco Use Status: Never used Tobacco e-Cigarette/Vaping Use: Never Used Second Hand Smoke Exposure: No Use of substances other than those prescribed or required for medical reasons: No Currently Displaying Signs/Symptoms of Drug Intoxication Withdrawal: No Have you been hit, kicked, punched, or otherwise hurt by someone within the past year? If so, by whom?: No Do you feel safe in your current relationship?: Yes Are you DNR?: No Advance Directives: No Advance Directives Information Provided: Yes Advance Directives on File: No Recently lost weight without trying: No Patient : No : No Poor oral hygiene: No service: No Current occupational status: unemployed Cognitive needs: No Hearing needs: No Vision needs: No Meds Allergies Allergy/AdvReac Type Severity Reaction Status Date / Time latex Allergy hives, Verified 03/26/25 10:53 swelling Active Medications: Current Medications Acetaminophen (Acetaminophen 325 Mg Tablet) 650 mg PO Q6H PRN PRN Reason: Pain, Mild 1-3,fever,headache Amlodipine Besylate (Amlodipine Besylate 10 Mg Tablet) 10 mg PO DAILY [facility]; Protocol Aspirin (Aspirin 325 Mg Tablet) 325 mg PO BID [facility] Atorvastatin Calcium (Atorvastatin Calcium 80 Mg Tablet) 80 mg PO DAILY [facility] Celecoxib (Celecoxib 200 Mg Capsule) 200 mg PO BID [facility] Last Admin: 04/19/25 13:40 Dose: 200 mg Docusate Sodium (Docusate Sodium 100 Mg Capsule) 100 mg PO BID [facility] Last Admin: 04/19/25 13:40 Dose: 100 mg Gabapentin (Gabapentin 100 Mg Capsule) 100 mg PO BEDTIME [facility] Hydromorphone HCl (Hydromorphone Hcl 0.5 Mg/0.5 Ml Syringe) 0.25 mg IVPUSH Q5M PRN PRN Reason: Pain, Moderate to Severe (Pain Scale 4-10) Stop: 04/19/25 14:33 Last Admin: 04/19/25 12:20 Dose: 0.25 mg Hydromorphone HCl (Hydromorphone Hcl 0.5 Mg/0.5 Ml Syringe) 0.25 mg IVPUSH Q4H PRN; Protocol PRN Reason: Pain, Severe (Pain Scale 7-10) Lactated Ringer's (Lr) 1,000 mls @ 100 mls/hr IVCONT .Q10H [facility] Last Admin: 04/19/25 13:34 Dose: 100 mls/hr Cefazolin Sodium/Dextrose (Ancef) 2 gm in 50 mls @ 100 mls/hr IV Q8H [facility] Stop: 04/20/25 00:01 Influenza Virus Vaccine (Flu Vacc [id number](6mo Up)/Pf 0.5 Ml Syringe) 0.5 ml IM .ONCE ONE Stop: 04/20/25 08:01 Losartan Potassium (Losartan Potassium 25 Mg Tablet) 25 mg PO DAILY [facility]; Protocol Magnesium Hydroxide (Milk Of Magnesia 30 Ml Oral.Susp) 30 ml PO DAILY PRN PRN Reason: Constipation Methocarbamol (Methocarbamol 500 Mg Tablet) 500 mg PO TID [facility] Last Admin: 04/19/25 13:40 Dose: 500 mg Metoprolol Succinate (Metoprolol Succinate Er 25 Mg Tab.Er.24h) 25 mg PO DAILY [facility]; Protocol Naloxone HCl (Naloxone Hcl 0.4 Mg/Ml Vial) 0.04 mg IVPUSH Q5M PRN PRN Reason: Excessive sedation or RR < 8 Non-Formulary Medication (Semaglutide [Ozempic]) 1 mg SUBCUT Fr@0900 [facility] Oxycodone HCl (Oxycodone Hcl Immed Release 5 Mg Tablet) 5 mg PO Q4H PRN PRN Reason: Pain, Moderate(Pain Scale 4-6) Oxycodone HCl (Oxycodone Hcl Er 10 Mg Tab.Er.12h) 10 mg PO BID [facility] Last Admin: 04/19/25 13:40 Dose: 10 mg Polyethylene Glycol (Polyethylene Glycol 3350 17 Gm Powd.Pack) 17 gm PO DAILY PRN PRN Reason: Constipation Sodium Chloride (0.9 % Sodium Chloride Flush 3 Ml Syringe) 3 ml IVFLUSH QSHIFT [facility] Last Admin: 04/19/25 13:37 Dose: 3 ml Home Medications ?Medication ?Instructions ?Recorded ?Confirmed ?Last Taken ?Type acetaminophen 325 mg tablet 975 mg PO TID PRN pain 10/14/24 04/19/25 Unknown History therapeutic multivitamin 1 tab PO DAILY 10/14/24 04/19/25 Unknown History semaglutide 1 mg/dose (4 mg/3 mL) 1 mg subcut QWEEK 02/17/25 04/19/25 04/09/25 History subcutaneous pen injector (Ozempic) polyethylene glycol 3350 17 17 g PO DAILY PRN Constipation 03/26/25 04/19/25 Unknown History gram/dose oral powder (Miralax) Physical Exam Vital Signs and Narrative: Vital Signs: Last Vital Signs Temp 97.0 F 04/19/25 13:08 Pulse 68 04/19/25 13:08 Resp 16 04/19/25 13:08 BP 107/59 L 04/19/25 13:08 Pulse Ox 96 04/19/25 13:08 O2 Del Method Room Air 04/19/25 13:08 O2 Flow Rate 0 04/19/25 12:30 BMI result Body Mass Index 34.8 Appearing in no acute distress head is normocephalic atraumatic eyes pupils are PERRLA sclera is anicteric mouth throat mucous membranes are intact and moist neck is supple no lymphadenopathy, no JVD noted lung sounds are clear to auscultation heart regular rate rhythm, clear S1, S2 positive bowel sounds, abdomen is soft, nontender neuro patient is alert x3, no focal deficits Surgical incision not visualized, surgical dressing intact Results Labs 04/14/25 14:55 04/14/25 14:55 Assessment and Plan (1) Osteoarthritis of left knee: Status: Acute Plan 64-year-old woman admitted by Orthopedic surgery and is status post left total knee arthroplasty Left total knee arthroplasty Management as per surgical team Pain management Hypertension Stable blood pressure Continue amlodipine, losartan Coronary artery disease Continue statin and metoprolol DVT prophylaxis with full-dose aspirin Full code Medical consultation complete. Will sign off
--- NOTE | 2025-04-19 19:05 | PC.NURSE ---
At approximately 1900 pt was able to stand pivot to [facility] with 1-2A and walker with good effort. Pt voided 200 ml concentrated yellow urine. When transferring back to bed, pt began to feel dizzy. Pt was able to transfer back into bed with 2A, VS stable see flow sheet for values. Pt currently in bed, bed alarm on, all safety measures in place, call gunter in reach.
[2025-04-19] MEDS: oxyCODONE HCl Immed Release 5 MG TABLET PO (19:32)
[2025-04-20 02:58] VITALS: BP 100/59; PULSE 77; RESP 17; TEMP 36; O2SAT 93
[2025-04-20] MEDS: oxyCODONE HCl Immed Release 5 MG TABLET PO ×3 (05:54→21:24)
[2025-04-20 07:06] LABS: Hematocrit 29.7 % (37.0-47.0); Hemoglobin 9.4 g/dl (12.0-16.0); Imm Gran Abs Auto 0.08 X10*3/uL (0.00-0.03); Imm Gran Pct Auto 0.5 % (0.0-0.4); Lymphocytes Absolute Auto 2.0 X10*3/uL (1.2-4.9); MANUAL DIFF FLAG SCAN; Mean Corpuscular HGB Conc 31.6 g/dl (31.0-35.0); Mean Corpuscular Hemoglobin 28.7 pg (27.0-33.0); Mean Corpuscular Volume 90.8 fL (80.0-98.0); NRBC Abs Auto 0.000 X10*3/uL (0.0-0.012); NRBC Pct Auto 0.0 /100WBC (0.0-0.2); Platelet Count 232 X10*3/uL (160-400); Red Blood Count 3.27 X10*6/uL (4.20-5.50); SCAN SMEAR FLAG 1; White Blood Count 15.7 X10*3/uL (4.8-10.8)
[2025-04-20 07:22] LABS: Anion Gap 12 (12-20); Blood Urea Nitrogen 19 mg/dL (9-16); Calcium 8.0 mg/dL (8.4-10.2); Carbon Dioxide 24 mmol/L (22-29); Chloride 108 mmol/L (96-108); Creatinine Clr Calc Pharmacy 93.6; Estimated Glomerular Filt Rate > 60; Potassium 4.5 mmol/L (3.3-5.1); Sodium 139 mmol/L (135-145)
[2025-04-20 07:56] VITALS: BP 110/58; PULSE 68; RESP 16; TEMP 36; O2SAT 96
--- NOTE | 2025-04-20 08:04 | PM.PNORT ---
Subjective Subjective Date of Service: 04/20/25 Interval history: POD1 s/p LTKA Patient is resting in bed comfortably No overnight events Pain is managed Patient reports that she went to the commode and felt dizzy/lightheaded No additional complaints Physical Exam Vital Signs: Vital Signs: Last Vital Signs Temp 96.8 F 04/20/25 07:56 Pulse 68 04/20/25 07:56 Resp 16 04/20/25 07:56 BP 110/58 L 04/20/25 07:56 Pulse Ox 96 04/20/25 07:56 O2 Del Method Room Air 04/20/25 07:56 O2 Flow Rate 2 04/19/25 18:52 BMI result Body Mass Index 34.8 Const: General: cooperative, healthy appearing and no acute distress Resp: Effort & Inspection: normal respiratory effort and able to speak in complete sentences Extrem: Other: left knee dressing is c/d/i. Able to dorsi/plantar flex. Calf is supple and nontender. Sensation intact. Pedal pulse intact. Psych: Appearance: grossly normal Mental Status: mental status grossly normal Attitude: cooperative Procedures Date of Service Date of Service: 04/20/25 Progress Note: A&P Assessment and plan (1) Status post total knee replacement, left: Status: Acute Plan Continue pain mgmnt Begin ASA for dvt ppx begin PT for LTKA - Patient reported lightheadedness/dizziness when getting up to use the commode. She reports that s/p RTKA she had vasovagal responses when attempting to ambulate. Spoke with P.T. at bedside will take caution. Will likely need another overnight stay. Dispo planning-Pending PT eval, pain mgmnt Time Spent With Patient Time: Total time managing care of this patient today ____ minutes. Quality Stroke Does the patient have a stroke diagnosis?: No VTE Prior VTE?: No VTE Risk Level:: Medical - moderate - high VTE Device Contraindication: N/A - Device Ordered VTE Drug Contraindication: N/A - Med Ordered
[2025-04-20] MEDS: oxyCODONE HCl ER 10 MG TAB.ER.12H PO ×2 (08:18→20:54)
[2025-04-20] MEDS: Metoprolol Succinate ER 25 MG TAB.ER.24H PO (08:19)
[2025-04-20] MEDS: Lactated Ringers 1,000 ML 100 ML IVCONT ×2 (08:23→17:07)
[2025-04-20 08:25] VITALS: BP 117/61; PULSE 66
--- NOTE | 2025-04-20 09:10 | HO.POSTANES ---
Post Anesthesia Evaluation Post Anesthesia Evaluation Date of Service: 04/20/25 Vital Signs: Vital Signs Temp Pulse Resp BP Pulse Ox O2 Del Method 04/20/25 08:25 66 117/61 04/20/25 07:56 96.8 F 68 16 110/58 L 96 Room Air 04/20/25 02:58 96.8 F 77 17 100/59 L 93 Room Air 04/19/25 23:17 96.8 F 71 17 109/59 L 93 Room Air Anesthesia: Spinal Mental Status: Awake Pain Control: Satisfactory Nausea/Vomiting: None Hydration: Adequate Anesthesia-Related Issues: No Anes. Related Issues
[2025-04-20] MEDS: Flu Vacc TS2025-26(6mo up)/PF 0.5 ML SYRINGE IM (09:27)
[2025-04-20 11:36] VITALS: BP 105/55; PULSE 70; RESP 16; TEMP 36.1; O2SAT 97
--- NOTE | 2025-04-20 15:17 | MHC.CM.PN ---
s/p L TKA Lives with her spouse Independent with all functional mobility baseline PT rec STR. Patient has been to [facility] in the past. She would like to return. A call was placed tothe ortho office to request made for an ot eval. UMANG Serrano via BLS.
[2025-04-20 15:26] VITALS: BP 91/55; PULSE 72; RESP 18; TEMP 36.1; O2SAT 94
--- NOTE | 2025-04-20 15:33 | PC.NURSE ---
Addendum entered by Yudi Caal RN 04/20/25 16:11: Per DANE Gayle hold BP meds at this time. Original Note: PA made aware via tiger text at 15:32 pt continues to have low BPs, last . Pt is asymptomatic while in bed, but feels dizzy at times with ambulation. Per [facility] reach out to Hospitalist. Donna Gayle made aware via tiger text, no new orders at this time.
[2025-04-20 19:23] VITALS: BP 110/55; PULSE 87; RESP 18; TEMP 36.1; O2SAT 96
[2025-04-21] VITALS (7 sets, daily range): BP systolic 102–137; BP diastolic 56–71; PULSE 73–96; RESP 16–18; TEMP 36.1–37.2; O2SAT 90–98
[2025-04-21] MEDS: Lactated Ringers 1,000 ML 100 ML IVCONT (04:30)
[2025-04-21 06:22] LABS: MANUAL DIFF FLAG NO
[2025-04-21 06:48] LABS: Anion Gap 10 (12-20); Blood Urea Nitrogen 15 mg/dL (9-16); Calcium 7.7 mg/dL (8.4-10.2); Carbon Dioxide 27 mmol/L (22-29); Chloride 107 mmol/L (96-108); Creatinine Clr Calc Pharmacy 93.6; Estimated Glomerular Filt Rate > 60; Potassium 4.2 mmol/L (3.3-5.1); Sodium 140 mmol/L (135-145)
[2025-04-21 07:06] LABS: Hematocrit 27.5 % (37.0-47.0); Hemoglobin 9.0 g/dl (12.0-16.0); Imm Gran Abs Auto 0.04 X10*3/uL (0.00-0.03); Imm Gran Pct Auto 0.4 % (0.0-0.4); Lymphocytes Absolute Auto 2.5 X10*3/uL (1.2-4.9); Mean Corpuscular HGB Conc 32.7 g/dl (31.0-35.0); Mean Corpuscular Hemoglobin 29.2 pg (27.0-33.0); Mean Corpuscular Volume 89.3 fL (80.0-98.0); NRBC Abs Auto 0.000 X10*3/uL (0.0-0.012); NRBC Pct Auto 0.0 /100WBC (0.0-0.2); Platelet Count 221 X10*3/uL (160-400); Red Blood Count 3.08 X10*6/uL (4.20-5.50); White Blood Count 10.4 X10*3/uL (4.8-10.8)
--- NOTE | 2025-04-21 07:21 | PM.PNORT ---
Subjective Subjective Date of Service: 04/21/25 Interval history: POD2 s/p LTKA Patient is resting in bed comfortably No overnight events Pain is managed No additional complaints Physical Exam Vital Signs: Vital Signs: Last Vital Signs Temp 97.7 F 04/21/25 03:26 Pulse 80 04/21/25 03:26 Resp 17 04/21/25 03:26 BP 102/57 L 04/21/25 03:26 Pulse Ox 90 L 04/21/25 03:26 O2 Del Method Room Air 04/21/25 03:26 O2 Flow Rate 2 04/19/25 18:52 BMI result Body Mass Index 34.8 Const: General: cooperative, healthy appearing and no acute distress Resp: Effort & Inspection: normal respiratory effort and able to speak in complete sentences Extrem: Other: left knee dressing is c/d/i. Able to dorsi/plantar flex. Calf is supple and nontender. Sensation intact. Pedal pulse intact. Psych: Appearance: grossly normal Mental Status: mental status grossly normal Attitude: cooperative Procedures Date of Service Date of Service: 04/21/25 Progress Note: A&P Assessment and plan (1) Status post total knee replacement, left: Status: Acute Plan Continue pain mgmnt Continue ASA for dvt ppx Continue PT for LTKA Dispo planning-Pending PT, pain mgmnt, rehab recommended - pending placement/auth - able to d/c once obtained Time Spent With Patient Time: Total time managing care of this patient today ____ minutes. Quality Stroke Does the patient have a stroke diagnosis?: No VTE Prior VTE?: No VTE Risk Level:: Medical - moderate - high VTE Device Contraindication: N/A - Device Ordered VTE Drug Contraindication: N/A - Med Ordered
[2025-04-21] MEDS: oxyCODONE HCl ER 10 MG TAB.ER.12H PO ×2 (07:22→21:00)
[2025-04-21] MEDS: oxyCODONE HCl Immed Release 5 MG TABLET PO ×2 (07:22→13:48)
--- NOTE | 2025-04-21 14:05 | MHC.CM.PN ---
[facility] HAS OFFERED A BED PENDING INSURANCE AUTH, AUTH PROCESS STARTED BY MELVI ONCE O.T. EVAL WAS COMPLETED. PT/FAMILY UPDATED ON PROGRESS. CM WILL CONTINUE TO AWAIT INSURANCE AUTH FOR AR.
[2025-04-21] MEDS: 0.9 % Sodium Chloride Flush 3 ML SYRINGE IVFLUSH ×2 (17:21→21:00)
--- NOTE | 2025-04-22 | ECG_ITS ---
Test Reason : abdominal pain Blood Pressure : */* mmHG Vent. Rate : 75 BPM Atrial Rate : 75 BPM P-R Int : 152 ms QRS Dur : 70 ms QT Int : 388 ms P-R-T Axes : 43 -14 7 degrees QTcB Int : 433 ms Normal sinus rhythm cannot exclude old Inferior infarct , age undetermined Abnormal ECG When compared with ECG of 16-Nov-2024 05:36, Nonspecific T wave abnormality now evident in Inferior leads Referred By: Ksenia Fowler Electronically Signed By: DEVIN KAUR
[2025-04-22 03:00] VITALS: BP 107/52; PULSE 77; RESP 18; TEMP 36.3; O2SAT 93
[2025-04-22 07:13] LABS: MANUAL DIFF FLAG NO
[2025-04-22 07:19] LABS: Hematocrit 29.7 % (37.0-47.0); Hemoglobin 9.5 g/dl (12.0-16.0); Imm Gran Abs Auto 0.03 X10*3/uL (0.00-0.03); Imm Gran Pct Auto 0.3 % (0.0-0.4); Lymphocytes Absolute Auto 2.5 X10*3/uL (1.2-4.9); Mean Corpuscular HGB Conc 32.0 g/dl (31.0-35.0); Mean Corpuscular Hemoglobin 29.5 pg (27.0-33.0); Mean Corpuscular Volume 92.2 fL (80.0-98.0); NRBC Abs Auto 0.000 X10*3/uL (0.0-0.012); NRBC Pct Auto 0.0 /100WBC (0.0-0.2); Platelet Count 231 X10*3/uL (160-400); Red Blood Count 3.22 X10*6/uL (4.20-5.50); White Blood Count 9.4 X10*3/uL (4.8-10.8)
[2025-04-22 07:38] LABS: Anion Gap 8 (12-20); Blood Urea Nitrogen 9 mg/dL (9-16); Calcium 8.3 mg/dL (8.4-10.2); Carbon Dioxide 32 mmol/L (22-29); Chloride 108 mmol/L (96-108); Creatinine Clr Calc Pharmacy 101.3; Estimated Glomerular Filt Rate > 60; Potassium 4.3 mmol/L (3.3-5.1); Sodium 144 mmol/L (135-145)
[2025-04-22 08:12] VITALS: BP 113/68; PULSE 79; RESP 18; TEMP 36.2; O2SAT 96
[2025-04-22] MEDS: oxyCODONE HCl ER 10 MG TAB.ER.12H PO ×2 (08:45→21:18)
[2025-04-22] MEDS: 0.9 % Sodium Chloride Flush 3 ML SYRINGE IVFLUSH ×2 (08:46→15:19)
[2025-04-22 09:51] VITALS: BP 113/68; PULSE 79; O2SAT 96
[2025-04-22 13:09] VITALS: BP 116/55; PULSE 83; RESP 18; TEMP 36.5; O2SAT 97
[2025-04-22 16:02] VITALS: BP 124/59; PULSE 72; RESP 18; TEMP 36.7; O2SAT 95
--- NOTE | 2025-04-22 17:53 | HO.PM.IMPN ---
Subjective Subjective Date of Service: 04/22/25 Interval History: Question of abdominal cramping Review of Systems Patient says she had abdominal cramping but improved Denies any nausea vomiting or abdominal pain currently Review of Systems: Yes all other systems are reviewed and are negative Physical Exam Exam: Exam: Appearance: Alert.? Oriented X3.? cvs: [id number], [id number] . res: clear to auscultation ,no rhonchii or wheezing abd: no rebound or guarding ,nt, bs present. ext left knee dressing is c/d/i. Able to dorsi/plantar flex. Calf is supple and nontender. Sensation intact. Pedal pulse intact. neuro: axo3 , nonfocal. Vital Signs: Vital Signs: Last Vital Signs Temp 98.1 F 04/22/25 16:02 Pulse 72 04/22/25 16:02 Resp 18 04/22/25 16:02 BP 124/59 L 04/22/25 16:02 Pulse Ox 95 04/22/25 16:02 O2 Del Method Room Air 04/22/25 16:02 O2 Flow Rate 2 04/19/25 18:52 BMI result Body Mass Index 34.8 Objective Data Active Medications Acetaminophen (Acetaminophen 325 Mg Tablet) 650 mg PO Q6H PRN PRN Reason: Pain, Mild 1-3,fever,headache Last Admin: 04/20/25 05:54 Dose: 650 mg Documented By: JUSTEN Aspirin (Aspirin 325 Mg Tablet) 325 mg PO Q12H [facility] Last Admin: 04/22/25 06:02 Dose: 325 mg Documented By: MARY Atorvastatin Calcium (Atorvastatin Calcium 80 Mg Tablet) 80 mg PO DAILY [facility] Last Admin: 04/22/25 08:45 Dose: 80 mg Documented By: TYRONE Calcium Carbonate (Calcium Carbonate 750 Mg Tab.Chew) 750 mg PO Q4H PRN PRN Reason: Heartburn Last Admin: 04/22/25 15:18 Dose: 750 mg Documented By: TYRONE Celecoxib (Celecoxib 200 Mg Capsule) 200 mg PO BID [facility] On Hold: 04/22/25 17:38 Last Admin: 04/22/25 08:45 Dose: 200 mg Documented By: TYRONE Docusate Sodium (Docusate Sodium 100 Mg Capsule) 100 mg PO BID [facility] Last Admin: 04/22/25 08:45 Dose: 100 mg Documented By: TYRONE Gabapentin (Gabapentin 100 Mg Capsule) 100 mg PO BEDTIME [facility] Last Admin: 04/21/25 21:00 Dose: 100 mg Documented By: MARY Hydromorphone HCl (Hydromorphone Hcl 0.5 Mg/0.5 Ml Syringe) 0.25 mg IVPUSH Q4H PRN; Protocol PRN Reason: Pain, Severe (Pain Scale 7-10) Last Admin: 04/19/25 22:03 Dose: 0.25 mg Documented By: JUSTEN Losartan Potassium (Losartan Potassium 25 Mg Tablet) 25 mg PO DAILY [facility]; Protocol On Hold: 04/20/25 16:19 Last Admin: 04/20/25 08:19 Dose: 25 mg Documented By: LINA Magnesium Hydroxide (Milk Of Magnesia 30 Ml Oral.Susp) 30 ml PO DAILY PRN PRN Reason: Constipation Methocarbamol (Methocarbamol 500 Mg Tablet) 500 mg PO TID [facility] On Hold: 04/22/25 17:41 Last Admin: 04/22/25 15:18 Dose: 500 mg Documented By: TYRONE Metoprolol Succinate (Metoprolol Succinate Er 25 Mg Tab.Er.24h) 25 mg PO DAILY [facility]; Protocol Last Admin: 04/20/25 08:19 Dose: 25 mg Documented By: LINA Naloxone HCl (Naloxone Hcl 0.4 Mg/Ml Vial) 0.04 mg IVPUSH Q5M PRN PRN Reason: Excessive sedation or RR < 8 Non-Formulary Medication (Semaglutide [Ozempic]) 1 mg SUBCUT Fr@0900 [facility] Oxycodone HCl (Oxycodone Hcl Immed Release 5 Mg Tablet) 5 mg PO Q4H PRN PRN Reason: Pain, Moderate(Pain Scale 4-6) Last Admin: 04/21/25 13:48 Dose: 5 mg Documented By: BEATRIZ Oxycodone HCl (Oxycodone Hcl Er 10 Mg Tab.Er.12h) 10 mg PO BID [facility] Last Admin: 04/22/25 08:45 Dose: 10 mg Documented By: TYRONE Polyethylene Glycol (Polyethylene Glycol 3350 17 Gm Powd.Pack) 17 gm PO DAILY PRN PRN Reason: Constipation Last Admin: 04/20/25 15:32 Dose: 17 gm Documented By: LINA Sodium Chloride (0.9 % Sodium Chloride Flush 3 Ml Syringe) 3 ml IVFLUSH QSHIFT [facility] Last Admin: 04/22/25 15:19 Dose: 3 ml Documented By: TYRONE Labs 04/22/25 05:48 04/22/25 18:26 Labs: Laboratory Results - last 24 hr 04/22/25 05:48 MCV 92.2 MCH 29.5 MCHC 32.0 RDW 12.6 Plt Count 231 MPV 11.6 Immature Gran % (Auto) 0.3 Neut % (Auto) 56.8 Lymph % (Auto) 26.3 [place] % (Auto) 10.2 Eos % (Auto) 6.1 H Baso % (Auto) 0.3 Lymph # (Auto) 2.5 [place] # (Auto) 1.0 Eos # (Auto) 0.6 H Baso # (Auto) 0.0 Abs Immat Gran (auto) 0.03 Absolute Neuts (auto) 5.3 Absolute Nucleated RBC 0.000 Nucleated RBC % (auto) 0.0 Anion Gap 8 L Estim Creat Clear Calc 101.3 Estimated GFR > 60 Fasting Glucose 92 Calcium 8.3 L D Assessment and Plan (1) Abdominal cramping: Status: Acute Assessment and Plan: 64-year-old woman admitted by Orthopedic surgery and is status post left total knee arthroplasty abd cramping: Intermittent Denies any nausea vomiting, eating okay had BM 2 days back ivf ,hold musle relaxant, antacid, celecoxib. CMP, lipase seems fine, troponin negative, EKG unchanged We will continue to monitor, KUB orderd -night staff will follow kub and patient clinically. Left total knee arthroplasty Management as per surgical team Pain management Hypertension-softer blood pressure started metoprolol, hold losartan Coronary artery disease Continue statin and metoprolol DVT prophylaxis with aspirin primary team. Full code Quality Stroke Does the patient have a stroke diagnosis?: No VTE Prior VTE?: No VTE Risk Level:: Medical - moderate - high VTE Device Contraindication: N/A - Device Ordered VTE Drug Contraindication: N/A - Med Ordered
[2025-04-22] MEDS: Lactated Ringers 1,000 ML 100 ML IVCONT (18:15)
[2025-04-22 18:56] LABS: Alanine Aminotransferase 12 U/L (0-31); Albumin Level 3.3 g/dL (3.5-5.0); Alkaline Phosphatase 79 U/L (39-117); Anion Gap 8 (12-20); Aspartate Amino Transferase 25 U/L (5-31); Blood Urea Nitrogen 11 mg/dL (9-16); Calcium 8.8 mg/dL (8.4-10.2); Carbon Dioxide 32 mmol/L (22-29); Chloride 104 mmol/L (96-108); Creatinine Clr Calc Pharmacy 102.9; Estimated Glomerular Filt Rate > 60; Lipase 33 U/L (8-78); Potassium 4.3 mmol/L (3.3-5.1); Sodium 140 mmol/L (135-145); Total Protein 5.6 g/dL (6.5-8.0)
[2025-04-22 19:03] LABS: Troponin-I High Sensitivity 4.2 ng/L (<3.5-17.0)
[2025-04-22 19:59] VITALS: BP 128/50; PULSE 84; RESP 18; TEMP 36.5; O2SAT 97
--- NOTE | 2025-04-22 22:44 | PM.EVENT ---
Event Note Date of Service: 04/22/25 Event Note: 10:40 pm - patient lying in bed comfortably. Vital signs stable. Denied abdominal pain, nausea or vomiting at this time. She mentioned that during the evening she had an event of epigastric squeezing pain that resolved spontaneously. Abdominal exam: Increased bowel sounds, no distention and no tenderness to palpation. Her LFTs and lipase are normal. KUB showed moderate stool without bowel distention. She has been taking Dulcolax and MiraLax. We will start treatment with Bentyl with meals and add Senokot at bedtime. Time Spent With Patient Time: Total time managing care of this patient today ____ minutes.
[2025-04-23] VITALS (7 sets, daily range): BP systolic 118–152; BP diastolic 57–73; PULSE 75–95; RESP 16–20; TEMP 36.2–37; O2SAT 93–97
[2025-04-23] MEDS: Lactated Ringers 1,000 ML 100 ML IVCONT (03:59)
[2025-04-23 06:03] LABS: MANUAL DIFF FLAG NO
[2025-04-23 06:23] LABS: Hematocrit 27.1 % (37.0-47.0); Hemoglobin 8.9 g/dl (12.0-16.0); Imm Gran Abs Auto 0.04 X10*3/uL (0.00-0.03); Imm Gran Pct Auto 0.4 % (0.0-0.4); Lymphocytes Absolute Auto 2.7 X10*3/uL (1.2-4.9); Mean Corpuscular HGB Conc 32.8 g/dl (31.0-35.0); Mean Corpuscular Hemoglobin 29.7 pg (27.0-33.0); Mean Corpuscular Volume 90.3 fL (80.0-98.0); NRBC Abs Auto 0.000 X10*3/uL (0.0-0.012); NRBC Pct Auto 0.0 /100WBC (0.0-0.2); Platelet Count 233 X10*3/uL (160-400); Red Blood Count 3.00 X10*6/uL (4.20-5.50); White Blood Count 9.9 X10*3/uL (4.8-10.8)
[2025-04-23 06:31] LABS: Anion Gap 9 (12-20); Blood Urea Nitrogen 9 mg/dL (9-16); Calcium 8.4 mg/dL (8.4-10.2); Carbon Dioxide 30 mmol/L (22-29); Chloride 106 mmol/L (96-108); Creatinine Clr Calc Pharmacy 108.4; Estimated Glomerular Filt Rate > 60; Potassium 4.1 mmol/L (3.3-5.1); Sodium 141 mmol/L (135-145)
[2025-04-23] MEDS: oxyCODONE HCl ER 10 MG TAB.ER.12H PO (07:58)
[2025-04-23] MEDS: Metoprolol Succinate ER 25 MG TAB.ER.24H PO (07:58)
--- NOTE | 2025-04-23 08:52 | PM.PNORT ---
Subjective Subjective Date of Service: 04/22/25 Interval history: POD3 s/p LTKA Patient is resting in bed comfortably No overnight events Pain is managed She does have some belly pain, states she had BM POD 2 and is passing gas denies n/v Physical Exam Vital Signs: Vital Signs: Last Vital Signs Temp 97.7 F 04/23/25 08:01 Pulse 75 04/23/25 08:01 Resp 16 04/23/25 08:01 BP 140/68 H 04/23/25 08:01 Pulse Ox 95 04/23/25 08:01 O2 Del Method Room Air 04/23/25 08:01 O2 Flow Rate 2 04/19/25 18:52 BMI result Body Mass Index 34.8 Const: General: cooperative, healthy appearing and no acute distress Resp: Effort & Inspection: normal respiratory effort and able to speak in complete sentences Extrem: Other: left knee dressing is c/d/i. Able to dorsi/plantar flex. Calf is supple and nontender. Sensation intact. Pedal pulse intact. Psych: Appearance: grossly normal Mental Status: mental status grossly normal Attitude: cooperative Procedures Date of Service Date of Service: 04/23/25 Progress Note: A&P Assessment and plan (1) Status post total knee replacement, left: Status: Acute Plan Continue pain mgmnt Continue ASA for dvt ppx Continue PT for LTKA encouraged OOB and inc fluid intake -informed patient Narcotics can cause GI upset Dispo planning-Pending PT, pain mgmnt, rehab recommended - pending placement/auth - able to d/c once obtained Time Spent With Patient Time: Total time managing care of this patient today ____ minutes. Quality Stroke Does the patient have a stroke diagnosis?: No VTE Prior VTE?: No VTE Risk Level:: Medical - moderate - high VTE Device Contraindication: N/A - Device Ordered VTE Drug Contraindication: N/A - Med Ordered
--- NOTE | 2025-04-23 08:54 | PM.PNORT ---
Subjective Subjective Date of Service: 04/23/25 Interval history: POD4 s/p LTKA Patient is resting in bed comfortably No overnight events Pain is managed C/O abd cramping - Medicine placed GI Consult and added stool softeners/laxatives No additional complaints Physical Exam Vital Signs: Vital Signs: Last Vital Signs Temp 97.7 F 04/23/25 08:01 Pulse 75 04/23/25 08:01 Resp 16 04/23/25 08:01 BP 140/68 H 04/23/25 08:01 Pulse Ox 95 04/23/25 08:01 O2 Del Method Room Air 04/23/25 08:01 O2 Flow Rate 2 04/19/25 18:52 BMI result Body Mass Index 34.8 Const: General: cooperative, healthy appearing and no acute distress Resp: Effort & Inspection: normal respiratory effort and able to speak in complete sentences Extrem: Other: left knee dressing is c/d/i. Able to dorsi/plantar flex. Calf is supple and nontender. Sensation intact. Pedal pulse intact. Psych: Appearance: grossly normal Mental Status: mental status grossly normal Attitude: cooperative Procedures Date of Service Date of Service: 04/23/25 Progress Note: A&P Assessment and plan (1) Status post total knee replacement, left: Status: Acute Plan Continue pain mgmnt Continue ASA for dvt ppx Continue PT for LTKA encouraged OOB and inc fluid intake -informed patient Narcotics can cause GI upset GI Consult pending Dispo planning-PT, GI Consult pending, pain managment - D/C plan is now home with services- patient has a high copay Time Spent With Patient Time: Total time managing care of this patient today ____ minutes. Quality Stroke Does the patient have a stroke diagnosis?: No VTE Prior VTE?: No VTE Risk Level:: Medical - moderate - high VTE Device Contraindication: N/A - Device Ordered VTE Drug Contraindication: N/A - Med Ordered
--- NOTE | 2025-04-23 10:34 | P.F2F_ITS ---
Service Date Service Date: 04/23/25 Encounter Date of encounter: 04/23/25 Reasons for Services Signs and symptoms assessed: Weakness, poor balance, poor gait mechanics Reason for physical therapy: home safety and mobility, therapeutic exercises, restore joint function, gait/transfer training, assess need for DME, ADL training and energy conservation Reason for occupational therapy: home safety and mobility, therapeutic exercises, restore joint function, gait/transfer training, ADL training and energy conservation Overseeing Care: Miguel Dickson Homebound: Leaving the home is medically contraindicated at this time without the asist of a device and/or another person due th the listed conditions above and below. Reason homebound: unsteady gait / fall risk, pain with ambulation, poor balance / fall risk and unable to drive Homebound supporting statement: Pt. is considered home bound due to recent surgery. Unable to drive, poor balance, poor gait mechanics. Certification: Based on the above findings, I certify that this patient is confined to the home and needs intermittent care home care, physical therapy and/or speech therapy, or continues to need occupational therapy. The patient is under my care, and I have initiated the establishment of the plan of care. The patient will be followed by a physician who will periodically review the plan of care. Time Spent With Patient Time: Total time managing care of this patient today ____ minutes.
--- NOTE | 2025-04-23 10:56 | MHC.CM.PN ---
PT INFORMED THERE WILL BE A LARGE DEDUCTIBLE IF SHE GOES TO REHAB, SHE WOULD LIKE TO DC HOME WITH [facility] FAMILY TO TRANSPORT
--- NOTE | 2025-04-23 11:18 | P.F2F_ITS ---
Service Date Service Date: 04/23/25 Encounter Date of encounter: 04/23/25 Reasons for Services Signs and symptoms assessed: s/p LTKA Pt. is considered homebound due to recent surgery. Unable to drive, poor balance, poor gait mechanics. Reason for physical therapy: home safety and mobility, therapeutic exercises, restore joint function, gait/transfer training and ADL training Homebound: Leaving the home is medically contraindicated at this time without the asist of a device and/or another person due th the listed conditions above and below. Reason homebound: unsteady gait / fall risk, leg weakness, pain with ambulation, pain with transfers, poor balance / fall risk and unable to drive Certification: Based on the above findings, I certify that this patient is confined to the home and needs intermittent retirement care, physical therapy and/or speech th erapy, or continues to need occupational therapy. The patient is under my care, and I have initiated the establishment of the plan of care. The patient will be followed by a physician who will periodically review the plan of care. Time Spent With Patient Time: Total time managing care of this patient today ____ minutes.
--- NOTE | 2025-04-23 16:54 | HO.PM.IMPN ---
Subjective Subjective Date of Service: 04/23/25 Interval History: Constipation/cramping Review of Systems Seems to be improved significantly did not had much cramping over the later No abdominal pain Tolerating diet, passing gases, last BM 2 days ago Physical Exam Exam: Exam: Appearance: Alert.? Oriented X3.? cvs: rrr, [id number] . res: clear to auscultation ,no rhonchii or wheezing abd: no rebound or guarding ,nt, bs present. ext left knee dressing is c/d/i. Able to dorsi/plantar flex. Calf is supple and nontender. Sensation intact. Pedal pulse intact. neuro: axo3 , nonfocal. Vital Signs: Vital Signs: Last Vital Signs Temp 98.0 F 04/23/25 16:07 Pulse 91 04/23/25 16:07 Resp 20 04/23/25 16:07 BP 152/66 H 04/23/25 16:07 Pulse Ox 97 04/23/25 16:07 O2 Del Method Room Air 04/23/25 16:07 O2 Flow Rate 2 04/19/25 18:52 BMI result Body Mass Index 34.8 Objective Data Active Medications Acetaminophen (Acetaminophen 325 Mg Tablet) 650 mg PO Q6H PRN PRN Reason: Pain, Mild 1-3,fever,headache Last Admin: 04/20/25 05:54 Dose: 650 mg Documented By: JUSTEN Aspirin (Aspirin 325 Mg Tablet) 325 mg PO Q12H [facility] Last Admin: 04/23/25 06:13 Dose: 325 mg Documented By: MARY Atorvastatin Calcium (Atorvastatin Calcium 80 Mg Tablet) 80 mg PO DAILY [facility] Last Admin: 04/23/25 07:58 Dose: 80 mg Documented By: TYRONE Celecoxib (Celecoxib 200 Mg Capsule) 200 mg PO BID [facility] On Hold: 04/22/25 17:38 Last Admin: 04/22/25 08:45 Dose: 200 mg Documented By: TYRONE Dicyclomine HCl (Dicyclomine Hcl 10 Mg Capsule) 10 mg PO QIDACHS [facility] Last Admin: 04/23/25 11:50 Dose: 10 mg Documented By: TYRONE Docusate Sodium (Docusate Sodium 100 Mg Capsule) 100 mg PO BID [facility] Last Admin: 04/23/25 07:58 Dose: 100 mg Documented By: TYRONE Gabapentin (Gabapentin 100 Mg Capsule) 100 mg PO BEDTIME [facility] Last Admin: 04/22/25 21:18 Dose: 100 mg Documented By: MARY Hydromorphone HCl (Hydromorphone Hcl 0.5 Mg/0.5 Ml Syringe) 0.25 mg IVPUSH Q4H PRN; Protocol PRN Reason: Pain, Severe (Pain Scale 7-10) Last Admin: 04/19/25 22:03 Dose: 0.25 mg Documented By: JUSTEN Lactated Ringer's (Lr) 1,000 mls @ 100 mls/hr IVCONT .Q10H [facility] Last Infusion: 04/23/25 15:07 Dose: Infused Documented By: TYRONE Losartan Potassium (Losartan Potassium 25 Mg Tablet) 25 mg PO DAILY [facility]; Protocol On Hold: 04/20/25 16:19 Last Admin: 04/20/25 08:19 Dose: 25 mg Documented By: LINA Magnesium Hydroxide (Milk Of Magnesia 30 Ml Oral.Susp) 30 ml PO DAILY PRN PRN Reason: Constipation Methocarbamol (Methocarbamol 500 Mg Tablet) 500 mg PO TID [facility] On Hold: 04/22/25 17:41 Last Admin: 04/22/25 15:18 Dose: 500 mg Documented By: TYRONE Metoprolol Succinate (Metoprolol Succinate Er 25 Mg Tab.Er.24h) 25 mg PO DAILY [facility]; Protocol Last Admin: 04/23/25 07:58 Dose: 25 mg Documented By: TYRONE Naloxone HCl (Naloxone Hcl 0.4 Mg/Ml Vial) 0.04 mg IVPUSH Q5M PRN PRN Reason: Excessive sedation or RR < 8 Non-Formulary Medication (Semaglutide [Ozempic]) 1 mg SUBCUT Fr@0900 [facility] Omeprazole (Omeprazole 20 Mg Capsule.Dr) 20 mg PO DAILY@0630 [facility] Oxycodone HCl (Oxycodone Hcl Immed Release 5 Mg Tablet) 5 mg PO Q4H PRN PRN Reason: Pain, Moderate(Pain Scale 4-6) Last Admin: 04/21/25 13:48 Dose: 5 mg Documented By: BEATRIZ Oxycodone HCl (Oxycodone Hcl Er 10 Mg Tab.Er.12h) 10 mg PO BID [facility] Last Admin: 04/23/25 07:58 Dose: 10 mg Documented By: TYRONE Polyethylene Glycol (Polyethylene Glycol 3350 17 Gm Powd.Pack) 17 gm PO DAILY PRN PRN Reason: Constipation Last Admin: 04/20/25 15:32 Dose: 17 gm Documented By: LINA Senna (Sennosides 8.6 Mg Tablet) 8.6 mg PO BEDTIME [facility] Last Admin: 04/23/25 00:04 Dose: 8.6 mg Documented By: MARY Sodium Biphosphate/Sodium Phosphate (Sodium Phosphate,[place]-Dibasic 133 Ml Enema) 133 ml [place] ONCE PRN PRN Reason: Constipation Sodium Chloride (0.9 % Sodium Chloride Flush 3 Ml Syringe) 3 ml IVFLUSH QSHIFT [facility] Last Admin: 04/23/25 15:07 Dose: Not Given Documented By: TYRONE Non-Admin Reason: IV Running Labs 04/23/25 05:49 04/23/25 05:49 Labs: Laboratory Results - last 24 hr 04/22/25 04/23/25 18:26 05:49 MCV 90.3 MCH 29.7 MCHC 32.8 RDW 12.6 Plt Count 233 MPV 11.1 Immature Gran % (Auto) 0.4 Neut % (Auto) 55.3 Lymph % (Auto) 26.9 [place] % (Auto) 9.1 Eos % (Auto) 8.1 H Baso % (Auto) 0.2 Lymph # (Auto) 2.7 [place] # (Auto) 0.9 Eos # (Auto) 0.8 H Baso # (Auto) 0.0 Abs Immat Gran (auto) 0.04 H Absolute Neuts (auto) 5.5 Absolute Nucleated RBC 0.000 Nucleated RBC % (auto) 0.0 Anion Gap 8 L 9 L Estim Creat Clear Calc 102.9 108.4 Estimated GFR > 60 > 60 Random Glucose 122 H Fasting Glucose 112 H Calcium 8.8 D 8.4 Total Bilirubin 0.7 AST 25 ALT 12 Alkaline Phosphatase 79 Troponin I High Sens 4.2 D Total Protein 5.6 L Albumin 3.3 L Lipase 33 Assessment and Plan (1) Abdominal cramping: Status: Acute Assessment and Plan: 64-year-old woman admitted by Orthopedic surgery and is status post left total knee arthroplasty abd cramping: Intermittent Denies any nausea vomiting, eating okay had BM 2 days back ivf ,hold musle relaxant, antacid, celecoxib. CMP, lipase seems fine, troponin negative, EKG unchanged. Abdominal cramping seems to be improved, briefly discussed with GI seems likely related constipation. Patient is asymptomatic now Will be going home with p.o. laxatives, outpatient GI follow up. Left total knee arthroplasty Management as per surgical team Pain management Hypertension-softer blood pressure started metoprolol, hold losartan Coronary artery disease Continue statin and metoprolol DVT prophylaxis with aspirin primary team. Full code Quality Stroke Does the patient have a stroke diagnosis?: No VTE Prior VTE?: No VTE Risk Level:: Medical - moderate - high VTE Device Contraindication: N/A - Device Ordered VTE Drug Contraindication: N/A - Med Ordered
[2025-04-23] MEDS: Milk of Magnesia 30 ML ORAL.SUSP PO (16:57)
== END 2025-04-23 17:48 | disposition home health service (06) ==
LOC: HO.SSS 09:43 → HO.S3 12:31
PROVIDERS: Internal Medicine; Physician Assistant; Visit Provider Orthopaedic Surgery
PROC: (CPT 27447; principal; 2025-04-19 07:30)
DX: M17.12 Unilateral primary osteoarthritis, left knee (principal); M25.562 Pain in left knee; R26.2 Difficulty in walking, not elsewhere classified; R10.84 Generalized abdominal pain; K59.00 Constipation, unspecified; Z96.651 Presence of right artificial knee joint; I10 Essential (primary) hypertension; I25.10 Atherosclerotic heart disease of native coronary artery without angina pectoris; I25.2 Old myocardial infarction; Z95.5 Presence of coronary angioplasty implant and graft; J45.909 Unspecified asthma, uncomplicated; M54.9 Dorsalgia, unspecified; Z23 Encounter for immunization; Z79.899 Other long term (current) drug therapy; Z79.82 Long term (current) use of aspirin; Z79.85 Long-term (current) use of injectable non-insulin antidiabetic drugs; Z91.040 Latex allergy status; R20.0 Anesthesia of skin; Z98.890 Other specified postprocedural states; Z56.0 Unemployment, unspecified
CPT/HCPCS: 27447; 36415; 74018; 80048; 80053; 83690; 84484; 85025; 85027; 86850; 86900; 86901; 87640; 87641; 88305; 88311; 90656; 93005; 97110; 97116; 97162; 97166; 97530; 97535; A6260; C1776; J0131; J0665; J0690; J1100; J1171; J2003; J2250; J2371; J2405; J2704; J3374; J7120

== ENCOUNTER → 2025-04-19 06:13 | Outpatient (BNV) | payer OTHER, SELFPAY | PROVIDERS: Visit Provider Orthopaedic Surgery | DX: Z47.1 Aftercare following joint replacement surgery (principal); Z96.652 Presence of left artificial knee joint | CPT/HCPCS: 27447; 99024; G0180 ==

== ENCOUNTER → 2025-04-19 06:13 | Outpatient (BNV) | payer OTHER, SELFPAY | PROVIDERS: Visit Provider Nurse Practitioner Acute Care | DX: R10.9 Unspecified abdominal pain (principal) | CPT/HCPCS: 99222; 99231; 99499 ==

== ENCOUNTER → 2025-04-22 18:18 | Outpatient (BNV) | payer OTHER, SELFPAY | PROVIDERS: Visit Provider Internal Medicine | DX: R94.31 Abnormal electrocardiogram [ECG] [EKG] (principal); R10.9 Unspecified abdominal pain | CPT/HCPCS: 93010 ==

== ENCOUNTER → 2025-04-22 21:40 | Outpatient (BNV) | payer OTHER, SELFPAY | PROVIDERS: Visit Provider Radiology Diagnostic Radiology | DX: R10.9 Unspecified abdominal pain (principal) | CPT/HCPCS: 74018 ==

== ENCOUNTER 2025-05-05 08:22 | Outpatient (REF) | payer OTHER, SELFPAY ==
--- NOTE | ~2025-05-05 | XR_ITS ---
EXAMINATION: XR KNEE, LEFT CLINICAL INFORMATION: M25.562 - Pain in left knee COMPARISON: X-ray 05/26/2024 TECHNIQUE: AP bilateral knees one view. Left knee 2 views. FINDINGS: Left knee: Status post total knee arthroplasty, with usual position and alignment. No acute periprosthetic fracture. Suprapatellar density could be related to overlapping densities versus joint effusion..Air in the soft tissues. Skin easton. Right knee: Total knee arthroplasty. No findings to suggest hardware failure. No acute fracture. Multiple radiopaque densities projected over bilateral femurs on the frontal radiograph, could be overlying the patient. XR/XR knee LT 3V IMPRESSION: Left knee: Postsurgical changes from total knee arthroplasty. No evidence of acute periprosthetic fracture. Right knee: Total knee arthroplasty. No acute osseous findings on the single frontal radiograph. Electronically signed by: Eric Diggs MD 05/05/2025 10:48 AM EDT
--- OUTSIDE RECORDS SUMMARY | 2025-05-06 08:37 | XMS_ITS | Patient Health Record ---
[facility] [place] Address [address] [place] [address] Care Team Providers Care Delivery Assistant Name Role Phone Germania Ruffin Primary Care Provider Kelvin Sullivan Unavailable [phone] Allergies Allergen (clinical drug ingredient) Drug/Non Drug [...] Insured Coverage Start Date Coverage End Date [facility] [facility] [address] [place] [address] [id number] Brittani Mello Self - patient is the insured Medical (General) History Medical History History ICD Code asthma Back,Hip,and Knee pain Measles Mumps Chicken pox osteoarthritis Varicose veins Bunion Plantar fasciitis Surgical History Surgery Date(Month/Year) section 1993, 1996 appendectomy 2006
== END 2025-05-05 08:23 | disposition home or self-care (01) ==
LOC: HO.HOSX 08:22
PROVIDERS: Visit Provider Physician Assistant
DX: Z96.652 Presence of left artificial knee joint (principal); Z79.899 Other long term (current) drug therapy; Z79.891 Long term (current) use of opiate analgesic; Z79.82 Long term (current) use of aspirin
CPT/HCPCS: 73562

== ENCOUNTER 2025-05-05 10:07 | Outpatient (AMB) | payer OTHER, SELFPAY ==
--- NOTE | 2025-05-05 10:21 | MHC.OFFVIS ---
Intake Visit Reasons: in OR:2WKPO: L TKA w/ 04/19/25 Intake Note: Brittani is a 64 year old female who presents today for a post operative visit after undergoing a left total knee arthroplasty, performed by Dr. Dickson on 04/19/25. Patient reports pain that is located in her thigh and calf area. Her current pain level is 4-5 out of 10. She uses oxycodone at night, and ibuprofen/Tylenol throughout the day. Allergies latex Allergy (Verified 05/05/25 10:25) hives, swelling Medication List - Last Reconciled 05/05/25 by Vernell Liz PA-C acetaminophen 650 mg (2 x 325 mg) PO Q6H PRN 30 days aspirin 325 mg PO Q12H 42 days aspirin 81 mg PO DAILY atorvastatin 80 mg PO DAILY dicyclomine 10 mg PO QIDACHS 30 days docusate sodium 100 mg PO BID 30 days gabapentin 100 mg PO BEDTIME 7 days losartan 25 mg PO DAILY metoprolol succinate ER (Toprol XL) 25 mg PO DAILY oxycodone 5 mg PO Q4H PRN 7 days polyethylene glycol 3350 (Miralax) 17 grams PO DAILY PRN semaglutide (Ozempic) 1 mg subcut QWEEK sennosides (Senna Lax) 8.6 mg PO BEDTIME 30 days therapeutic multivitamin 1 tab PO DAILY walker (Ultra-Light Rollator misc) As directed walker Folding front wheeled walker HPI HPI in OR:2WKPO: L TKA w/ 04/19/25: Details: 64 yo female returns to the office today s/p left total knee arthroplasty with Dr. Dickson. She continues to work with physical therapy and is transitioning to outpatient physical therapy. She does notice some discomfort in the quad and has weakness with straightening the leg. She states she has a bowel movement every other day and continues to take the stool softeners. She also continues with the oxycodone once or twice a day. [facility] Medical History (Updated 05/01/25 @ 00:01 by Bertha Henao) Back pain Numbness Myocardial infarction HTN (hypertension) Asthma Surgical History H/O colonoscopy History of appendectomy History of 2 sections History of total right knee replacement (~10/24/23) History of heart artery stent Family History Brother Heart attack Sister Stented coronary artery Social History Household Members: Spouse Housing: House Are you a primary reproductive healthcare assistant to a significant other at home: No Do you presently have visiting nurse or other home services: No Alcohol intake: never Patient Tobacco Use Status: Never used Tobacco e-Cigarette/Vaping Use: Never Used Second Hand Smoke Exposure: No service: No Current occupational status: unemployed Cognitive needs: No Hearing needs: No Vision needs: No Review of Systems Const All systems reviewed & are unremarkable except as noted in HPI and below Physical Exam Extrem Other: Left knee incision clean dry and intact. No erythema or swelling. She has full range of motion. She does activate the quad but has significant weakness. Calf supple and nontender neurovascularly intact. Results Reviewed Results Reviewed: X-rays of the left knee obtained in the office today and reviewed by me show intact total knee prosthesis Assessment & Plan Assessment & Plan (1) Status post total knee replacement, left: Code(s): Z96.652 - Presence of left artificial knee joint Category: Surgical Plan: [place] removed today Steri-Strips applied. The patient will continue with physical therapy on an outpatient basis. A prescription for amoxicillin was sent to the pharmacy along with oxycodone. She does understand she needs to wait 3 months postop to have a dental visit. She will see us back in [address] Dickson, sooner if needed. Orders: Orders XR knee LT 3V Today M25.562 - Pain in left knee Medications: New amoxicillin take 4 capsules 1 hr prior to dental procedure 2,000 mg (4 x 500 mg) PO ONCE 4 tabs 3RF 1 day Coding Level of Care Code Global (36287) Diagnoses Status post total knee replacement, left Z96.652
--- OUTSIDE RECORDS SUMMARY | 2025-05-05 11:54 | XMS_ITS | Encounter Summary ---
Author Organization [facility] Address [address] [place] [address] [place] [id number] Phone Care Team Providers Care Electroplating Technician Name Role Phone Marianela Farris MD, MPH Primary Care Provid er Encounter Details Date Type Department Care Team (Late st Contact Info) Description 05/14/2023 Procedure Pass [facility] PERIOPERATIVE DEPT [address] [place] [address] Social History Tobacco Use Types [...] 9:23 PM EDT Ramonita Aj RN * [place] Suicide Severity Rating Scale (Screener/Recent Self-Report) Question [...] documented as of this encounter Care Teams Electroplating Technician Relationship Specialty Start Date End Date Marianela Farris MD, MPH [address] [place] [address] [email or web address] PCP - General Family Medicine 12/05/20 documented as of this encounter Additional Source Comments The information contained in this document represents components of the legal health record. It is not the complete legal health record.[facility]
--- OUTSIDE RECORDS SUMMARY | 2025-05-05 11:54 | XMS_ITS | Encounter Summary ---
Author Organization [facility] Address [address] [place] [address] [place] [address] Phone Care Team Providers Care Health Policy Nurse Name Role Phone Marianela Farris MD, MPH Primary Care Provid er Encounter Details Date Type Department Care Team (Late st Contact Info) Description 02/24/2021 Procedure Pass [facility] [address] [place] [address] Social History Tobacco Use Types Packs/Day Years [...] 2:22 AM EDT Lashaun Roche RN * [place] Suicide Severity Rating Scale (Screener/Recent Self-Report) Question [...] documented as of this encounter Care Teams Health Policy Nurse Relationship Specialty Start Date End Date Marianela Farris MD, MPH [address] [place] [address] [email or web address] PCP - General Family Medicine 12/05/20 documented as of this encounter Additional Source Comments The information contained in this document represents components of the legal health record. It is not the complete legal health record.[facility]
--- OUTSIDE RECORDS SUMMARY | 2025-05-05 11:54 | XMS_ITS | Encounter Summary ---
Author Organization [facility] Address [address] [place] [address] [place] [address] Phone Care Team Providers Care Steam Shovel Runner Name Role Phone Marianela Farris MD, MPH Primary Care Provid er Encounter Details Date Type Department Care Team (Late st Contact Info) Description 04/11/2023 Transcribe Orders [facility] [address] [place], [place] [id number] Sonam Prater, PROFESSIONAL SERVICES MANAGER [address] [address] [email or web address] Social History Tobacco Use Types Packs/Day Years [...] as of this encounter Care Teams Steam Shovel Runner Relationship Specialty Start Date End Date Marianela Farris MD, MPH [address] [place] [address] [email or web address] PCP - General Family Medicine 12/05/20 documented as of this encounter Additional Source Comments The information contained in this document represents components of the legal health record. It is not the complete legal health record.[facility]
--- OUTSIDE RECORDS SUMMARY | 2025-05-05 11:54 | XMS_ITS | Encounter Summary ---
Author Organization [facility] Address [address] [place] [address] Phone Care Team Providers Care Retina Subspecialist Name Role Phone Marianela Farris MD, MPH Primary Care Provid er Encounter Details Date Type Department Care Team (Latest Contact Info) Description 04/18/2022 Ancillary Orders [facility] Orthopedics & Sports Medicine [address] [place] [address] Allen Greenberg MD [address] [place] [address] [email or web address] Primary osteoarthritis of right knee Social History [...] documented as of this encounter Care Teams Retina Subspecialist Relationship Specialty Start Date End Date Marianela Farris MD, MPH [address] [place] [address] PCP - General Family Medicine 12/05/20 documented as of this encounter Additional Source Comments The information contained in this document represents components of the legal health record. It is not the complete legal health record.[facility]
--- OUTSIDE RECORDS SUMMARY | 2025-05-05 11:54 | XMS_ITS | Encounter Summary ---
Author Organization [facility] Address [address] [facility] [place] [address] Phone Care Team Providers Care Combat Systems Engineer Name Role Phone Marianela Farris MD, MPH Primary Care Provid er Encounter Details Date Type Department Care Team (Late st Contact Info) Description 03/21/2023 Telephone [facility] 2013 [facility], [facility] [address] [place] [address] Sonam Prater, WATER AEROBICS INSTRUCTOR [address] [address] [email or web address] Social History Tobacco Use Types Packs/Day Years [...] documented as of this encounter Care Teams Combat Systems Engineer Relationship Specialty Start Date End Date Marianela Farris MD, MPH [address] [place] [address] [email or web address] PCP - General Family Medicine 12/05/20 documented as of this encounter Additional Source Comments The information contained in this document represents components of the legal health record. It is not the complete legal health record.[facility]
--- OUTSIDE RECORDS SUMMARY | 2025-05-05 11:54 | XMS_ITS | Encounter Summary ---
Author Organization [facility] Address [address] [place] [address] Phone Care Team Providers Care Carbon Electrodes Supervisor Name Role Phone Marianela Farris MD, MPH Primary Care Provid er Encounter Details Date Type Department Care Team (Late st Contact Info) Description 04/18/2022 Ancillary Orders [facility] Orthopedics & Sports Medicine [address] [place] [address] Allen Greenberg MD [address] [place] [address] [email or web address] Social History Tobacco Use Types [...] documented as of this encounter Care Teams Carbon Electrodes Supervisor Relationship Specialty Start Date End Date Marianela Farris MD, MPH [address] [place] [address] [email or web address] PCP - General Family Medicine 12/05/20 documented as of this encounter Additional Source Comments The information contained in this document represents components of the legal health record. It is not the complete legal health record.[facility]
--- OUTSIDE RECORDS SUMMARY | 2025-05-05 11:54 | XMS_ITS | Encounter Summary ---
Author Organization [facility] Address [address] [place] [address] Phone Care Team Providers Care Assessor Name Role Phone Germania Ruffin DO Primary Care Provider [phone]- [phone] Uyen Vivas MD Primary Care Provider [phone]- [phone] Marianela Farris MD, MPH Primary Care Provid er Encounter Details Date Type Department Care Team (Late st Contact Info) Description 11/02/2020 Procedure Pass [place] Admitting Dept - Virtual Department 30 [place] [address] Social History Tobacco Use Types Packs/Day Years [...] documented as of this encounter Care Teams Assessor Relationship Specialty Start Date End Date Germania Ruffin DO [address] [place] [address] [email or web address] PCP - General Family Medicine 08/10/20 11/24/20 Uyen Vivas MD [address] [place] [address] [email or web address] PCP - General Family Medicine 11/25/20 12/04/20 Marianela Farris MD, MPH [address] [place] [address] [email or web address] PCP - General Family Medicine 12/05/20 documented as of this encounter Additional Source Comments The information contained in this document represents components of the legal health record. It is not the complete legal health record.[facility]
--- OUTSIDE RECORDS SUMMARY | 2025-05-05 11:54 | XMS_ITS | Encounter Summary ---
Author Organization [facility] Address [address] [facility] [address] [place] [address] Phone Care Team Providers Care Production Control Analyst Name Role Phone Marianela Farris MD, MPH Primary Care Provid er Encounter Details Date Type Department Care Team (Late st Contact Info) Description 08/19/2023 Transcribe Orders [facility] SPECIMEN [address] [place] [address] Gwen Lujan, JEMAL 2013 [facility] [address] [place] [address] [email or web address] Social History Tobacco Use Types Packs/Day Years [...] as of this encounter Care Teams Production Control Analyst Relationship Specialty Start Date End Date Marianela Farris MD, MPH [address] [place] [address] [email or web address] PCP - General Family Medicine 12/05/20 documented as of this encounter Additional Source Comments The information contained in this document represents components of the legal health record. It is not the complete legal health record.[facility]
--- OUTSIDE RECORDS SUMMARY | 2025-05-05 11:54 | XMS_ITS | Encounter Summary ---
Author Organization [facility] Address [address] [facility] [address] [place] [address] Phone Care Team Providers Care Fisher Dip Net Name Role Phone Marianela Farris MD, MPH Primary Care Provid er Encounter Details Date Type Department Care Team (Late st Contact Info) Description 03/13/2024 Procedure Pass [facility] [address] [place] [address] Social History Tobacco Use Types Packs/Day Years [...] high school, GED, job training, learning the Malay language, technical skills, or developing parenting skills)? [...] 12:29 PM EDT Andria Cash RN * [place] Suicide Severity Rating Scale (Screener/Recent Self-Report) Question [...] documented as of this encounter Care Teams Fisher Dip Net Relationship Specialty Start Date End Date Marianela Farris MD, MPH [address] [place] [address] [email or web address] PCP - General Family Medicine 12/05/20 documented as of this encounter Additional Source Comments The information contained in this document represents components of the legal health record. It is not the complete legal health record.[facility]
--- OUTSIDE RECORDS SUMMARY | 2025-05-05 11:54 | XMS_ITS | Encounter Summary ---
Author Organization [facility] Address [address] [place] [address] Phone Care Team Providers Care Building Construction Teacher Name Role Phone Marianela Farris MD, MPH Primary Care Provid er Encounter Details Date Type Department Care Team (Late st Contact Info) Description 11/13/2023 Procedure Pass [facility], [address] [address] Social History Tobacco Use Types Packs/Day Years [...] documented as of this encounter Care Teams Building Construction Teacher Relationship Specialty Start Date End Date Marianela Farris MD, MPH [address] [place] [address] [email or web address] PCP - General Family Medicine 12/05/20 documented as of this encounter Additional Source Comments The information contained in this document represents components of the legal health record. It is not the complete legal health record.[facility]
--- OUTSIDE RECORDS SUMMARY | 2025-05-05 11:54 | XMS_ITS | Encounter Summary ---
Author Organization [facility] Address [address] [place] [address] Phone Care Team Providers Care Clerk Checker Name Role Phone Marianela Farris MD, MPH Primary Care Provid er Encounter Details Date Type Department Care Team (Late st Contact Info) Description 11/15/2023 Procedure Pass [facility], [address] [address] Social History Tobacco Use Types Packs/Day Years [...] documented as of this encounter Care Teams Clerk Checker Relationship Specialty Start Date End Date Marianela Farris MD, MPH [address] [place] [address] [email or web address] PCP - General Family Medicine 12/05/20 documented as of this encounter Additional Source Comments The information contained in this document represents components of the legal health record. It is not the complete legal health record.[facility]
--- OUTSIDE RECORDS SUMMARY | 2025-05-05 11:54 | XMS_ITS | Encounter Summary ---
Author Organization [facility] Address [address] [place] [address] Phone Care Team Providers Care Bull Float Finisher Name Role Phone Germania Ruffin DO Primary Care Provider [phone]- [phone] Uyen Vivas MD Primary Care Provider [phone]- [phone] Marianela Farris MD, MPH Primary Care Provid er Encounter Details Date Type Department Care Team (Late st Contact Info) Description 10/24/2020 Procedure Pass [place] Admitting Dept - Virtual Department 30 [place] [address] Social History Tobacco Use Types Packs/Day Years [...] documented as of this encounter Care Teams Bull Float Finisher Relationship Specialty Start Date End Date Germania Ruffin DO [address] [place] [address] [email or web address] PCP - General Family Medicine 08/10/20 11/24/20 Uyen Vivas MD [address] [place] [address] [email or web address] PCP - General Family Medicine 11/25/20 12/04/20 Marianela Farris MD, MPH [address] [place] [address] [email or web address] PCP - General Family Medicine 12/05/20 documented as of this encounter Additional Source Comments The information contained in this document represents components of the legal health record. It is not the complete legal health record.[facility]
--- OUTSIDE RECORDS SUMMARY | 2025-05-05 11:55 | XMS_ITS | Encounter Summary ---
Author Organization [facility] Address [address] [place] [address] Phone Care Team Providers Care Assembling Fabricator Name Role Phone Marianela Farris MD, MPH Primary Care Provid er Encounter Details Date Type Department Care Team (Late st Contact Info) Description 03/19/2023 Ancillary Orders [facility] Orthopedics & Sports Medicine [address] [place] [address] [phone] Celso Salazar MD [address] [place] [address] Orthopedics & Sports Medicine, [facility] [place], [place] [id number] Social History Tobacco Use Types Packs/Day Years [...] documented as of this encounter Care Teams Assembling Fabricator Relationship Specialty Start Date End Date Marianela Farris MD, MPH [address] [place] [address] [email or web address] PCP - General Family Medicine 12/05/20 documented as of this encounter Additional Source Comments The information contained in this document represents components of the legal health record. It is not the complete legal health record.[facility]
--- OUTSIDE RECORDS SUMMARY | 2025-05-05 11:55 | XMS_ITS | Encounter Summary ---
Author Organization [facility] Address [address] [place] [address] [place] [address] Phone Care Team Providers Care Landscape Supervisor Name Role Phone Marianela Farris MD, MPH Primary Care Provid er Encounter Details Date Type Department Care Team (Late st Contact Info) Description 03/19/2023 Ancillary Orders [address] [phone] Celso Salazar MD [address] [place] [address] Orthopedics & Sports Medicine, [place], [place] [phone] [email or web address] Pain in both knees, unspecified chronicity Social [...] documented as of this encounter Care Teams Landscape Supervisor Relationship Specialty Start Date End Date Marianela Farris MD, MPH [address] [place], [place] [phone] [email or web address] PCP - General Family Medicine 12/05/20 documented as of this encounter Additional Source Comments The information contained in this document represents components of the legal health record. It is not the complete legal health record.[facility]
--- OUTSIDE RECORDS SUMMARY | 2025-05-05 11:55 | XMS_ITS | Clinical Summary ---
Author Organization [facility] Address [address] [place] [address] Phone Care Team Providers Care Cmv Driver Name Role Phone Marianela Farris MD, MPH [...] per day (including in other prescribed or lcnf-ots-hcprzyf medications). 0 05/17/20 Active Additional Information Patient taking differently: 650 mgOralEvery 6 hours PRN, May wean to an as needed basis if pain well controlled.Do not take more than 3000mg acetaminophen per day (including in other prescribed or vqzt-mki-rffxlfb medications)., Reported on 03/13/2024 amoxicillin (AMOXIL) 500 [...] the ER. Chest pain 03/13/2024 Atherosclerosis of [place] co ronary artery of [place] heart without angina pectoris 01/05/2024 Assessment & [...] She reports she has a brother and revjze-cu-pvb who have had serious strokes with resulting [...] Pt is wondering about other podiatrists at [facility] of which we don't have any. [...] 1 Alive Brother 2 Alive lives in [place] Brother 3 Alive Father (Age 65[facility] [place] Maternal [...] high school, GED, job training, learning the German language, technical skills, or developing parenting skills)? [...] this topic Medical Devices Implanted Type Area Professional Healthcare Representative Device Identifier Shelf Expiration Date Model / Serial / Lot Knee Baseplate Size 1 Tibial Legion Titanium Alloy Nonporous Right - [id number] Implanted:Qty: 1 on 05/14/2023 by Faheem Cabrera MD at [facility] Right: Knee TRIPATHI [id number] 01/07/2032 [id number] / / [id number] Description:The implant type , laterality (when applicable), size, and expiration date have been visually and verbally confirmed by the Surgeon, Circulating RN and Scrub Personnel. Cement Bone 40g Simplex P Demineralized Matrix Radiopaque Void Filler Full Dose Single Vial Bx/10ea - [id number] Implanted:Qty: 1 on 05/14/2023 by Faheem Cabrera MD at [facility] Right: Knee [employer] [id number] 07/21/2025 6191-1-001 / / [id number] Description:The implant type , laterality (when applicable), size, and expiration date have been visually and verbally confirmed by the Surgeon, Circulating RN and Scrub Personnel. Cement Bone 40g Simplex P Demineralized Matrix Radiopaque Void Filler Full Dose Single Vial Bx/10ea - [id number] Implanted:Qty: 1 on 05/14/2023 by Faheem Cabrera MD at [facility] Right: Knee [employer] [id number] 07/21/2025 6191-1-001 / / [id number] Description:The implant type , laterality (when applicable), size, and expiration date have been visually and verbally confirmed by the Surgeon, Circulating RN and Scrub Personnel. Knee Implant Sz 4 Component Femoral Legion Oxinium Oxidized Zirconium Narrow Cruciate Retaining Rt N - [id number] Implanted:Qty: 1 on 05/14/2023 by Faheem Cabrera MD at [facility] Right: Knee BHUMI [id number] 12/07/2032 [id number] / / [id number] Description:The implant type , laterality (when applicable), size, and expiration date have been visually and verbally confirmed by the Surgeon, Circulating RN and Scrub Personnel. Knee Implant 26mm Patella Resurfacing Karuna Ii - [id number] Implanted:Qty: 1 on 05/14/2023 by Faheem Cabrera MD at [facility] Right: Knee BHUMI [id number] 03/29/2033 [id number] / / [id number] Description:The implant type , laterality (when applicable), size, and expiration date have been visually and verbally confirmed by the Surgeon, Circulating RN and Scrub Personnel. Knee Insert 2 10mm Sz 1 Legion Cr High Flex Xlpe - [id number] Implanted:Qty: 1 on 05/14/2023 by Faheem Cabrera MD at [facility] Right: Knee BHUMI [id number] 09/24/2032 [id number] / / [id number] Description:The implant type , laterality (when applicable), [...] EDT) SODIUM 142 133 - 146 mmol/L [facility] POTASSIUM 4.5 3.3 - 5.1 mmol/L [facility] Comment:Specimen slightly he molyzed, result may be falsely elevated. CHLORIDE 105 96 - 108 mmol/L [facility] CO2 23 21 - 35 mmol/L [facility] BUN 16 6 - 19 mg/dL [facility] CREATININE 0.60 0.5 - 1.5 mg/dL [facility] GLUCOSE 121(H) 70 - 99 mg/dL [facility] ALBUMIN 3.7(L) 3.9 - 4.8 g/dL [facility] TOTAL PROTEIN 6.6 6.5 - 8.0 g/dL [facility] CALCIUM 8.7 8.4 - 10.3 mg/dL [facility] ALKALINE PHOSPHATASE 79 39 - 117 U/L [facility] TOTAL BILIRUBIN 0.7 0.0 - 1.2 mg/dL [facility] AST 43(H) 0 - 37 U/L [facility] ALT 39 0 - 40 U/L [facility] GLOBULIN 2.9 1 - 4.8 g/dL [facility] EGFR 102 >59 mL/min/1.7 3m2 [facility] Comment:Estimated glomerular filtration rate calculated using the CKD-EPI refit equation. ANION GAP 19 10 - 20 mmol/L [facility] Blood 03/14/2024 5:32 AM EDT 03/14/2024 5:57 AM EDT us Allie Ponce NP LAB BLOOD ORDERABLES Fi nal Result [facility] [address] [place] [address] * BI MAMMOGRAM DIAGNOSTIC WITH [...] AM EDT) HCV NON-REACTIV E NON-REACTI VE [facility] Blood 12/14/2022 8:26 AM EDT 12/14/2022 8:31 AM EDT Marianela Farris MD, MPH LAB BLOOD ORDERABLES Final Result Performing Organization Address City/State/[facility] Co de Phone Number [address] [phone] * Pap Smear (06/02/2019 12:00 AM EST) 06/02/2019 06/03/2019 3:3 6 PM EST Narrative SEE NARRATIVE - 06/17/2019 12:06 [place] [address] VISUAL BASIC .NET DEVELOPER Cytology Report Patient Name: LAYLA RIVERA : 1960 (Age: 58) Sex: F Institution: [facility] Location: [facility] Date of Collection: 06/02/2019 Date of Reported: 06/17/2019 12:06 Results to: Germania Ruffin DO FINAL DIAGNOSIS A. VAGINAL, LIQUID BASED SPECIMEN: SPECIMEN ADEQUACY: Satisfactory for evaluation. INTERPRETATION: NEGATIVE FOR INTRAEPITHELIAL LESION OR MALIGNANCY. ADDITIONAL INFORMATION: Atrophic changes present. A manual review was performed for Quality Assurance Tech purposes. This specimen was prescreened using the [employer] System. Electronically Signed Out By: Carlos [...] 52, 56, 58, 59, 66, 68) by Chatter[employer] HR-HPV analysis. Clinical correlation is advised. This HPV test was performed at [facility], [address] [place] [address]. This test has been FDA approved for SurePath cervical cytology specimens. The accuracy and precision of this test for all other specimen sources has been verified in the Cytopathology Laboratory of the [facility] and has not been cleared or [...] 55 Admit Type: Outpatient Gender: Female Room: [place] [address] Referring MD: Anjleica Chauhan Exam Type: Colonoscopy Indications: Screening for [...] bowel preparation was evaluated using the BBPS (Mcdaniels Bowel Preparation Scale) with scores of: Right [...] 2:51 PM Procedure Code(s): --- Professional --- 96099, Colonoscopy, flexible; diagnostic, including collection of specimen(s) by brushing or washing, when performed (separateprocedure) --- Technical --- 46551, Colonoscopy, flexible; diagnostic, including collection of specimen(s) by brushing or washing, when performed (separateprocedure) Diagnosis Code(s): --- Professional --- K64.8, Other hemorrhoids Z12.11, Encounter for screening for malignant neoplasm of colon --- Technical --- K64.8, Other hemorrhoids Z12.11, Encounter for screening for malignant neoplasm of colon CPT copyright 2016 [employer]. All rights reserved. The codes documented in this report are preliminary and upon senior technical architect reviewmay be revised to meet current compliance requirements. [address] [place] [address] Anjelica Chauhan MD GI PROCEDURE ORDERABLES Esdras sylwia Result - Final from Last 3 Months or Most Recently Relevant to Health Maintenance Insurance [employer]MIN[employer]AT[employer]ISTRAT[employer]MINISTRAT[employer] ADMINISTRATORS [facility] [employer]MINISTRAT[employer] [facility] [employer] Advance Directives For more information, please contact: [phone] (9AM - 5PM Constance/[facility], Saturday-Saturday) Documents on File Type Date Recorded Patient Drug Abuse Program Coordinator Expl anation Healthcare Proxy 02/27/2021 1:52 PM * Full Code (Latest Code Status on File) Date Activated Date Inactivated Comments 03/13/2024 6:53 PM Question Answer Comments Code Status Confirmed With: Other (specify below ) * Full Code Date Activated Date Inactivated Comments 02/24/2021 6:04 AM 03/13/2024 6:53 PM Question Answer Comments Code Status Confirmed With: Patient Care Teams Cmv Driver Relationship Specialty Start Date End Date Marianela Farris MD, MPH [address] [place] [address] [email or web address] PCP - General Family Medicine 12/05/20 Additional Source Comments The information contained in this document represents components of the legal health record. It is not the complete legal health record.[facility]
--- OUTSIDE RECORDS SUMMARY | 2025-05-05 11:55 | XMS_ITS | Encounter Summary ---
Author Organization [facility] Address [address] [place] [address] [place] [address] Phone Care Team Providers Care Scrape Gatherer Name Role Phone Marianela Farris MD, MPH Primary Care Provid er Encounter Details Date Type Department Care Team (Late st Contact Info) Description 05/17/2022 Procedure Pass [address] [address] Social History Tobacco Use Types Packs/Day Years [...] documented as of this encounter Care Teams Scrape Gatherer Relationship Specialty Start Date End Date Marianela Farris MD, MPH [address] [place] [address] [email or web address] PCP - General Family Medicine 12/05/20 documented as of this encounter Additional Source Comments The information contained in this document represents components of the legal health record. It is not the complete legal health record.[facility]
--- OUTSIDE RECORDS SUMMARY | 2025-05-05 11:55 | XMS_ITS | Encounter Summary ---
Author Organization [facility] Address [address] [place] [address] Phone Care Team Providers Care Casing Tier Name Role Phone Marianela Farris MD, MPH Primary Care Provid er Encounter Details Date Type Department Care Team (Late st Contact Info) Description 05/17/2022 Transcribe Orders Virtual Department [address] [place] [address] Marianela Farris MD, MPH [address] [facility] [address] [place] [address] [email or web address] Breast screening (Primary Dx) Social History Tobacco [...] documented as of this encounter Care Teams Casing Tier Relationship Specialty Start Date End Date Marianela Farris MD, MPH [address] [place] [address] [email or web address] PCP - General Family Medicine 12/05/20 documented as of this encounter Additional Source Comments The information contained in this document represents components of the legal health record. It is not the complete legal health record.[facility]
--- OUTSIDE RECORDS SUMMARY | 2025-05-05 11:56 | XMS_ITS | Encounter Summary ---
Author Organization [facility] Address [address] [place] [address] Phone Care Team Providers Care Certified Master Safecracker Name Role Phone Germania Ruffin DO Primary Care Provider [phone]- [phone] Germania Ruffin DO Primary Care Provider +1- [phone] Uyen Vivas MD Primary Care Provider [phone] Marianela Farris MD, MPH Primary Care Provid er Encounter Details Date Type Department Care Team (Late st Contact Info) Description 05/16/2020 Procedure Pass [facility] [address] [place] [address] Social History Tobacco Use Types Packs/Day Years [...] documented as of this encounter Care Teams Certified Master Safecracker Relationship Specialty Start Date End Date Germania Ruffin DO [address] [place] [address] [email or web address] PCP - General Family Medicine 03/30/19 08/09/20 Germania Ruffin DO [address] [place] [address] [email or web address] PCP - General Family Medicine 08/10/20 11/24/20 Uyen Vivas MD [address] [place] [address] [email or web address] PCP - General Family Medicine 11/25/20 12/04/20 Marianela Farris MD, MPH [address] [place] [address] [email or web address] PCP - General Family Medicine 12/05/20 documented as of this encounter Additional Source Comments The information contained in this document represents components of the legal health record. It is not the complete legal health record.[facility]
--- OUTSIDE RECORDS SUMMARY | 2025-05-05 11:57 | XMS_ITS | Encounter Summary ---
Author Organization [facility] Address [address] [place] [address] [place] [address] Phone Care Team Providers Care Sheet Pile Driver Operator Name Role Phone Marianela Farris MD, MPH Primary Care Provid er Encounter Details Date Type Department Care Team (Late st Contact Info) Description 11/07/2023 Ancillary Orders [facility] [address] [place] [address] Hollis Hannah MD [address] [place], [place] [id number] [email or web address] Other chronic pain (Primary Dx) Social History [...] (11/13/2023 11:47 AM EDT) Narrative [facility] IMG INTERFACES - 11/13/2023 11:47 AM EDT Fluoroscopy was provided during this procedure. us Hollis Hannah MD IMG [place] EXAMS Final Result [facility] IMG INTERFACES documented in this encounter Visit Diagnoses Diagnosis Other chronic pain- Primary Other chronic pain documented in this encounter Additional Health Concerns Assessment Noted Time PHQ-2 Depression Total Score: 0 06/02/20 19 3:27 PM EST documented as of this encounter Care Teams Sheet Pile Driver Operator Relationship Specialty Start Date End Date Marianela Farris MD, MPH [address] [place] [address] [email or web address] PCP - General Family Medicine 12/05/20 documented as of this encounter Additional Source Comments The information contained in this document represents components of the legal health record. It is not the complete legal health record.[facility]
--- OUTSIDE RECORDS SUMMARY | 2025-05-05 11:57 | XMS_ITS | Encounter Summary ---
Author Organization [facility] Address [address] [place] [address] Phone Care Team Providers Care Stock Hanger Name Role Phone Marianela Farris MD, MPH Primary Care Provid er Encounter Details Date Type Department Care Team (Late st Contact Info) Description 11/12/2023 Procedure Pass [facility], [address] [place] [address] Social History Tobacco Use Types Packs/Day Years [...] documented as of this encounter Care Teams Stock Hanger Relationship Specialty Start Date End Date Marianela Farris MD, MPH [address] [place] [address] [email or web address] PCP - General Family Medicine 12/05/20 documented as of this encounter Additional Source Comments The information contained in this document represents components of the legal health record. It is not the complete legal health record.[facility]
--- OUTSIDE RECORDS SUMMARY | 2025-05-05 11:57 | XMS_ITS | Encounter Summary ---
Author Organization [facility] Address [address] [place] [address] [place] [address] Phone Care Team Providers Care Vaccine Specialist Name Role Phone Germania Ruffin DO Primary Care Provider [phone]- [phone] Germania Ruffin DO Primary Care Provider [phone]- [phone] Uyen Vivas MD Primary Care Provider Marianela Farris MD, MPH Primary Care Provid er Encounter Details Date Type Department Care Team (Late st Contact Info) Description 01/26/2020 Ancillary Orders [facility] Podiatry [address] [place] [address] Areli Becerra DPM 10 [facility] 7 [place] [address] [email or web address] Chronic pain in left foot Social History [...] documented as of this encounter Care Teams Vaccine Specialist Relationship Specialty Start Date End Date Germania Ruffin DO [address] [place] [address] [email or web address] PCP - General Family Medicine 03/30/19 08/09/20 Germania Ruffin DO [address] [place] [address] [email or web address] PCP - General Family Medicine 08/10/20 11/24/20 Uyen Vivas MD [address] [address] PCP - General Family Medicine 11/25/20 12/04/20 Marianela Farris MD, MPH [address] [address] [email or web address] PCP - General Family Medicine 12/05/20 documented as of this encounter Additional Source Comments The information contained in this document represents components of the legal health record. It is not the complete legal health record.[facility]
--- OUTSIDE RECORDS SUMMARY | 2025-05-05 11:57 | XMS_ITS | Patient Health Record ---
Author Organization [facility] Address [address] [place] [address] Care Team Providers Care State Attorney Name Role Phone Germania Ruffin Primary Care Provider Kelvin Sullivan Unavailable [phone] Allergies Allergen (clinical drug ingredient) Drug/Non Drug [...] Insured Coverage Start Date Coverage End Date [facility] [address] [place] [id number] Brittani Mello Self - patient is the insured Medical (General) History Medical History History ICD Code asthma Back,Hip,and Knee pain Measles Mumps Chicken pox osteoarthritis Varicose veins Bunion Plantar fasciitis Surgical History Surgery Date(Month/Year) section 1993, 1996 appendectomy 2006
--- OUTSIDE RECORDS SUMMARY | 2025-05-05 11:57 | XMS_ITS | Encounter Summary ---
Author Organization [facility] Address [address] [place] [address] Phone Care Team Providers Care Air Pollution Analyst Name Role Phone Germania Ruffin DO Primary Care Provider +1- [phone] Germania Ruffin DO Primary Care Provider +1- [phone] Uyen Vivas MD Primary Care Provider [phone]- [phone] Marianela Farris MD, MPH Primary Care Provid er Encounter Details Date Type Department Care Team (Late st Contact Info) Description 04/15/2019 Ancillary Orders [facility] Imaging [address] [place] [address] System, Provider Not In, [place] [address] Social History Tobacco Use Types Packs/Day Years [...] documented as of this encounter Care Teams Air Pollution Analyst Relationship Specialty Start Date End Date Germania Ruffin DO [address] [place] [address] [email or web address] PCP - General Family Medicine 03/30/19 08/09/20 Germania Ruffin DO [address] [place] [address] [email or web address] PCP - General Family Medicine 08/10/20 11/24/20 Uyen Vivas MD [address] [place], [place] [address] [email or web address] PCP - General Family Medicine 11/25/20 12/04/20 Marianela Farris MD, MPH [address] [place] [address] [email or web address] PCP - General Family Medicine 12/05/20 documented as of this encounter Additional Source Comments The information contained in this document represents components of the legal health record. It is not the complete legal health record.[facility]
--- OUTSIDE RECORDS SUMMARY | 2025-05-05 11:57 | XMS_ITS | Encounter Summary ---
Author Organization [facility] Address [address] [place] [address] Phone Care Team Providers Care Ambulance Assistant Name Role Phone Germania Ruffin DO Primary Care Provider +1- [phone] Germania Ruffin DO Primary Care Provider +1- [phone] Uyen Vivas MD Primary Care Provider [phone] Marianlea Farris MD, MPH Primary Care Provid er Encounter Details Date Type Department Care Team (Late st Contact Info) Description 05/16/2020 Ancillary Orders [facility] Family Medicine [address] [place] [address] Germania Ruffin, DO [address] [place] [address] Breast screening Social History Tobacco Use Types [...] documented as of this encounter Care Teams Ambulance Assistant Relationship Specialty Start Date End Date Germania Ruffin DO [address] [place] [address] [email or web address] PCP - General Family Medicine 03/30/19 08/09/20 Germania Ruffin DO [address] [place] [address] [email or web address] PCP - General Family Medicine 08/10/20 11/24/20 Uyen Vivas MD [address] [place] [address] PCP - General Family Medicine 11/25/20 12/04/20 Marianela Farris MD, MPH [address] [place] [address] [email or web address] PCP - General Family Medicine 12/05/20 documented as of this encounter Additional Source Comments The information contained in this document represents components of the legal health record. It is not the complete legal health record.[facility]
--- OUTSIDE RECORDS SUMMARY | 2025-05-05 11:58 | XMS_ITS | Encounter Summary ---
Author Organization [facility] Address [address] [place] [address] Phone Care Team Providers Care Digital Camera Technician Name Role Phone Anjelica Chauhan MD Primary Care Provider Germania Ruffin DO Primary Care Provider +1- [phone] Germania Ruffin DO Primary Care Provider +1- [phone] Uyen Vivas MD Primary Care Provider Marianela Farris MD, MPH Primary Care Provid er Encounter Details Date Type Department Care Team (Late st Contact Info) Description 05/19/2018 Procedure Pass [facility]oscopy Admitting Dept Virtual Department [address] [place] [address] Social History Tobacco Use Types Packs/Day Years [...] documented as of this encounter Care Teams Digital Camera Technician Relationship Specialty Start Date End Date Anjelica Chauhan MD [address] [place] [address] [email or web address] PCP - General Family Medicine 05/15/18 9 Germania Ruffin DO [address] [place] [address] [email or web address] PCP - General Family Medicine 03/30/19 08/09/20 Germania Ruffin DO [address] [place] [address] [email or web address] PCP - General Family Medicine 08/10/20 11/24/20 Uyen Vivas MD [address] [place] [address] [email or web address] PCP - General Family Medicine 11/25/20 12/04/20 Marianela Farris MD, MPH [address] [place] [address] [email or web address] PCP - General Family Medicine 12/05/20 documented as of this encounter Additional Source Comments The information contained in this document represents components of the legal health record. It is not the complete legal health record.[facility]
--- OUTSIDE RECORDS SUMMARY | 2025-05-05 11:58 | XMS_ITS | Encounter Summary ---
Author Organization [facility] Address [address] [place] [address] Phone Care Team Providers Care Copy Center Associate Name Role Phone Marianela Farris MD, MPH Primary Care Provid er Encounter Details Date Type Department Care Team (Late st Contact Info) Description 09/24/2023 Procedure Pass Non-Invasive Cardiology [address] [place] [address] Social History Tobacco Use Types Packs/Day Years [...] as of this encounter Care Teams Copy Center Associate Relationship Specialty Start Date End Date Marianela Farris MD, MPH [address] [place] [address] [email or web address] PCP - General Family Medicine 12/05/20 documented as of this encounter Additional Source Comments The information contained in this document represents components of the legal health record. It is not the complete legal health record.[facility]
--- OUTSIDE RECORDS SUMMARY | 2025-05-05 11:58 | XMS_ITS | Encounter Summary ---
Author Organization [facility] Address [address] [place] [address] [place] [address] Phone Care Team Providers Care Green End Man Name Role Phone Marianela Farris MD, MPH Primary Care Provid er Encounter Details Date Type Department Care Team (Late st Contact Info) Description 04/18/2021 Procedure Pass [address] [address] Social History Tobacco Use Types Packs/Day Years [...] documented as of this encounter Care Teams Green End Man Relationship Specialty Start Date End Date Marianela Farris MD, MPH [address] [place] [address] [email or web address] PCP - General Family Medicine 12/05/20 documented as of this encounter Additional Source Comments The information contained in this document represents components of the legal health record. It is not the complete legal health record.[facility]
--- OUTSIDE RECORDS SUMMARY | 2025-05-05 11:58 | XMS_ITS | Encounter Summary ---
Author Organization [facility] Address [address] [place] [address] Phone Care Team Providers Care Roaster Helper Name Role Phone Germania Ruffin DO Primary Care Provider +1- [phone] Germania Ruffin DO Primary Care Provider +1- [phone] Uyen Vivas MD Primary Care Provider +1- [phone] Marianela Farris MD, MPH Primary Care Provid er Encounter Details Date Type Department Care Team (Late st Contact Info) Description 04/15/2019 Ancillary Orders [facility],Outside Imaging [address] [place] [address] System, Provider Not In, [place] [address] Social History Tobacco Use Types Packs/Day Years [...] documented as of this encounter Care Teams Roaster Helper Relationship Specialty Start Date End Date Germania Ruffin DO [address] [place] [address] [email or web address] PCP - General Family Medicine 03/30/19 08/09/20 Germania Ruffin DO [address] [place] [address] [email or web address] PCP - General Family Medicine 08/10/20 11/24/20 Uyen Vivas MD [address] [place], [place] [id number] [email or web address] PCP - General Family Medicine 11/25/20 12/04/20 Marianela Farris MD, MPH [address] [place] [address] [email or web address] PCP - General Family Medicine 12/05/20 documented as of this encounter Additional Source Comments The information contained in this document represents components of the legal health record. It is not the complete legal health record.[facility]
--- OUTSIDE RECORDS SUMMARY | 2025-05-05 11:58 | XMS_ITS | Encounter Summary ---
Author Organization [facility] Address [address] [place] [address] [place] [address] Phone Care Team Providers Care Director Search Name Role Phone Marianela Farris MD, MPH Primary Care Provid er Encounter Details Date Type Department Care Team (Late st Contact Info) Description 09/18/2023 Procedure Pass [facility] PERIOPERATIVE DEPT [address] [place] [address] Social History Tobacco Use Types [...] documented as of this encounter Care Teams Director Search Relationship Specialty Start Date End Date Marianela Farris MD, MPH [address] [place] [address] [email or web address] PCP - General Family Medicine 12/05/20 documented as of this encounter Additional Source Comments The information contained in this document represents components of the legal health record. It is not the complete legal health record.[facility]
--- OUTSIDE RECORDS SUMMARY | 2025-05-05 11:58 | XMS_ITS | Encounter Summary ---
Author Organization [facility] Address [address] [place] [address] Phone Care Team Providers Care Aggregate Conveyor Operator Name Role Phone Marianela Farris MD, MPH Primary Care Provid er Encounter Details Date Type Department Care Team (Late st Contact Info) Description 09/05/2021 Procedure Pass [facility], [address] [address] Social History Tobacco Use Types Packs/Day Years [...] documented as of this encounter Care Teams Aggregate Conveyor Operator Relationship Specialty Start Date End Date Marianela Farris MD, MPH [address] [place] [address] [email or web address] PCP - General Family Medicine 12/05/20 documented as of this encounter Additional Source Comments The information contained in this document represents components of the legal health record. It is not the complete legal health record.[facility]
--- OUTSIDE RECORDS SUMMARY | 2025-05-05 11:58 | XMS_ITS | Encounter Summary ---
Author Organization [facility] Address [address] [place] [address] Phone Care Team Providers Care Superintendent Operations Division Name Role Phone Marianela Farris MD, MPH Primary Care Provid er Encounter Details Date Type Department Care Team (Late st Contact Info) Description 09/11/2023 Procedure Pass [facility], [address] [address] Social History Tobacco Use Types Packs/Day Years [...] documented as of this encounter Care Teams Superintendent Operations Division Relationship Specialty Start Date End Date Marianela Farris MD, MPH [address] [place] [address] [email or web address] PCP - General Family Medicine 12/05/20 documented as of this encounter Additional Source Comments The information contained in this document represents components of the legal health record. It is not the complete legal health record.[facility]
--- OUTSIDE RECORDS SUMMARY | 2025-05-05 11:58 | XMS_ITS | Encounter Summary ---
Author Organization [facility] Address [address] [place] [address] Phone Care Team Providers Care Powderer Name Role Phone Germania Ruffin DO Primary Care Provider +1- [phone] Germania Ruffin DO Primary Care Provider +1- [phone] Uyen Vivas MD Primary Care Provider +1- [phone] Marianela Farris MD, MPH Primary Care Provid er Encounter Details Date Type Department Care Team (Late st Contact Info) Description 04/15/2019 Ancillary Orders [facility],Outside Imaging [address] [place] [address] System, Provider Not In, [place] [address] Social History Tobacco Use Types Packs/Day Years [...] documented as of this encounter Care Teams Powderer Relationship Specialty Start Date End Date Germania Ruffin DO [address] [place] [address] [email or web address] PCP - General Family Medicine 03/30/19 08/09/20 Germania Ruffin DO [address] [place] [address] [email or web address] PCP - General Family Medicine 08/10/20 11/24/20 Uyen Vivas MD [address] [place], [place] [phone] PCP - General Family Medicine 11/25/20 12/04/20 Marianela Farris MD, MPH [address] [place] [address] [email or web address] PCP - General Family Medicine 12/05/20 documented as of this encounter Additional Source Comments The information contained in this document represents components of the legal health record. It is not the complete legal health record.[facility]
== END 2025-05-05 11:12 | disposition home or self-care (01) ==
LOC: HO.HOS 10:08
PROVIDERS: PCP Family Medicine; Visit Provider Physician Assistant
DX: Z96.652 Presence of left artificial knee joint (principal)
CPT/HCPCS: 99024

== ENCOUNTER → 2025-05-05 10:13 | Outpatient (BNV) | payer OTHER, SELFPAY | PROVIDERS: Visit Provider Radiology Diagnostic Ultrasound | DX: M25.562 Pain in left knee (principal) | CPT/HCPCS: 73562 ==

== ENCOUNTER 2025-05-26 13:51 | Outpatient (AMB) | payer OTHER, SELFPAY ==
--- NOTE | 2025-05-26 13:53 | MHC.OFFVIS ---
Vital Signs 05/26/25 14:00 Height 5 ft 3 in Weight 180 lb BMI 31.9 Intake Visit Reasons: 6WKPO: L TKA w/ 04/19/25 Intake Note: Brittani is a 64 year old female who presents with complaints of mild to moderate discomfort in her left knee after undergoing left total knee replacement surgery on 04/19/2025. She continues with her physical therapy exercises. The patient does take Tylenol and oxycodone as needed for discomfort. She denies any fevers or chills. Allergies latex Allergy (Verified 05/26/25 14:00) hives, swelling Medication List - Last Reconciled 05/26/25 by Miguel Dickson MD acetaminophen 650 mg (2 x 325 mg) PO Q6H PRN 30 days amoxicillin 2,000 mg (4 x 500 mg) PO ONCE 1 day aspirin 325 mg PO Q12H 42 days aspirin 81 mg PO DAILY atorvastatin 80 mg PO DAILY dicyclomine 10 mg PO QIDACHS 30 days docusate sodium 100 mg PO BID 30 days gabapentin 100 mg PO BEDTIME 7 days losartan 25 mg PO DAILY metoprolol succinate ER (Toprol XL) 25 mg PO DAILY oxycodone 5 mg PO Q8H PRN 7 days polyethylene glycol 3350 (Miralax) 17 grams PO DAILY PRN semaglutide (Ozempic) 1 mg subcut QWEEK sennosides (Senna Lax) 8.6 mg PO BEDTIME 30 days therapeutic multivitamin 1 tab PO DAILY walker (Ultra-Light Rollator misc) As directed walker Folding front wheeled walker [facility] Medical History (Updated 05/01/25 @ 00:01 by Bertha Henao) Back pain Numbness Myocardial infarction HTN (hypertension) Asthma Surgical History (Updated 05/26/25 @ 14:02 by LINDSEY Mccoy) History of total left knee replacement (~04/19/25) H/O colonoscopy History of appendectomy History of 2 sections History of total right knee replacement (~05/14/23) History of heart artery stent Family History Brother Heart attack Sister Stented coronary artery Social History Household Members: Spouse Housing: House Are you a primary care transitions manager to a significant other at home: No Do you presently have visiting nurse or other home services: No Alcohol intake: never Patient Tobacco Use Status: Never used Tobacco e-Cigarette/Vaping Use: Never Used Second Hand Smoke Exposure: No service: No Current occupational status: unemployed Cognitive needs: No Hearing needs: No Vision needs: No Physical Exam Vital Signs: BMI result Body Mass Index 31.9 Extrem Other: Left knee examination shows that the surgical incision is well healed, no erythema, full active extension and flexion to 115 degrees, her patella tracks well Assessment & Plan Assessment & Plan (1) Left knee pain: Code(s): M25.562 - Pain in left knee Category: Medical Plan Ms. Mello continues to do well after undergoing left total knee replacement surgery on 04/19/2025. She will continue with her physical therapy exercises. I did refill her prescriptions for Tylenol and Senokot. She will contact me prior to her follow-up appointment in 6-8 weeks should any questions or concerns arise. Feel free to call me at any time should questions regarding her orthopedic management arise. Medications: Refilled sennosides (Senna Lax) 8.6 mg PO BEDTIME 30 tabs 0RF 30 days acetaminophen 650 mg (2 x 325 mg) PO Q6H PRN 240 tabs 0RF Pain, Mild 1-3,Fever,Headache 30 days Coding Level of Care Code Global (54678) Diagnoses Left knee pain M25.562
[2025-05-26 14:00] VITALS: BMI 31.9
--- OUTSIDE RECORDS SUMMARY | 2025-05-26 17:00 | XMS_ITS | Encounter Summary ---
Author Organization [facility] Address [address] [place] [address] Phone Care Team Providers Care Sexer Name Role Phone Germania Ruffin DO Primary Care Provider +1- [phone] Uyen Vivas MD Primary Care Provider +1- [phone] Marianela Farris MD, MPH Primary Care Provid er Encounter Details Date Type Department Care Team (Late st Contact Info) Description 10/24/2020 Procedure Pass [place] Admitting Dept - Virtual Department [address] [place] [address] Social History Tobacco Use Types Packs/Day Years [...] documented as of this encounter Care Teams Sexer Relationship Specialty Start Date End Date Germania Ruffin DO [address] [place] [address] [email or web address] PCP - General Family Medicine 08/10/20 11/24/20 Uyen Vivas MD [address] [place] [address] [email or web address] PCP - General Family Medicine 11/25/20 12/04/20 Marianela Farris MD, MPH [address] [place] [address] [email or web address] PCP - General Family Medicine 12/05/20 documented as of this encounter Additional Source Comments The information contained in this document represents components of the legal health record. It is not the complete legal health record.[facility]
--- OUTSIDE RECORDS SUMMARY | 2025-05-26 17:00 | XMS_ITS | Encounter Summary ---
Author Organization [facility] Address [address] [place] [address] [place] [address] Phone Care Team Providers Care Tank House Operator Name Role Phone Marianela Farris MD, MPH Primary Care Provid er Encounter Details Date Type Department Care Team (Late st Contact Info) Description 05/14/2023 Procedure Pass [facility] PERIOPERATIVE DEPT 2013 [place] [address] Social History Tobacco Use Types [...] 9:23 PM EDT Ramonita Aj RN * [place] Suicide Severity Rating Scale (Screener/Recent Self-Report) Question [...] documented as of this encounter Care Teams Tank House Operator Relationship Specialty Start Date End Date Marianela Farris MD, MPH [address] [place] [address] [email or web address] PCP - General Family Medicine 12/05/20 documented as of this encounter Additional Source Comments The information contained in this document represents components of the legal health record. It is not the complete legal health record.[facility]
--- OUTSIDE RECORDS SUMMARY | 2025-05-26 17:00 | XMS_ITS | Encounter Summary ---
Author Organization [facility] Address [address] [place] [address] Phone Care Team Providers Care Patient Care Nursing Assistant Name Role Phone Germania Ruffin DO Primary Care Provider +1- [phone] Uyen Vivas MD Primary Care Provider +1- [phone] Marianela Farris MD, MPH Primary Care Provid er Encounter Details Date Type Department Care Team (Late st Contact Info) Description 11/02/2020 Procedure Pass [place] Admitting Dept - Virtual Department [address] [place] [address] Social History Tobacco Use Types Packs/Day Years [...] documented as of this encounter Care Teams Patient Care Nursing Assistant Relationship Specialty Start Date End Date Germania Ruffin DO [address] [place] [address] [email or web address] PCP - General Family Medicine 08/10/20 11/24/20 Uyen Vivas MD [address] [place] [address] [email or web address] PCP - General Family Medicine 11/25/20 12/04/20 Marianela Farris MD, MPH [address] [place] [address] [email or web address] PCP - General Family Medicine 12/05/20 documented as of this encounter Additional Source Comments The information contained in this document represents components of the legal health record. It is not the complete legal health record.[facility]
--- OUTSIDE RECORDS SUMMARY | 2025-05-26 17:01 | XMS_ITS | Encounter Summary ---
Author Organization [facility] Address [address] [facility] [place] [address] Phone Care Team Providers Care Cord Splicer Name Role Phone Marianela Farris MD, MPH Primary Care Provid er Encounter Details Date Type Department Care Team (Late st Contact Info) Description 03/21/2023 Telephone [facility] [address] [facility] [address] [place] [address] Sonam Prater, HOT OILER [address] [address] [email or web address] Social History Tobacco Use Types Packs/Day Years [...] documented as of this encounter Care Teams Cord Splicer Relationship Specialty Start Date End Date Marianela Farris MD, MPH [address] [place] [address] [email or web address] PCP - General Family Medicine 12/05/20 documented as of this encounter Additional Source Comments The information contained in this document represents components of the legal health record. It is not the complete legal health record.[facility]
--- OUTSIDE RECORDS SUMMARY | 2025-05-26 17:01 | XMS_ITS | Encounter Summary ---
Author Organization [facility] Address [address] [place] [address] [place] [address] Phone Care Team Providers Care Circulation Analyst Name Role Phone Marianela Farris MD, MPH Primary Care Provid er Encounter Details Date Type Department Care Team (Late st Contact Info) Description 02/24/2021 Procedure Pass [facility] [address] [place] [address] Social History Tobacco Use Types Packs/Day Years [...] 2:21 PM EDT Sexual Orientation Straight 11/04/2019 9 :13 AM EDT documented as of this encounter Functional Status * Calculated C-SSRS Risk Score (Lifetime/Recent) Answer Date of Assessment Author No Risk Indicated 02/24/2021 2:22 AM EDT Lashaun Roche RN * [place] Suicide Severity Rating Scale (Screener/Recent Self-Report) Question [...] documented as of this encounter Care Teams Circulation Analyst Relationship Specialty Start Date End Date Marianela Farris MD, MPH [address] [place] [address] [email or web address] PCP - General Family Medicine 12/05/20 documented as of this encounter Additional Source Comments The information contained in this document represents components of the legal health record. It is not the complete legal health record.[facility]
--- OUTSIDE RECORDS SUMMARY | 2025-05-26 17:01 | XMS_ITS | Encounter Summary ---
Author Organization [facility] Address [address] [facility] [address] [place] [address] Phone Care Team Providers Care Valve Repairer Name Role Phone Marianela Farris MD, MPH Primary Care Provid er Encounter Details Date Type Department Care Team (Late st Contact Info) Description 08/19/2023 Transcribe Orders [facility] Main [address] [place], [place] [id number] Gwen Lujan, JEMAL 2013 [facility] [address] [place] [address] [email or web address] Social History Tobacco [...] documented as of this encounter Care Teams Valve Repairer Relationship Specialty Start Date End Date Marianela Farris MD, MPH [address] [place] [address] [email or web address] PCP - General Family Medicine 12/05/20 documented as of this encounter Additional Source Comments The information contained in this document represents components of the legal health record. It is not the complete legal health record.[facility]
--- OUTSIDE RECORDS SUMMARY | 2025-05-26 17:01 | XMS_ITS | Encounter Summary ---
Author Organization [facility] Address [address] [place] [address] Phone Care Team Providers Care Pin Inserter Regulator Name Role Phone Marianela Farris MD, MPH Primary Care Provid er Encounter Details Date Type Department Care Team (Latest Contact Info) Description 04/18/2022 Ancillary Orders [facility] [address] [place] [address] Allen Greenberg MD [address] [place] [address] [email or web address] Primary osteoarthritis of right knee Social History [...] documented as of this encounter Care Teams Pin Inserter Regulator Relationship Specialty Start Date End Date Marianela Farris MD, MPH [address] [place] [address] [email or web address] PCP - General Family Medicine 12/05/20 documented as of this encounter Additional Source Comments The information contained in this document represents components of the legal health record. It is not the complete legal health record.[facility]
--- OUTSIDE RECORDS SUMMARY | 2025-05-26 17:01 | XMS_ITS | Encounter Summary ---
Author Organization [facility] Address [address] [place] [address] Phone Care Team Providers Care Programming Director Name Role Phone Marianela Farris MD, MPH Primary Care Provid er Encounter Details Date Type Department Care Team (Late st Contact Info) Description 04/18/2022 Ancillary Orders [facility] Orthopedics & Sports Medicine [address] [place] [address] Allen Greenberg MD [address] [place] [address] [email or web address] Social History Tobacco Use Types Packs/Day Years [...] documented as of this encounter Care Teams Programming Director Relationship Specialty Start Date End Date Marianela Farris MD, MPH [address] [place] [address] [email or web address] PCP - General Family Medicine 12/05/20 documented as of this encounter Additional Source Comments The information contained in this document represents components of the legal health record. It is not the complete legal health record.[facility]
--- OUTSIDE RECORDS SUMMARY | 2025-05-26 17:01 | XMS_ITS | Encounter Summary ---
Author Organization [facility] Address [address] [place] [address] [place] [address] Phone Care Team Providers Care Engraver Seals Name Role Phone Marianela Farris MD, MPH Primary Care Provid er Encounter Details Date Type Department Care Team (Late st Contact Info) Description 04/11/2023 Transcribe Orders [facility] Lab Main [address] [place] [address] Sonam Prater, WHARFMASTER [address] [address] [email or web address] Social History Tobacco Use Types Packs/Day Years [...] documented as of this encounter Care Teams Engraver Seals Relationship Specialty Start Date End Date Marianela Farris MD, MPH [address] [place] [address] [email or web address] PCP - General Family Medicine 12/05/20 documented as of this encounter Additional Source Comments The information contained in this document represents components of the legal health record. It is not the complete legal health record.[facility]
--- OUTSIDE RECORDS SUMMARY | 2025-05-26 17:01 | XMS_ITS | Encounter Summary ---
Author Organization [facility] Address [address] [facility] [address] [place] [address] Phone Care Team Providers Care It Systems Analyst Consultant Name Role Phone Marianela Farris MD, MPH Primary Care Provid er Encounter Details Date Type Department Care Team (Late st Contact Info) Description 03/13/2024 Procedure Pass [facility] Echo Lab [address] [place] [address] Social History Tobacco Use Types Packs/Day Years [...] high school, GED, job training, learning the Ukrainian language, technical skills, or developing parenting skills)? [...] 12:29 PM EDT Andria Cash RN * Wann Suicide Severity Rating Scale (Screener/Recent Self-Report) Question [...] documented as of this encounter Care Teams It Systems Analyst Consultant Relationship Specialty Start Date End Date Marianela Farris MD, MPH [address] [place] [address] [email or web address] PCP - General Family Medicine 12/05/20 documented as of this encounter Additional Source Comments The information contained in this document represents components of the legal health record. It is not the complete legal health record.[facility]
--- OUTSIDE RECORDS SUMMARY | 2025-05-26 17:01 | XMS_ITS | Encounter Summary ---
Author Organization [facility] Address [address] [place] [address] Phone Care Team Providers Care Geneticist Name Role Phone Marianela Farris MD, MPH Primary Care Provid er Encounter Details Date Type Department Care Team (Late st Contact Info) Description 11/15/2023 Procedure Pass [facility], [address] [address] Social History Tobacco Use Types Packs/Day Years [...] documented as of this encounter Care Teams Geneticist Relationship Specialty Start Date End Date Marianela Farris MD, MPH [address] [place] [address] [email or web address] PCP - General Family Medicine 12/05/20 documented as of this encounter Additional Source Comments The information contained in this document represents components of the legal health record. It is not the complete legal health record.[facility]
--- OUTSIDE RECORDS SUMMARY | 2025-05-26 17:01 | XMS_ITS | Encounter Summary ---
Author Organization [facility] Address [address] [place] [address] Phone Care Team Providers Care Chronic Specialist Name Role Phone Marianela Farris MD, MPH Primary Care Provid er Encounter Details Date Type Department Care Team (Late st Contact Info) Description 11/13/2023 Procedure Pass [facility], [address] [address] Social History Tobacco Use Types Packs/Day Years [...] documented as of this encounter Care Teams Chronic Specialist Relationship Specialty Start Date End Date Marianela Farris MD, MPH [address] [place] [address] [email or web address] PCP - General Family Medicine 12/05/20 documented as of this encounter Additional Source Comments The information contained in this document represents components of the legal health record. It is not the complete legal health record.[facility]
--- OUTSIDE RECORDS SUMMARY | 2025-05-26 17:02 | XMS_ITS | Encounter Summary ---
Author Organization [facility] Address [address] [place] [address] Phone Care Team Providers Care Ceramic Research Engineer Name Role Phone Anjelica Chauhan MD Primary Care Provider Germania Ruffin DO Primary Care Provider [phone]- [phone] Germania Ruffin DO Primary Care Provider [phone]- [phone] Uyen Vivas MD Primary Care Provider [phone] Marianela Farris MD, MPH Primary Care Provid er Encounter Details Date Type Department Care Team (Late st Contact Info) Description 05/19/2018 Procedure Pass [facility] Endoscopy Admitting Dept Virtual Department [address] [place] [address] Social History Tobacco Use Types Packs/Day Years [...] documented as of this encounter Care Teams Ceramic Research Engineer Relationship Specialty Start Date End Date Anjelica Chauhan MD [address] [place] [address] [email or web address] PCP - General Family Medicine 05/15/18 9 Germania Ruffin DO [address] [place] [address] [email or web address] PCP - General Family Medicine 03/30/19 08/09/20 Germania Ruffin DO [address] [place] [address] [email or web address] PCP - General Family Medicine 08/10/20 11/24/20 Uyen Vivas MD [address] [place] [address] [email or web address] PCP - General Family Medicine 11/25/20 12/04/20 Marianela Farris MD, MPH [address] [place] [address] [email or web address] PCP - General Family Medicine 12/05/20 documented as of this encounter Additional Source Comments The information contained in this document represents components of the legal health record. It is not the complete legal health record.[facility]
--- OUTSIDE RECORDS SUMMARY | 2025-05-26 17:02 | XMS_ITS | Encounter Summary ---
Author Organization [facility] Address [address] [place] [address] Phone Care Team Providers Care Hydrological Technical Officer Name Role Phone Germania Ruffin DO Primary Care Provider [phone]- [phone] Germania Ruffin DO Primary Care Provider [phone]- [phone] Uyen Vivas MD Primary Care Provider [phone] Marianela Farris MD, MPH Primary Care Provid er Encounter Details Date Type Department Care Team (Late st Contact Info) Description 04/15/2019 Ancillary Orders [facility],Outside Imaging [address] [place] [address] System, Provider Not In, [place] [address] Social History Tobacco Use Types Packs/Day Years [...] documented as of this encounter Care Teams Hydrological Technical Officer Relationship Specialty Start Date End Date Germania Ruffin DO [address] [place] [address] [email or web address] PCP - General Family Medicine 03/30/19 08/09/20 Germania Ruffin DO [address] [place] [address] [email or web address] PCP - General Family Medicine 08/10/20 11/24/20 Uyen Vivas MD [address] [place], [place] [phone] [email or web address] PCP - General Family Medicine 11/25/20 12/04/20 Marinaela Farris MD, MPH [address] [place] [address] [email or web address] PCP - General Family Medicine 12/05/20 documented as of this encounter Additional Source Comments The information contained in this document represents components of the legal health record. It is not the complete legal health record.[facility]
--- OUTSIDE RECORDS SUMMARY | 2025-05-26 17:02 | XMS_ITS | Encounter Summary ---
Author Organization [facility] Address [address] [place] [address] [place] [address] Phone Care Team Providers Care Sand Drier Name Role Phone Marianela Farris MD, MPH Primary Care Provid er Encounter Details Date Type Department Care Team (Late st Contact Info) Description 03/19/2023 Ancillary Orders [address] [phone] Celso Salazar MD [address] [place] [address] Orthopedics & Sports Medicine, [place], [place] [phone] [email or web address] Pain in both knees, unspecified chronicity Social [...] documented as of this encounter Care Teams Sand Drier Relationship Specialty Start Date End Date Marianela Farris MD, MPH [address] [place], [place] [phone] [email or web address] PCP - General Family Medicine 12/05/20 documented as of this encounter Additional Source Comments The information contained in this document represents components of the legal health record. It is not the complete legal health record.[facility]
--- OUTSIDE RECORDS SUMMARY | 2025-05-26 17:02 | XMS_ITS | Encounter Summary ---
Author Organization [facility] Address [address] [place] [address] [place] [address] Phone Care Team Providers Care Senior Interactive Producer Name Role Phone Marianela Farris MD, MPH Primary Care Provid er Encounter Details Date Type Department Care Team (Late st Contact Info) Description 11/07/2023 Ancillary Orders [facility] [address] [place] [address] Hollis Hannah MD [address] [place], [place] [phone] [email or web address] Other chronic pain (Primary Dx) Social History [...] Pain Management (11/13/2023 11:47 AM EDT) Narrative [facility] IMG INTERFACES - 11/13/2023 11:47 AM EDT Fluoroscopy was provided during this procedure. us Hollis Hannah MD IMG FL EXAMS Final Result [facility] IMG INTERFACES documented in this encounter Visit Diagnoses Diagnosis Other chronic pain- Primary Other chronic pain documented in this encounter Additional Health Concerns Assessment Noted Time PHQ-2 Depression Total Score: 0 06/02/20 19 3:27 PM EST documented as of this encounter Care Teams Senior Interactive Producer Relationship Specialty Start Date End Date Marianela Farris MD, MPH [address] [place] [address] [email or web address] PCP - General Family Medicine 12/05/20 documented as of this encounter Additional Source Comments The information contained in this document represents components of the legal health record. It is not the complete legal health record.[facility]
--- OUTSIDE RECORDS SUMMARY | 2025-05-26 17:02 | XMS_ITS | Encounter Summary ---
Author Organization [facility] Address [address] [place] [address] [place] [address] Phone Care Team Providers Care Mainspring Former Brace End Name Role Phone Marianela Farris MD, MPH Primary Care Provid er Encounter Details Date Type Department Care Team (Late st Contact Info) Description 03/19/2023 Ancillary Orders [facility] Orthopedics & Sports Medicine [address] [place] [address] [phone] Celso Salazar MD [address] [place] [address] Orthopedics & Sports Medicine, [facility] [place], [place] [phone] Social History Tobacco Use Types Packs/Day Years [...] documented as of this encounter Care Teams Mainspring Former Brace End Relationship Specialty Start Date End Date Marianela Farris MD, MPH [address] [place] [address] [email or web address] PCP - General Family Medicine 12/05/20 documented as of this encounter Additional Source Comments The information contained in this document represents components of the legal health record. It is not the complete legal health record.[facility]
--- OUTSIDE RECORDS SUMMARY | 2025-05-26 17:02 | XMS_ITS | Clinical Summary ---
Author Organization [facility] Address [address] [facility] [address] [place] [address] Phone Care Team Providers Care Road Marker Name Role Phone Marianela Farris MD, MPH [...] per day (including in other prescribed or fgqt-atx-upxdnsu medications). 0 05/17/20 Active Additional Information Patient taking differently: 650 mgOralEvery 6 hours PRN, May wean to an as needed basis if pain well controlled.Do not take more than 3000mg acetaminophen per day (including in other prescribed or vilb-omr-sirfdav medications)., Reported on 03/13/2024 amoxicillin (AMOXIL) 500 [...] the ER. Chest pain 03/13/2024 Atherosclerosis of [place] co ronary artery of [place] heart without angina pectoris 01/05/2024 Assessment & [...] She reports she has a brother and opnfti-ud-ayu who have had serious strokes with resulting [...] Pt is wondering about other podiatrists at [facility] of which we don't have any. [...] 1 Alive Brother 2 Alive lives in [place] Brother 3 Alive Father [facility]Age 65[facility] [place] Maternal [...] high school, GED, job training, learning the Setswana language, technical skills, or developing parenting skills)? [...] this topic Medical Devices Implanted Type Area Buffing Machine Operator Semiautomatic Device Identifier Shelf Expiration Date Model / Serial / Lot Knee Baseplate Size 1 Tibial Legion Titanium Alloy Nonporous Right - [id number] Implanted:Qty: 1 on 05/14/2023 by Faheem Cabrera MD at [facility] Right: Knee TRIPATHI [id number] 01/07/2032 [id number] / / [id number] Description:The implant type , laterality (when applicable), size, and expiration date have been visually and verbally confirmed by the Surgeon, Circulating RN and Scrub Personnel. Cement Bone 40g Simplex P Demineralized Matrix Radiopaque Void Filler Full Dose Single Vial Bx/10ea - [id number] Implanted:Qty: 1 on 05/14/2023 by Faheem Cabrera MD at [facility] Right: Knee [employer] [id number] 07/21/2025 6191-1-001 / / [id number] Description:The implant type , laterality (when applicable), size, and expiration date have been visually and verbally confirmed by the Surgeon, Circulating RN and Scrub Personnel. Cement Bone 40g Simplex P Demineralized Matrix Radiopaque Void Filler Full Dose Single Vial Bx/10ea - [id number] Implanted:Qty: 1 on 05/14/2023 by Faheem Cabrera MD at [facility] Right: Knee [employer] [id number] 07/21/2025 6191-1-001 / / [id number] Description:The implant type , laterality (when applicable), size, and expiration date have been visually and verbally confirmed by the Surgeon, Circulating RN and Scrub Personnel. Knee Implant Sz 4 Component Femoral Legion Oxinium Oxidized Zirconium Narrow Cruciate Retaining Rt N - [id number] Implanted:Qty: 1 on 05/14/2023 by Faheem Cabrera MD at [facility] Right: Knee BHUMI [id number] 12/07/2032 [id number] / / [id number] Description:The implant type , laterality (when applicable), size, and expiration date have been visually and verbally confirmed by the Surgeon, Circulating RN and Scrub Personnel. Knee Implant 26mm Patella Resurfacing Karuna Ii - [id number] Implanted:Qty: 1 on 05/14/2023 by Faheem Cabrera MD at [facility] Right: Knee BHUMI [id number] 03/29/2033 [id number] / / [id number] Description:The implant type , laterality (when applicable), size, and expiration date have been visually and verbally confirmed by the Surgeon, Circulating RN and Scrub Personnel. Knee Insert 2 10mm Sz 1 Legion Cr High Flex Xlpe - [id number] Implanted:Qty: 1 on 05/14/2023 by Faheem Cabrera MD at [facility] Right: Knee BHUMI [id number] 09/24/2032 [id number] / / [id number] Description:The implant type , laterality (when applicable), size, and expiration date have been visually and verbally confirmed by the Surgeon, Circulating RN and Scrub Personnel. Procedures Procedure Name Priority Date/Time Associated Diagnosis Comments COMPREHENSIVE METABOLIC PANEL (CMP) Routine 03/14/2024 5:32 AM EDT BI MAMMOGRAM [...] EDT) SODIUM 142 133 - 146 mmol/L [facility] POTASSIUM 4.5 3.3 - 5.1 mmol/L [facility] Comment:Specimen slightly he molyzed, result may be falsely elevated. CHLORIDE 105 96 - 108 mmol/L [facility] CO2 23 21 - 35 mmol/L [facility] BUN 16 6 - 19 mg/dL [facility] CREATININE 0.60 0.5 - 1.5 mg/dL [facility] GLUCOSE 121(H) 70 - 99 mg/dL [facility] ALBUMIN 3.7(L) 3.9 - 4.8 g/dL [facility] TOTAL PROTEIN 6.6 6.5 - 8.0 g/dL [facility] CALCIUM 8.7 8.4 - 10.3 mg/dL [facility] ALKALINE PHOSPHATASE 79 39 - 117 U/L [facility] TOTAL BILIRUBIN 0.7 0.0 - 1.2 mg/dL [facility] AST 43(H) 0 - 37 U/L [facility] ALT 39 0 - 40 U/L [facility] GLOBULIN 2.9 1 - 4.8 g/dL [facility] EGFR 102 >59 mL/min/1.7 3m2 [facility] Comment:Estimated glomerular filtration rate calculated using the CKD-EPI refit equation. ANION GAP 19 10 - 20 mmol/L [facility] Blood 03/14/2024 5:32 AM EDT 03/14/2024 5:57 AM EDT us Allie Ponce MAMMAL KEEPER LAB BLOOD BKR ORDERABLE S Final Result [facility] [address] [place], [place] [id number] * BI MAMMOGRAM DIAGNOSTIC WITH TOMOSYNTHESIS WITH [...] AM EDT) HCV NON-REACTIV E NON-REACTI VE [facility] Blood 12/14/2022 8:26 AM EDT 12/14/2022 8:31 AM EDT us Marianela Farris MD, MPH LAB BLOOD BKR ORDERA BLES Final Result Performing Organization Address City/State/[facility] Co de Phone Number [address] [address] * Pap Smear (06/02/2019 12:00 AM EST) 06/02/2019 06/03/2019 3:3 6 PM EST Narrative SEE NARRATIVE - 06/17/2019 12:06 [place] [address] FRANCHISE BROKER Cytology Report Patient Name: LAYLA RIVERA : 1960 (Age: 58) Sex: F Institution: [facility] Location: [facility] Date of Collection: 06/02/2019 Date of Reported: 06/17/2019 12:06 Results to: Germania Ruffin DO FINAL DIAGNOSIS A. VAGINAL, LIQUID BASED SPECIMEN: SPECIMEN ADEQUACY: Satisfactory for evaluation. INTERPRETATION: NEGATIVE FOR INTRAEPITHELIAL LESION OR MALIGNANCY. ADDITIONAL INFORMATION: Atrophic changes present. A manual review was performed for Almond Grinder purposes. This specimen was prescreened using the [employer] System. Electronically Signed Out By: Carlos [...] 52, 56, 58, 59, 66, 68) by [employer] HR-HPV analysis. Clinical correlation is advised. This HPV test was performed at [facility], [address] [place] [address]. This test has been FDA approved for [facility] cervical cytology specimens. The accuracy and precision of this test for all other specimen sources has been verified in the Cytopathology Laboratory of the [facility] and has not been cleared or approved by the U.S. Food and Drug Administration. Clinical correlation is advised. CLINICAL HISTORY Date of Last Menstrual Period: Menstrual History: No LMP given Other Clinical Conditions: Screening Pap SPECIMEN SOURCE A: VAGINAL, LIQUID BASED SPECIMEN Germania Ruffin DO CYTOLOGY ORDERABLES Final Result SEE NARRATIVE * ENDOSCOPY, COLON (05/19/2018 2:51 PM EDT) Narrative Transcriptions Pasquale Melendez MD - 05/19/2018 2:51 PM EDT Patient Name: Layla Riaz Nazario MD:: PASQUALE MELENDEZ MD, Procedure Date: 05/19/2018 2:51 PM Date of : 1960 Age: 57 Admit Type: Outpatient Gender: Female Room: [place] [address] Referring MD: Anjelica Chauhan Exam Type: Colonoscopy [...] bowel preparation was evaluated using the BBPS (Napier Bowel Preparation Scale) with scores of: Right [...] 2:51 PM Procedure Code(s): --- Professional --- 17038, Colonoscopy, flexible; diagnostic, including collection of specimen(s) by brushing or washing, when performed (separateprocedure) --- Technical --- 84988, Colonoscopy, flexible; diagnostic, including collection of specimen(s) by brushing or washing, when performed (separateprocedure) Diagnosis Code(s): --- Professional --- K64.8, Other hemorrhoids Z12.11, Encounter for screening for malignant neoplasm of colon --- Technical --- K64.8, Other hemorrhoids Z12.11, Encounter for screening for malignant neoplasm of colon CPT copyright 2016 [employer]. All rights reserved. The codes documented in this report are preliminary and upon dry cell and battery assembler reviewmay be revised to meet current compliance requirements. [address] [place] [address] Anjelica Chauhan MD GI PROCEDURE ORDERABLES Esdras sylwia Result - Final from Last 3 Months or Most Recently Relevant to Health Maintenance Insurance [email or web address] [place] [address] [employer] Advance Directives For more information, please contact: [phone] (9AM - 5PM [facility], Saturday-Saturday) Documents on File Type Date Recorded Patient On Site Wastewater Systems Technician Expl anation Healthcare Proxy 02/27/2021 1:52 PM * Full Code (Latest Code Status on File) Date Activated Date Inactivated Comments 03/13/2024 6:53 PM Question Answer Comments Code Status Confirmed With: Other (specify below ) * Full Code Date Activated Date Inactivated Comments 02/24/2021 6:04 AM 03/13/2024 6:53 PM Question Answer Comments Code Status Confirmed With: Patient Care Teams Road Marker Relationship Specialty Start Date End Date Marianela Farris MD, MPH [address] [place] [address] [email or web address] PCP - General Family Medicine 12/05/20 Additional Source Comments The information contained in this document represents components of the legal health record. It is not the complete legal health record.[facility]
--- OUTSIDE RECORDS SUMMARY | 2025-05-26 17:02 | XMS_ITS | Encounter Summary ---
Author Organization [facility] Address [address] [place] [address] [place] [address] Phone Care Team Providers Care Contract Writer Name Role Phone Germania Ruffin DO Primary Care Provider +1- [phone] Germania Ruffin DO Primary Care Provider +1- [phone] Uyen Vivas MD Primary Care Provider [phone] Marianela Farris MD, MPH Primary Care Provid er Encounter Details Date Type Department Care Team (Late st Contact Info) Description 01/26/2020 Ancillary Orders [facility] Podiatry [address] [place] [address] Areli Becerra DPM 10 [facility] 7 [place] [address] [email or web address] Chronic pain in left foot Social History [...] documented as of this encounter Care Teams Contract Writer Relationship Specialty Start Date End Date Germania Ruffin DO [address] [place] [address] [email or web address] PCP - General Family Medicine 03/30/19 08/09/20 Germania Ruffin DO [address] [place] [address] [email or web address] PCP - General Family Medicine 08/10/20 11/24/20 Uyen Vivas MD [address] [address] PCP - General Family Medicine 11/25/20 12/04/20 Marianela Farris MD, MPH [address] [address] [email or web address] PCP - General Family Medicine 12/05/20 documented as of this encounter Additional Source Comments The information contained in this document represents components of the legal health record. It is not the complete legal health record.[facility]
--- OUTSIDE RECORDS SUMMARY | 2025-05-26 17:02 | XMS_ITS | Encounter Summary ---
Author Organization [facility] Address [address] [place] [address] Phone Care Team Providers Care Administration Manager Name Role Phone Germania Ruffin DO Primary Care Provider +1- [phone] Germania Ruffin DO Primary Care Provider +1- [phone] Uyen Vivas MD Primary Care Provider [phone] Marianela Farris MD, MPH Primary Care Provid er Encounter Details Date Type Department Care Team (Late st Contact Info) Description 05/16/2020 Ancillary Orders [facility] Family Medicine [address] [place] [address] Germania Ruffin, DO [address] [place] [address] Breast screening Social History Tobacco Use Types [...] documented as of this encounter Care Teams Administration Manager Relationship Specialty Start Date End Date Germania Ruffin DO [address] [place] [address] [email or web address] PCP - General Family Medicine 03/30/19 08/09/20 Germania Ruffin DO [address] [place] [address] [email or web address] PCP - General Family Medicine 08/10/20 11/24/20 Uyen Vivas MD [address] [place] [address] [email or web address] PCP - General Family Medicine 11/25/20 12/04/20 Mraianela Farris MD, MPH [address] [place] [address] PCP - General Family Medicine 12/05/20 documented as of this encounter Additional Source Comments The information contained in this document represents components of the legal health record. It is not the complete legal health record.[facility]
--- OUTSIDE RECORDS SUMMARY | 2025-05-26 17:02 | XMS_ITS | Patient Health Record ---
[facility] Address [address] [place] [address] Care Team Providers Care Cnp Name Role Phone Germania Ruffin Primary Care Provider Kelvin Sullivan Unavailable [phone] Allergies Allergen (clinical drug ingredient) Drug/Non Drug [...] Start Date Coverage End Date [facility] [address] [place] [address] [id number] Brittani Mello Self - patient is the insured Medical (General) History Medical History History ICD Code asthma Back,Hip,and Knee pain Measles Mumps Chicken pox osteoarthritis Varicose veins Bunion Plantar fasciitis Surgical History Surgery Date(Month/Year) section 1993, 1996 appendectomy 2006
--- OUTSIDE RECORDS SUMMARY | 2025-05-26 17:02 | XMS_ITS | Encounter Summary ---
Author Organization [facility] Address [address] [place] [address] [place] [address] Phone Care Team Providers Care Charting Clerk Name Role Phone Marianela Farris MD, MPH Primary Care Provid er Encounter Details Date Type Department Care Team (Late st Contact Info) Description 05/17/2022 Procedure Pass [address] [address] Social History Tobacco Use Types Packs/Day Years [...] documented as of this encounter Care Teams Charting Clerk Relationship Specialty Start Date End Date Marianela Farris MD, MPH [address] [place] [address] [email or web address] PCP - General Family Medicine 12/05/20 documented as of this encounter Additional Source Comments The information contained in this document represents components of the legal health record. It is not the complete legal health record.[facility]
--- OUTSIDE RECORDS SUMMARY | 2025-05-26 17:02 | XMS_ITS | Encounter Summary ---
Author Organization [facility] Address [address] [place] [address] [place] [address] Phone Care Team Providers Care Under Baster Name Role Phone Marianela Farris MD, MPH Primary Care Provid er Encounter Details Date Type Department Care Team (Late st Contact Info) Description 09/11/2023 Procedure Pass [facility], [address] [address] Social History Tobacco Use Types Packs/Day Years [...] documented as of this encounter Care Teams Under Baster Relationship Specialty Start Date End Date Marianela Farris MD, MPH [address] [place] [address] [email or web address] PCP - General Family Medicine 12/05/20 documented as of this encounter Additional Source Comments The information contained in this document represents components of the legal health record. It is not the complete legal health record.[facility]
--- OUTSIDE RECORDS SUMMARY | 2025-05-26 17:02 | XMS_ITS | Encounter Summary ---
Author Organization [facility] Address [address] [place] [address] Phone Care Team Providers Care Fixture Repairer Fabricator Name Role Phone Germania Ruffin DO Primary Care Provider +1- [phone] Germania Ruffin DO Primary Care Provider +1- [phone] Uyen Vivas MD Primary Care Provider [phone]- [phone] Marianela Farris MD, MPH Primary Care Provid er Encounter Details Date Type Department Care Team (Late st Contact Info) Description 04/15/2019 Ancillary Orders [facility],Outside Imaging [address] [place] [address] System, Provider Not In, [place] [address] Social History Tobacco Use Types Packs/Day Years [...] documented as of this encounter Care Teams Fixture Repairer Fabricator Relationship Specialty Start Date End Date Germania Ruffin DO [address] [place] [address] [email or web address] PCP - General Family Medicine 03/30/19 08/09/20 Germania Ruffin DO [address] [place] [address] [email or web address] PCP - General Family Medicine 08/10/20 11/24/20 Uyen Vivas MD [address] [place], [place] [address] [email or web address] PCP - General Family Medicine 11/25/20 12/04/20 Marianela Farris MD, MPH [address] [place] [address] [email or web address] PCP - General Family Medicine 12/05/20 documented as of this encounter Additional Source Comments The information contained in this document represents components of the legal health record. It is not the complete legal health record.[facility]
--- OUTSIDE RECORDS SUMMARY | 2025-05-26 17:02 | XMS_ITS | Encounter Summary ---
Author Organization [facility] Address [address] [place] [address] Phone Care Team Providers Care Manager Contract Name Role Phone Marianela Farris MD, MPH Primary Care Provid er Encounter Details Date Type Department Care Team (Late st Contact Info) Description 11/12/2023 Procedure Pass [facility], [address] [place] [address] Social History Tobacco Use Types Packs/Day Years [...] documented as of this encounter Care Teams Manager Contract Relationship Specialty Start Date End Date Marianela Farris MD, MPH [address] [place] [address] [email or web address] PCP - General Family Medicine 12/05/20 documented as of this encounter Additional Source Comments The information contained in this document represents components of the legal health record. It is not the complete legal health record.[facility]
--- OUTSIDE RECORDS SUMMARY | 2025-05-26 17:02 | XMS_ITS | Encounter Summary ---
Author Organization [facility] Address [address] [place] [address] [place] [address] Phone Care Team Providers Care Acetylene Torch Solderer Name Role Phone Marianela Farris MD, MPH Primary Care Provid er Encounter Details Date Type Department Care Team (Late st Contact Info) Description 09/18/2023 Procedure Pass [facility] PERIOPERATIVE DEPT [address] [place] [address] Social History Tobacco Use Types [...] documented as of this encounter Care Teams Acetylene Torch Solderer Relationship Specialty Start Date End Date Marianela Farris MD, MPH [address] [place] [address] [email or web address] PCP - General Family Medicine 12/05/20 documented as of this encounter Additional Source Comments The information contained in this document represents components of the legal health record. It is not the complete legal health record.[facility]
--- OUTSIDE RECORDS SUMMARY | 2025-05-26 17:02 | XMS_ITS | Encounter Summary ---
Author Organization [facility] Address [address] [place] [address] Phone Care Team Providers Care Jig Grinder Name Role Phone Marianela Farris MD, MPH Primary Care Provid er Encounter Details Date Type Department Care Team (Late st Contact Info) Description 05/17/2022 Transcribe Orders Virtual Department [address] [place] [address] Marianela Farris MD, MPH 15 [facility] Micheal [address] [place] [address] [email or web address] Breast screening (Primary Dx) Social History Tobacco [...] documented as of this encounter Care Teams Jig Grinder Relationship Specialty Start Date End Date Marianela Farris MD, MPH [address] [place] [address] [email or web address] PCP - General Family Medicine 12/05/20 documented as of this encounter Additional Source Comments The information contained in this document represents components of the legal health record. It is not the complete legal health record.[facility]
--- OUTSIDE RECORDS SUMMARY | 2025-05-26 17:02 | XMS_ITS | Encounter Summary ---
Author Organization [facility] Address [address] [place] [address] Phone Care Team Providers Care Potato Inspector Name Role Phone Germania Ruffin DO Primary Care Provider +1- [phone] Germania Ruffin DO Primary Care Provider +1- [phone] Uyen Vivas MD Primary Care Provider Marianela Farris MD, MPH Primary Care Provid er Encounter Details Date Type Department Care Team (Late st Contact Info) Description 05/16/2020 Procedure Pass [facility] [address] [place] [address] Social History Tobacco Use Types Packs/Day Years [...] documented as of this encounter Care Teams Potato Inspector Relationship Specialty Start Date End Date Germania Ruffin DO [address] [place] [address] [email or web address] PCP - General Family Medicine 03/30/19 08/09/20 Germania Ruffin DO [address] [place] [address] [email or web address] PCP - General Family Medicine 08/10/20 11/24/20 Uyen Vivas MD [address] [place] [address] PCP - General Family Medicine 11/25/20 12/04/20 Marianela Farris MD, MPH [address] [place] [address] PCP - General Family Medicine 12/05/20 documented as of this encounter Additional Source Comments The information contained in this document represents components of the legal health record. It is not the complete legal health record.[facility]
--- OUTSIDE RECORDS SUMMARY | 2025-05-26 17:03 | XMS_ITS | Encounter Summary ---
Author Organization [facility] Address [address] [place] [address] [place] [address] Phone Care Team Providers Care Armature Straightener Name Role Phone Marianela Farris MD, MPH Primary Care Provid er Encounter Details Date Type Department Care Team (Late st Contact Info) Description 04/18/2021 Procedure Pass [address] [address] Social History Tobacco Use Types Packs/Day Years [...] documented as of this encounter Care Teams Armature Straightener Relationship Specialty Start Date End Date Marianela Farris MD, MPH [address] [place] [address] [email or web address] PCP - General Family Medicine 12/05/20 documented as of this encounter Additional Source Comments The information contained in this document represents components of the legal health record. It is not the complete legal health record.[facility]
--- OUTSIDE RECORDS SUMMARY | 2025-05-26 17:03 | XMS_ITS | Encounter Summary ---
Author Organization [facility] Address [address] [place] [address] Phone Care Team Providers Care Shell Mold Bonding Machine Operator Name Role Phone Marianela Farris MD, MPH Primary Care Provid er Encounter Details Date Type Department Care Team (Late st Contact Info) Description 09/24/2023 Procedure Pass [facility]iology [address] [place] [address] Social History Tobacco Use Types Packs/Day Years [...] documented as of this encounter Care Teams Shell Mold Bonding Machine Operator Relationship Specialty Start Date End Date Marianela Farris MD, MPH [address] [place] [address] [email or web address] PCP - General Family Medicine 12/05/20 documented as of this encounter Additional Source Comments The information contained in this document represents components of the legal health record. It is not the complete legal health record.[facility]
--- OUTSIDE RECORDS SUMMARY | 2025-05-26 17:03 | XMS_ITS | Encounter Summary ---
Author Organization [facility] Address [address] [place] [address] Phone Care Team Providers Care Cream Tester Name Role Phone Germania Ruffin DO Primary Care Provider +1- [phone] Germania Ruffin DO Primary Care Provider +1- [phone] Uyen Vivas MD Primary Care Provider +1- [phone] Marianela Farris MD, MPH Primary Care Provid er Encounter Details Date Type Department Care Team (Late st Contact Info) Description 04/15/2019 Ancillary Orders [facility],Outside Imaging [address] [place] [address] System, Provider Not In, [place] [address] Social History Tobacco Use Types Packs/Day Years [...] documented as of this encounter Care Teams Cream Tester Relationship Specialty Start Date End Date Germania Ruffin DO [address] [place] [address] .[employer] PCP - General Family Medicine 03/30/19 08/09/20 Germania Ruffin DO [address] [place] [address] .[employer] PCP - General Family Medicine 08/10/20 11/24/20 Uyen Vivas MD [address] [place], [place] [phone] PCP - General Family Medicine 11/25/20 12/04/20 Marianela Farris MD, MPH [address] [place] [address] [email or web address] PCP - General Family Medicine 12/05/20 documented as of this encounter Additional Source Comments The information contained in this document represents components of the legal health record. It is not the complete legal health record.[facility]
--- OUTSIDE RECORDS SUMMARY | 2025-05-26 17:03 | XMS_ITS | Encounter Summary ---
Author Organization [facility] Address [address] [place] [address] Phone Care Team Providers Care Glass Setter Name Role Phone Marianela Farris MD, MPH Primary Care Provid er Encounter Details Date Type Department Care Team (Late st Contact Info) Description 09/05/2021 Procedure Pass [facility], [address] [address] Social History Tobacco Use Types Packs/Day Years [...] documented as of this encounter Care Teams Glass Setter Relationship Specialty Start Date End Date Marianela Farris MD, MPH [address] [place] [address] [email or web address] PCP - General Family Medicine 12/05/20 documented as of this encounter Additional Source Comments The information contained in this document represents components of the legal health record. It is not the complete legal health record.[facility]
== END 2025-05-26 14:20 | disposition home or self-care (01) ==
LOC: HO.HOS 13:51
PROVIDERS: PCP Family Medicine; Visit Provider Orthopaedic Surgery
DX: M25.562 Pain in left knee (principal)
CPT/HCPCS: 99024

== ENCOUNTER 2025-06-10 14:00 | Outpatient (RCR) | payer OTHER, SELFPAY ==
--- NOTE | 2025-05-05 14:54 | MHC.PT.EP ---
[facility] [place] Office [place] Office [place] Office [address] Marilu Martinez [address] [phone] F: [phone] F: [phone] F: [phone] F: [phone] Physical Therapy Plan of Care Date of Evaluation: 05/05/25 Date of Surgery: 04/19/25 Diagnosis: L TKR Assessment: Pt IS 64 YO F S/P L TKR ON 04/[address] SIDDIQUI. REFERRED HERE FOR OUTPt PT BY HIWOT RODRIGUEZ. JUST FINISHED HOME PT 2 DAYS AGO. PRESENTS WITH GOOD ROM L KNEE, WEAK L QUAD AND HIP FLEXOR, L KNEE SWELLING,GT WITH WW, PAIN AFFECTING ADLS. Pt'S PRESENT FOR EVAL. Pt IS GOOD PT CANDIDATE TO HELP DECREASE PAIN, IMPROVE STRENGTH, BALANCE AND FUNCTIONAL MOBILITY Frequency and Duration: The patient will be seen 2X/WK X 8 WKS Short Term Goals: 1. INCREASED AWARENESS KNEE CARE 2. AROM L KNEE 0-125 3. Pt ABLE TO PERF SLR ON L X 20 R WITHOUT QUAD LAG 4. I HEP WITH DC EX PLAN Residential Goals: 1. GT WITHOUT AD WITH GOOD PATTERN 2. DECREASED L KNEE PAIN AT LEAST 50% WITH ADLS 3. INCREASED L KNEE EXT STRENGTH AT LEAST 1/2 MM GRADE 4. DECREASED SWELLING (MID PAT GIRTH) 1 INCH (18 INCH SOC) 5. IMPROVED LEFI (35/80 SOC) Treatment Plan: Modalities to reduce pain, spasms and effusion. Manual therapy to restore motion and function. Therapeutic exercise to improve strength and flexibility. Neuromuscular re-education for posture and balance. Therapeutic activities to return to functional activities of daily living. Electronically signed by: RACH WILLIS PT Please sign and return to therapist. Thank you for your referral.
--- NOTE | 2025-06-14 16:30 | MHC.PT.DC ---
[facility] [place] Office [place] [facility] [place] [facility] [address] Marilu Martinez [address] [phone] F: [phone] F: [phone] F: [phone] F: [phone] Physical Therapy Discharge Report Diagnosis: L TKR Date of Surgery: 04/19/25 L knee TKR Date of Evaluation: 05/05/25 Date of Discharge: 06/14/25 Treatments to Date: 9 Cancellations to Date: No Shows to Date: Discharge Status: Improved Function Independent with HEP Patient Elected to Stop Discharge Summary: PER ASSESSMENT FROM LAST NOTE BY Kyle PERKINS REELING MACHINE OPERATOR ON 06/10 Pt is 7wks post op 06/07. ROM -6 -124* Ex modified to libia. Pt to continue HEP Ed to continue TR at heel prop stretch at home. Requests D/C today. Electronically signed by: RACH WILLIS PT Please sign and return to therapist. Thank you for your referral.
== END 2025-06-14 16:32 | disposition home or self-care (01) ==
LOC: HO.PT 14:00
PROVIDERS: Visit Provider Physician Assistant
DX: Z47.1 Aftercare following joint replacement surgery (principal); Z96.652 Presence of left artificial knee joint
CPT/HCPCS: 97110; 97162; 97530; 97535